=== PATIENT | female | born 1950 | race Caucasian/White ===

== ENCOUNTER 2017-01-06 10:18 | Observation (INO) | payer MEDICARE, MEDICAID ==
[2017-01-06 11:17] LABS: #Basophils 0.1 thou/uL (0.0-0.2); #Eosinphils 0.1 thou/uL (0.0-0.7); #Lymphocytes 1.3 thou/uL (1.20-3.40); #Monocytes 0.5 thou/uL (0.11-0.59); #Neutrophils 6.9 thou/uL (1.40-6.50); %Basophils 0.6 % (0.0-1.0); %Eosinophils 1.3 % (0.0-10.0); %Lymphocytes 14.6 % (21.0-51.0); %Monocytes 5.5 % (0.0-10.0); Hematocrit 36.5 % (36.0-47.0); Mean Platelet Volume 7.7 fL (7.4-10.4); Red Blood Cell (RBC) Count 3.81 mill/uL (4.20-5.40); White Blood Cell (WBC) Count 8.8 thou/uL (4.8-10.8)
[2017-01-06 11:24] LABS: PTT 28.6 SEC (22.9-36.1); Prothrombin Time 13.4 SEC (12.0-14.7)
[2017-01-06] MEDS ORDERED: Metoclopramide HCl 10 MG/2 ML VIAL ONE (11:44)
[2017-01-06] MEDS ORDERED: Acetaminophen 500 MG TAB ONE (11:44)
[2017-01-06 11:55] LABS: ALT (SGPT) 22 U/L (8-55); AST (SGOT) 19 U/L (5-34); Alkaline Phosphatase 100 U/L (40-150); Anion Gap 16 mmol/L (10-20); BUN (Urea Nitrogen) 21 mg/dL (9.8-20.1); Bilirubin, Total 0.3 mg/dL (0.2-1.2); CK (CPK) 112 U/L (29-168); Calc. Creatinine Clearance 0 mL/min (70-130); Calcium 9.8 mg/dL (7.8-10.44); Carbon Dioxide 28 mmol/L (23-31); Chloride 102 mmol/L (98-107); Estimated GFR-MDRD 43; Lipase 34 U/L (8-78); Protein, Total 7.3 g/dL (6.0-8.3)
[2017-01-06 12:00] LABS: Troponin I Less than 0.010 ng/mL (< 0.028)
[2017-01-06] MEDS ORDERED: diphenhydrAMINE HCl 50 MG/ML 1 ML VIAL ONE (13:21)
--- NOTE | 2017-01-06 13:43 | CT ---
CT BRAIN: HISTORY: Headache. Left arm and lip numbness. FINDINGS: Noncontrast enhanced CT images of the brain are obtained. Motion artifact degrade some of the images. No evidence of acute intracranial masses, hemorrhages, strokes, or contusions seen. IMPRESSION: Normal CT brain. POS: [facility]
[2017-01-06] MEDS ORDERED: methylPREDNISolone Sod Succ/PF 125 MG/2 ML VIAL ONE (15:12)
[2017-01-06] MEDS ORDERED: Water For Inject, Bacteriostat 30 ML ONE (15:25)
--- NOTE | 2017-01-06 16:36 | RAD ---
AP VIEW CHEST: 01/06/17 HISTORY: Shortness of breath. AP view chest obtained on 01/06/17. Comparison made to previous exam from 02/20/16. AP view chest demonstrates the lungs to be well aerated. No evidence of active intrathoracic disease seen. No evidence of effusions, pneumonia, or pneumothorax seen. IMPRESSION: Unremarkable AP view chest. No significant interval changes noted since the previous comparison ches t radiographs. POS: [facility]
[2017-01-06] MEDS ORDERED: Dextrose 50% Abboject 50 ML SYRINGE SLOW IVP PRN (20:20)
[2017-01-06] MEDS ORDERED: cloNIDine HCl 0.1 MG TAB PO PRN (20:20)
[2017-01-06] MEDS ORDERED: Dextrose 5% in Water 1,000 ML IV PRN (20:20)
[2017-01-06] MEDS ORDERED: Ondansetron ODT 4 MG TAB PO PRN (20:20)
[2017-01-06] MEDS ORDERED: Ondansetron HCl/PF 4 MG/2 ML Vial IVP PRN (20:20)
[2017-01-06] MEDS ORDERED: Acetaminophen 500 MG TAB PO PRN (20:20)
[2017-01-06] MEDS ORDERED: HumaLOG 300 UNITS/3 ML VIAL SC PRN ×2 (20:20)
[2017-01-06] MEDS: Atorvastatin Calcium 40 MG TAB PO SCH (20:44)
[2017-01-06] MEDS ORDERED: Famotidine 20 MG TAB PO SCH (21:00)
[2017-01-06 21:07] VITALS: BMI 27.2
--- NOTE | 2017-01-06 22:51 | HP ---
DATE OF ADMISSION: 01/06/2017 PRIMARY CARE PROVIDER: Dr. Urena. CHIEF COMPLAINT: Facial paraesthesia and left arm tingling. HISTORY OF PRESENT ILLNESS: This is a 66-year-old female, who resides at a [facility] in [place], [place], who complained of right-sided headache with associated parest hesias of the cheek and neck region with some tingling of the left hand. The patient states the sym ptoms began approximately 4:00 a.m., awaking her from sleep, at which point the patient received Tyl enol for relief. The patient fell back to sleep and awoke approximately 7:45 a.m. on the date of ad mission and complaining of similar and recurrent symptoms. The patient denies any visual disturbanc e, unilateral weakness, difficulty with speech, recent head trauma, fever, chills or exposure histor y. Patient initially stated that right-sided headache was dull and sharp and rated the pain as 8/10 . The patient denies any recent trauma, injury, recent surgical interventions or dental procedures. The patient did report mild nausea with the symptoms without emesis and denied dizziness, vertigo or fall. The patient states she takes daily aspirin, but was taken off chronic Plavix by her cardio logist. In the emergency room, the patient underwent general evaluation including CT of the brain s howing no acute intracranial process. Patient did receive multiple medications including DuoNebs, S christiano-Medrol, diphenhydramine, metoclopramide, intravenous normal saline and Tylenol. The patient was referred to the Hospitalist Service for TIA workup. PAST MEDICAL HISTORY: 1. Diabetes mellitus type 2. 2. Coronary artery disease, medically managed. 3. Chronic obstructive pulmonary disease. 4. Chronic hypoxic respiratory failure on chronic oxygen supplementation at 3 liters per minute by nasal cannula. 5. Dyslipidemia. 6. Hypertension. 7. Physical deconditioning. 8. Anxiety and depression. 9. Obesity. 10. Peripheral vascular disease. 11. Gastroesophageal reflux disease. 12. Diabetic neuropathy. 13. Ischemic cardiomyopathy with ejection fraction of 25-30%. PAST SURGICAL HISTORY: 1. Status post cardiac stent placement. 2. Status post angioplasty of the lower extremity. 3. Status post colon resection. 4. Status post surgery for ectopic x2. CURRENT MEDICATIONS: Based on prior admission 02/2016: 1. Tudorza Pressair 400 mcg 1 puff inhaled b.i.d. 2. Albuterol sulfate 2.5 mg inhaled q.2 hours p.r.n. 3. Aspirin 325 mg p.o. daily. 4. Lipitor 20 mg p.o. daily. 5. Calcium carbonate 1000 mg p.o. daily. 6. Vitamin D3 2000 units p.o. daily. 7. Ferrous sulfate 325 mg 1 tab p.o. b.i.d. 8. Breo Ellipta 100/25 mcg 1 inhalation daily. 9. Gabapentin 100 mg p.o. at bedtime. 10. Lopid 600 mg p.o. b.i.d. 11. Lisinopril 10 mg 1 tab p.o. daily. 12. Ativan 0.5 mg p.o. daily p.r.n. 13. Nitrostat 0.4 mg sublingually every 5 minutes p.r.n. chest pain. 14. Zantac 150 mg p.o. b.i.d. 15. Metformin 500 mg p.o. b.i.d. 16. Trazodone 75 mg p.o. at bedtime. ALLERGIES: CIPROFLOXACIN and NAPROXEN. FAMILY HISTORY: No inheritable diseases per patient report. SOCIAL HISTORY: Patient resides at a [facility], previously at [facility] for 6-7 years. Ambulates with the use of a rolling walker. Chronic oxygen u se at 3 liters per minute by nasal cannula. No current alcohol, tobacco or illicit drug use. REVIEW OF SYSTEMS: The following complete review of systems was negative, unless otherwise mentione d in the HPI or below: CONSTITUTIONAL: Weight loss or gain, ability to conduct usual activities. SKIN: Rash, itching. EYES: Double vision, pain. ENT/MOUTH: Nose bleeding, neck stiffness, pain, tenderness. CARDIOVASCULAR: Palpitations, dyspnea on exertion, orthopnea. RESPIRATORY: Shortness of breath, wheezing, cough, hemoptysis, fever or night sweats. GASTROINTESTINAL: Poor appetite, abdominal pain, heartburn, nausea, vomiting, constipation, or diar jd. GENITOURINARY: Urgency, frequency, dysuria, nocturia. MUSCULOSKELETAL: Pain, swelling. NEUROLOGIC/PSYCHIATRIC: Anxiety, depression. ALLERGY/IMMUNOLOGIC: Skin rash, bleeding tendency. Otherwise negative except as stated per HPI. PHYSICAL EXAMINATION: VITAL SIGNS: Currently, blood pressure 178/84, pulse 90, respiratory rate 17, temperature 97.7 degr ees Fahrenheit, O2 saturation 100% on 3 liters per minute by nasal cannula. GENERAL APPEARANCE: This is a 66-year-old female, alert and oriented x3, pleasant, conver simona, in no acute distress. HEENT: Pupils are equal, round, and reactive to light and accommodation. Extraocular muscles are i ntact. No scleral icterus, no conjunctival injection. Nares patent. OP is edentulous. No oral le sions noted. NECK: Supple, no cervical adenopathy, no thyromegaly, no carotid bruits, no JVD appreciated. Cervi nancy spine with full active and passive range of motion. No meningeal signs appreciated. LUNGS: Diminished breath sounds bilaterally. No expiratory wheeze noted. CARDIOVASCULAR: S1, S2 with distant heart sounds. ABDOMEN: Obese, soft, nontender, nondistended. Bowel sounds are positive in all 4 quadrants. Ther e is no hepatosplenomegaly, no abdominal bruits, no rebound or guarding appreciated. EXTREMITIES: Warm and dry with fair turgor. No clubbing, cyanosis or asymmetric edema appreciated. Pulses palpable distally at the dorsalis pedis, posterior tibial, and popliteal arteries bilateral ly. Capillary refill less than 2 seconds. NEUROLOGIC: Cranial nerves II-XII are grossly intact. No focal or lateralizing signs appreciated. PERTINENT LABORATORY AND X-RAY FINDINGS: Sodium 141, potassium 4.7, chloride 102, CO2 of 28, BUN 21 , creatinine 1.25 with estimated GFR 43, glucose 124, calcium 9.8. LFTs within normal limits. Trop onin negative x1. Lipase 34. CBC showed a white blood cell count 8.8, hemoglobin 11.4, hematocrit 37, platelet count 259 with 78% neutrophils. PT 13.4, INR 1.0, PTT 28.6. CT of the brain without c ontrast dated 01/06/2017, showed no acute intracranial process. Portable chest x-ray dated 01/07/20 17, showed no acute cardiopulmonary process. EKG dated 01/06/2017, by my interpretation shows sinus mechanism with a first degree AV block. Heart rates in the 80s-90s. Normal R-wave progression not ed in the precordial leads. Normal axis. No acute ST-T wave changes appreciated. ASSESSMENT AND PLAN: 1. Facial paresthesias with headache/questionable transient ischemic attack. The patient will be p laced in observation status and stroke unit. Continue aspirin 325 mg p.o. daily. Check 2D transtho racic echocardiogram and carotid Doppler study. No current evidence to suggest acute intracranial p rocess or neurologic event. Check fasting lipid profile in the a.m. Questionable tension headache versus complex migraine with paresthesias. 2. Hypertension. We will resume patient's home antihypertensive regimen and monitor clinically. 3. Hyperlipidemia. Continue Lipitor 40 mg p.o. at bedtime. Check fasting lipid profile in the a.m . 4. Chronic hypoxemic respiratory failure and chronic oxygen supplementation at 3 liters per minute. Continue general supportive measures. Continue oxygen to maintain O2 saturation greater than or e qual to 90%. No evidence to suggest acute chronic obstructive pulmonary disease exacerbation. 5. Coronary artery disease, chronic and stable. Resume home medications and monitor clinically. 6. Diabetes mellitus type 2. Stable currently. Resume metformin 500 mg p.o. b.i.d. Accu-Cheks a. c. and at bedtime. Insulin sliding scale for reflexive coverage. 7. Prophylaxis. Sequential compression devices while in bed. Pepcid 20 mg p.o. b.i.d. 8. Code status is FULL. Surrogate medical decision maker is patient's son.
[2017-01-07 06:05] LABS: Anion Gap 14 mmol/L (10-20); BUN (Urea Nitrogen) 23 mg/dL (9.8-20.1); Calc. Creatinine Clearance 53 mL/min (70-130); Calcium 9.6 mg/dL (7.8-10.44); Carbon Dioxide 29 mmol/L (23-31); Chloride 104 mmol/L (98-107); Cholesterol 160 mg/dl (< 200 Desired); Estimated GFR-MDRD 43; LDL Cholesterol, Calculated 97 mg/dL
[2017-01-07 06:48] LABS: Hematocrit 33.2 % (36.0-47.0); Mean Platelet Volume 7.9 fL (7.4-10.4); Neutrophil 66 % (42-75); Red Blood Cell (RBC) Count 3.49 mill/uL (4.20-5.40); White Blood Cell (WBC) Count 7.3 thou/uL (4.8-10.8)
[2017-01-07] MEDS: Aspirin 325 mg Enteric Coated Tablet PO SCH (08:44)
[2017-01-07] MEDS ORDERED: traMADol HCl 50 MG TAB PO PRN (10:43)
--- NOTE | 2017-01-07 10:48 | ULT ---
CAROTID DOPPLER ULTRASOUND EVALUATION: DATE: 01/07/17. HISTORY: TIAs, headaches. FINDINGS: Multiple longitudinal and transverse images of the carotid arteries obtained using a Multihertz line ar ray transducer. Real-time, color flow, and spectral waveform Doppler analysis demonstrates exten sive calcified and noncalcified ulcerated plaques in the right and left common carotid arteries exte nding into the right and left internal carotid arteries. Flow velocities are slightly increased in the left ICA measuring 133/27 cm/s. Findings suggest approximately 50% bilateral CCA as well as 30- 40% right ICA and 50-60% left ICA stenosis. Right and left vertebral arteries were not able to be visualized. The patient asked that the exam b e stopped. IMPRESSION: Bilateral common carotid artery and internal carotid artery carotid arterial disease and stenosis wi th calcified and noncalcified plaques. POS: [facility]
[2017-01-07] MEDS ORDERED: ALPRAZolam 0.25 MG TAB PO SCH (13:30)
[2017-01-07] MEDS ORDERED: cloNIDine HCl 0.1 MG TAB PO PRN (15:16)
--- NOTE | 2017-01-07 15:29 | PDOC.PN ---
- Subjective Encounter Start Date: 01/07/17 Encounter Start Time: 15:25 Subjective: f/u for ?TIA. Work up unrevealing but BP remains labile. c/o prominent -: PENNY. No fever or chills. - Objective Resuscitation Status: Resuscitation Status FULL:Full Resuscitation MAR Reviewed: Yes Vital Signs & Weight: Vital Signs (12 hours) Temp Pulse Resp BP Pulse Ox 01/07/17 14:27 80 16 100 01/07/17 12:00 98.3 F 95 22 H 216/84 H 97 01/07/17 10:44 81 16 100 01/07/17 08:45 98 F 83 18 187/77 H 97 01/07/17 08:00 98 F 83 18 01/07/17 07:23 98 01/07/17 07:22 81 20 98 01/07/17 04:13 97.8 F 72 16 128/59 L 97 Weight Weight 168 lb 9.6 oz I&O: 01/06/17 01/07/17 01/08/17 06:59 06:59 06:59 Intake Total 300 Balance 300 Result Diagrams: 01/07/17 05:19 01/07/17 05:19 Additional Labs: Accuchecks 01/07/17 01/07/17 01/06/17 11:05 05:54 20:44 POC Glucose 135 H 127 H 189 H Laboratory Tests 01/06/17 01/06/17 01/07/17 10:53 10:53 05:19 Hgb 11.4 L BUN 21 H Creatinine 1.25 H Triglycerides 111 Cholesterol 160 LDL Cholesterol, Calc 97 HDL Cholesterol 41 Radiology Reviewed by me: Yes (Carotid sono - bilat dz without focal stenosis) EKG Reviewed by me: Yes (Tele - SR in 80's) Phys Exam - Physical Examination Constitutional: NAD HEENT: PERRLA, oral pharynx no lesions Neck: no JVD, supple Respiratory: no wheezing, clear to auscultation bilateral Cardiovascular: RRR Gastrointestinal: soft, non-tender, no distention, positive bowel sounds Musculoskeletal: no edema, pulses present Neurological: normal sensation, moves all 4 limbs Psychiatric: A&O x 3 Skin: normal turgor, cap refill <2 seconds Dx/Plan (1) TIA (transient ischemic attack) Status: Acute Comment: ? TIA vs uncontrolled HTN and paresthesias, continue BP control measures, ASA and monitor clinically. No acute evidence of CVA, Lipitor 40mg HS (2) CAD (coronary artery disease) Code(s): I25.10 - ATHSCL HEART DISEASE OF [place] CORONARY ARTERY W/O ANG PCTRS Status: Chronic (3) Chronic respiratory failure with hypoxia Code(s): J96.11 - CHRONIC RESPIRATORY FAILURE WITH HYPOXIA Status: Chronic Comment: Continue O2 supplementation, baseline respiratory status (4) Hypertension Code(s): I10 - ESSENTIAL (PRIMARY) HYPERTENSION Status: Chronic Comment: Uncontrolled after apparent d/c of all prior antihypertensives, start Lisinopril 10mg daily and Metoprolol 12.5mg BID, titrate BP regimen to clinical response (5) Type 2 diabetes mellitus Status: Chronic Comment: ISS, Metformin - Plan PT/OT, social services director, out of bed/ambulate, DVT proph w/SCDs Start Lisinopril 10mg daily -: Start Metoprolol 12.5mg BID -: Continue ASA and Lipitor -: Pain control for PENNY -: Xanax 0.25mg TID prn * 2D Echo pending
[2017-01-07] MEDS ORDERED: Lisinopril 10 MG TAB PO SCH (15:45)
[2017-01-07] MEDS ORDERED: Lisinopril 20 MG TAB PO SCH (16:00)
[2017-01-07] MEDS ORDERED: Metoprolol Tartrate 25 MG TAB PO SCH (18:00)
[2017-01-07] MEDS: ALPRAZolam 0.25 MG TAB PO SCH (20:35)
[2017-01-07] MEDS: Atorvastatin Calcium 40 MG TAB PO SCH (20:36)
[2017-01-07] MEDS ORDERED: Famotidine 20 MG TAB PO SCH (21:00)
[2017-01-08] MEDS ORDERED: Metoprolol Tartrate 25 MG TAB PO SCH (09:00)
[2017-01-08] MEDS ORDERED: Lisinopril 10 MG TAB PO SCH (09:00)
[2017-01-08] MEDS: Aspirin 325 mg Enteric Coated Tablet PO SCH (10:04)
[2017-01-08] MEDS: ALPRAZolam 0.25 MG TAB PO SCH (10:06)
--- NOTE | 2017-01-08 10:32 | DIS ---
DATE OF ADMISSION: 01/06/2017 DATE OF DISCHARGE: 01/08/2017 DISCHARGE DIAGNOSES: 1. Transient ischemic attack secondarily to #1, resolved. 2. Hypertension, improved. 3. Coronary artery disease, chronic and stable. 4. Chronic hypoxic respiratory failure with oxygen supplementation at 2-3 liters per minute by nasa l cannula. 5. Diabetes mellitus type 2, stable. 6. Chronic kidney disease stage 3. 7. Dyslipidemia. 8. Chronic normocytic anemia, stable. 9. Anxiety disorder. CONSULTATIONS: None. PERTINENT LABORATORY DATA AND X-RAY FINDINGS: Creatinine ranged between 1.23-1.25 with estimated GF R of 43. Total cholesterol 160, triglycerides 111, HDL 41, LDL 97. CBC showed hemoglobin ranged be tween 10.6-11.4. CT of the brain without contrast dated 01/06/2017 showed no acute intracranial pro cess. Portable chest x-ray dated 01/06/2017 showed no acute cardiopulmonary process. Carotid Doppl er study dated 01/07/2017 showed bilateral carotid artery disease without focal stenosis. A 2D anne sthoracic echocardiogram dated 01/07/2017 showed ejection fraction of 55%-60%. Technically limited exam. Grade I/III diastolic dysfunction. Moderate left atrial enlargement. HOSPITAL COURSE: Patient was observed on the stroke unit after initially presenting with facial and left arm paresthesias. Patient underwent general stroke protocol after concern for TIA versus CVA including CT imaging of the brain showing no acute intracranial process. The patient's symptoms res olved rapidly and patient was treated with aspirin 325 mg. The patient continued under general stro ke protocol including 2D transthoracic echocardiogram and carotid Doppler study with carotid ultraso und showing carotid artery disease without focal stenosis or need for surgical intervention. The pa tient was continued on aspirin therapy and in addition Lipitor 40 mg at bedtime. The patient was al so noted with labile hypertension and essentially untreated initiated on metoprolol 12.5 mg b.i.d. a nd lisinopril 10 mg daily. The patient may need additional titration of her antihypertensive regime n on an ongoing basis after discharge. Overall, the patient remained clinically stable throughout t he remainder of the hospital course, tolerating regular oral intake, ambulating with the use of a ro lling walker with telemetry monitoring showing sinus mechanism without acute arrhythmia or dysrhythm ia. The patient is clinically stable and ready for discharge 01/08/2017. DISCHARGE MEDICATIONS: 1. Enteric coated aspirin 81 mg 1 tablet p.o. daily. 2. Xanax 0.125 mg p.o. b.i.d. 3. Tudorza Pressair 1 puff inhaled b.i.d. 4. Albuterol sulfate 2.5 mg inhaled every 2 hours p.r.n. 5. Maalox p.r.n. 6. Lipitor 40 mg p.o. at bedtime. 7. Calcium carbonate 500 mg p.o. q.6 hours p.r.n. 8. Vitamin D3 1000 units p.o. daily. 9. Ferrous sulfate 325 mg p.o. b.i.d. 10. Breo Ellipta one inhalation daily. 11. Lopid 600 mg p.o. b.i.d. 12. DuoNeb 3 mL nebulized q.i.d. p.r.n. 13. Magnesium 250 mg p.o. daily. 14. Metoprolol 12.5 mg p.o. b.i.d. 15. Nitrostat 0.4 mg sublingually every 5 minutes p.r.n. chest pain. 16. Senna Plus 1 tablet p.o. daily. 17. Zantac 150 mg 1 tablet p.o. b.i.d. 18. Clonidine 0.1 mg p.o. q.i.d. p.r.n. systolic greater than 150 or diastolic greater than 100. 19. Metformin 500 mg 1 tablet p.o. b.i.d. 20. Tramadol 50 mg 1 tablet p.o. daily p.r.n. 21. Trazodone 75 mg p.o. at bedtime. FOLLOWUP: The patient will follow up with Dr. Amaral at [facility]. CONDITION ON DISCHARGE: Fair. ACTIVITY: Ad daniel. DIET: Heart healthy and ADA. CODE STATUS: FULL. DISPOSITION: Discharged to [facility] on 01/08/2017.
[2017-01-08 12:39] VITALS: TEMP 98.2
[2017-01-08 12:55] VITALS: BP 101/54
== END 2017-01-08 13:11 ==
LOC: ERS 10:18 → 2SE 17:58 → INTOOBSV 17:58
PROVIDERS: ADMIT Family Medicine; ATTEND Family Medicine
DX: G45.9 Transient cerebral ischemic attack, unspecified (principal); E11.51 Type 2 diabetes mellitus with diabetic peripheral angiopathy without gangrene; K21.9 Gastro-esophageal reflux disease without esophagitis; E11.40 Type 2 diabetes mellitus with diabetic neuropathy, unspecified; I13.10 Hypertensive heart and chronic kidney disease without heart failure, with stage 1 through stage 4 chronic kidney disease, or unspecified chronic kidney disease; E11.22 Type 2 diabetes mellitus with diabetic chronic kidney disease; N18.3 Chronic kidney disease, stage 3 (moderate); J96.11 Chronic respiratory failure with hypoxia; E78.5 Hyperlipidemia, unspecified; D64.9 Anemia, unspecified; F41.8 Other specified anxiety disorders; E66.9 Obesity, unspecified; R53.81 Other malaise; Z99.81 Dependence on supplemental oxygen; Z79.84 Long term (current) use of oral hypoglycemic drugs; Z79.82 Long term (current) use of aspirin; Z79.51 Long term (current) use of inhaled steroids; Z79.899 Other long term (current) drug therapy; Z88.6 Allergy status to analgesic agent; Z88.1 Allergy status to other antibiotic agents; Z87.891 Personal history of nicotine dependence; Z68.28 Body mass index [BMI] 28.0-28.9, adult
CPT/HCPCS: 70450; 71010; 80048; 80053; 80061; 82550; 82553; 82962 ×3; 83690; 84484; 85007; 85025; 85027; 85610; 85652; 85730; 90732 ×2; 93005; 93306; 93880; 94640 ×4; 96361; 96374; 96375; 97139 ×2; 97535; 99285; G0009 ×2; G0378; G8978; G8979; G8987; G8988; 36415; 36416; 90471; A4216; G8996-GN-CH; G8997-GN-CH; J1200; J2765; J2930; J7620

== ENCOUNTER 2017-01-14 18:55 | Emergency (ER) | payer MEDICARE, MEDICAID ==
[2017-01-14] MEDS ORDERED: Dexamethasone 4 mg/ml Vial ONE (19:23)
[2017-01-14] MEDS ORDERED: Fentanyl 100 MCG/2 ML VIAL ONE (19:23)
[2017-01-14] MEDS ORDERED: Metoclopramide HCl 10 MG/2 ML VIAL ONE (19:23)
== END 2017-01-14 21:15 | disposition home or self-care (01) ==
LOC: ERS 18:55
DX: R51 Headache (principal); J44.9 Chronic obstructive pulmonary disease, unspecified; I25.10 Atherosclerotic heart disease of native coronary artery without angina pectoris; D50.0 Iron deficiency anemia secondary to blood loss (chronic); E11.42 Type 2 diabetes mellitus with diabetic polyneuropathy; K21.9 Gastro-esophageal reflux disease without esophagitis; E78.5 Hyperlipidemia, unspecified; F41.9 Anxiety disorder, unspecified; F32.9 Major depressive disorder, single episode, unspecified; Z86.73 Personal history of transient ischemic attack (TIA), and cerebral infarction without residual deficits; Z79.899 Other long term (current) drug therapy; Z79.84 Long term (current) use of oral hypoglycemic drugs; Z79.82 Long term (current) use of aspirin
CPT/HCPCS: 96374; 96375; J1100; J2765; J3010

== ENCOUNTER 2017-05-05 11:10 | Emergency (ER) | payer MEDICARE, MEDICAID ==
[2017-05-05 11:42] LABS: #Eosinphils 0.2 thou/uL (0.0-0.7); #Lymphocytes 1.6 thou/uL (1.20-3.40); #Monocytes 0.6 thou/uL (0.11-0.59); #Neutrophils 5.8 thou/uL (1.40-6.50); %Basophils 0.5 % (0.0-1.0); %Eosinophils 2.4 % (0.0-10.0); %Lymphocytes 19.3 % (21.0-51.0); %Monocytes 6.9 % (0.0-10.0); Hemoglobin 10.5 g/dL (12.0-16.0); Mean Corpuscular HGB CONC 31.9 g/dL (32.0-36.0); Mean Corpuscular Hemoglobin 30.1 pg (27.0-31.0); Mean Corpuscular Volume 94.6 fl (81.0-99.0); Mean Platelet Volume 7.8 fL (7.4-10.4); Platelet Count 213 thou/uL (130-400); RBC Distribution Width 12.8 % (11.5-14.5); Red Blood Cell (RBC) Count 3.49 mill/uL (4.20-5.40); White Blood Cell (WBC) Count 8.1 thou/uL (4.8-10.8)
[2017-05-05 12:01] LABS: ALT (SGPT) 16 U/L (8-55); AST (SGOT) 12 U/L (5-34); Albumin 4.1 g/dL (3.4-4.8); Alkaline Phosphatase 95 U/L (40-150); Anion Gap 12 mmol/L (10-20); BUN (Urea Nitrogen) 21 mg/dL (9.8-20.1); Bilirubin, Total 0.4 mg/dL (0.2-1.2); Calc. Creatinine Clearance 0 mL/min (70-130); Calcium 9.6 mg/dL (7.8-10.44); Carbon Dioxide 27 mmol/L (23-31); Chloride 105 mmol/L (98-107); Estimated GFR-MDRD 41; Globulin 2.6 g/dL (2.4-3.5); Glucose 110 mg/dL (80-115); Potassium 4.4 mmol/L (3.5-5.1); Protein, Total 6.7 g/dL (6.0-8.3); Sodium 140 mmol/L (136-145)
[2017-05-05 12:04] LABS: Bilirubin Negative (Negative); Blood, Urine Trace (Negative); Clarity CLEAR (Clear); Glucose, Urine (Dipstick) Negative (Negative); Leukocyte Negative (Negative); Nitrite Negative (Negative); Protein, Urine (Dipstick) Negative (Neg-Trace); Specific Gravity, Urine 1.008 (1.002-1.036); Urobilinogen 0.2 mg/dL (0.2-1.0)
[2017-05-05 12:07] LABS: Bacteria/HPF None Seen HPF (None Seen); Hyaline Casts/LPF 0-3 HYALINE CAST LPF (0-3 Hyaline); RBC/HPF 0-3 HPF (0-3); Squamous Epithelial None Seen HPF (0-3); WBC/HPF None Seen HPF (0-3)
--- NOTE | 2017-05-05 15:37 | CT ---
CT OF THE ABDOMEN AND PELVIS WITH CONTRAST 05/05/17 COMPARISON: CT abdomen/pelvis 02/18/16. HISTORY: Bleeding/hematuria when wiping this morning. Patient has history of pneumonia and colon cancer. TECHNIQUE: Multiple contiguous axial images were obtained in a CT of the abdomen and pelvis with contrast. Coron al reformats were performed. FINDINGS: The right kidney is absent. The liver, gallbladder, left kidney, adrenal glands, spleen and pancreas are unremarkable. No free air, free fluid, or stranding changes are seen in the abdomen or pelvis. Th e reproductive organs are unremarkable. The large and small bowel are unremarkable. The appendix is n ormal. No abdominal or pelvic lymphadenopathy are seen. There is an anastomotic staple line within th e colon from prior colon surgery. No abdominal or pelvic lymphadenopathy are seen. Degenerative changes are seen in the spine. The visualized inferior thorax and abdominal wall soft ti ssues are unremarkable. IMPRESSION: 1. No evidence of acute intra-abdominal/pelvic abnormality. 2. Absence of the right kidney. POS: [facility]
[2017-05-05] MEDS ORDERED: ISOVUE-370 76%-LOCM 1 ML ONE (16:55)
== END 2017-05-05 16:00 | disposition home or self-care (01) ==
LOC: ERS 11:10
DX: R31.9 Hematuria, unspecified (principal); J44.9 Chronic obstructive pulmonary disease, unspecified; I25.2 Old myocardial infarction; K21.9 Gastro-esophageal reflux disease without esophagitis; E11.9 Type 2 diabetes mellitus without complications; E78.5 Hyperlipidemia, unspecified; I10 Essential (primary) hypertension; F41.9 Anxiety disorder, unspecified; F32.9 Major depressive disorder, single episode, unspecified; D50.0 Iron deficiency anemia secondary to blood loss (chronic); I25.10 Atherosclerotic heart disease of native coronary artery without angina pectoris; Z79.82 Long term (current) use of aspirin; Z79.899 Other long term (current) drug therapy; Z79.84 Long term (current) use of oral hypoglycemic drugs
CPT/HCPCS: 36415; 74177; 80053; 81003; 81015; 85025; 93005

== ENCOUNTER 2017-06-21 09:42 | Outpatient (CLI) | payer MEDICARE, MEDICAID ==
[2017-06-21] MEDS ORDERED: Iopamidol 370 76% 100 ML VIAL ONE (10:43)
== END 2017-06-21 09:43 | disposition home or self-care (01) ==
LOC: BICCT 09:42
PROVIDERS: ATTEND Family Medicine
DX: R91.8 Other nonspecific abnormal finding of lung field (principal); J43.9 Emphysema, unspecified; M85.88 Other specified disorders of bone density and structure, other site
CPT/HCPCS: 71260

== ENCOUNTER 2017-07-03 11:00 | Outpatient (CLI) | payer MEDICARE, MEDICAID ==
--- NOTE | 2017-07-04 14:31 | PET ---
WHOLE BODY PET CT: CLINICAL HISTORY: Pulmonary nodule. Reference made to CT chest dated 06/21/17. FINDINGS: The spiculated pulmonary nodule of the perihilar aspect of the right lung within the right middle lob e is hypermetabolic, with SUV measuring up to 4.3. This nodule does account for the previous two emma cent nodules described on prior CT, having the appearance of one lobular/spiculated nodule rather madyson n two adjacent nodules. There is a mild degree of satellite nodularity about its periphery. The addit ional small, subpleural ground-glass nodular density of the right lower lobe is too small to further characterize. No hypermetabolic adenopathy is seen. Incidental note of prominent distention of the gallbladder with peripheral calcification. There is a rounded isodense focus at the gallbladder neck suggestive of noncalcified gallstone. There is diffuse vascular disease. There is a fat-containing posterior left diaphragmatic hernia. IMPRESSION: 1. Hypermetabolic spiculated right middle lobe pulmonary nodule is indicative of malignancy. The add itional subcentimeter ground-glass nodule of the right lower lobe is too small to definitively charac terize. Recommend pulmonary medicine consultation. 2. Incidental note of a distended, peripherally calcified gallbladder. There is a radiolucent rounde d density at the gallbladder neck which could relate to noncalcified gallstone. Recommend follow-up w ith gallbladder ultrasound to further evaluation. POS: [facility]
== END 2017-07-03 11:01 | disposition home or self-care (01) ==
LOC: PET 11:00
PROVIDERS: ATTEND Family Medicine
DX: R91.8 Other nonspecific abnormal finding of lung field (principal); K82.8 Other specified diseases of gallbladder
CPT/HCPCS: 78815; A9552

== ENCOUNTER 2017-10-31 16:32 | Emergency (ER) | payer MEDICARE, MEDICAID ==
--- NOTE | 2017-10-31 19:04 | RAD ---
TWO VIEWS OF THE CHEST: 10/31/17 COMPARISON: 12/26/14 HISTORY: Cough with possible TB. FINDINGS: Two views of the chest show normal sized cardiomediastinal silhouette. There is no evidence of consol idation, mass, or pleural effusion. The bones are unremarkable. IMPRESSION: No evidence of acute cardiopulmonary disease. POS: [facility]
== END 2017-10-31 19:27 | disposition home or self-care (01) ==
LOC: ERS 16:32
DX: R05 Cough (principal); I25.10 Atherosclerotic heart disease of native coronary artery without angina pectoris; D50.0 Iron deficiency anemia secondary to blood loss (chronic); K21.9 Gastro-esophageal reflux disease without esophagitis; E11.9 Type 2 diabetes mellitus without complications; E78.5 Hyperlipidemia, unspecified; I10 Essential (primary) hypertension; F41.9 Anxiety disorder, unspecified; F32.9 Major depressive disorder, single episode, unspecified; J44.9 Chronic obstructive pulmonary disease, unspecified; Z79.82 Long term (current) use of aspirin; Z79.84 Long term (current) use of oral hypoglycemic drugs; Z79.899 Other long term (current) drug therapy
CPT/HCPCS: 71046; 99284

== ENCOUNTER 2018-01-28 09:57 | Outpatient (CLI) | payer MEDICARE, MEDICAID ==
[2018-01-28] MEDS ORDERED: ISOVUE-370 76%-LOCM 1 ML ONE (10:11)
--- NOTE | 2018-01-28 12:38 | CT ---
CONTRAST ENHANCED CT CHEST DATED 01/28/2018. COMPARISON: Comparison is made to previous exam from 06/21/2017. FINDINGS: Contrast-enhanced CT of the chest demonstrates extensive pulmonary emphysematous changes seen in the upper lobes. The small right lower lobe nodule seen on image #64 is slightly smaller than on the pre vious comparison exam. Right middle lobe opacities also appear to be present, not significantly changed since the previous e xam. There is a newly developed spiculated density measuring approximately 9.2 mm in the left lower lobe. This is in the superior segment and has developed in the interim. Newly developed left lower lobe m alignancy cannot be excluded. Extensive coronary artery calcification seen. No evidence of mediastinal, axillary, or hilar lymphadenopathy is seen. No definite evidence of osseous lesions seen. IMPRESSION: Newly developed superior segment left lower lobe spiculated lung parenchymal mass. POS: [facility]
== END 2018-01-28 09:58 | disposition home or self-care (01) ==
LOC: BICCT 09:57
PROVIDERS: ATTEND Radiology Radiation Oncology
DX: C34.2 Malignant neoplasm of middle lobe, bronchus or lung (principal); R91.8 Other nonspecific abnormal finding of lung field
CPT/HCPCS: 71260; 82565

== ENCOUNTER 2018-02-24 15:32 | Observation (INO) | payer MEDICARE, MEDICAID ==
[2018-02-24 15:58] LABS: #Eosinphils 0.2 thou/uL (0.0-0.7); #Lymphocytes 1.4 thou/uL (1.20-3.40); #Monocytes 0.4 thou/uL (0.11-0.59); #Neutrophils 5.1 thou/uL (1.40-6.50); %Basophils 0.7 % (0.0-1.0); %Eosinophils 3.3 % (0.0-10.0); %Lymphocytes 18.8 % (21.0-51.0); %Monocytes 5.5 % (0.0-10.0); %Neutrophils 71.6 % (42.0-75.0); Mean Corpuscular HGB CONC 30.5 g/dL (32.0-36.0); Mean Corpuscular Hemoglobin 29.5 pg (27.0-31.0); Mean Corpuscular Volume 96.7 fL (78.0-98.0); Mean Platelet Volume 7.9 fL (7.4-10.4); Platelet Count 239 thou/uL (130-400); RBC Distribution Width 12.6 % (11.5-14.5); Red Blood Cell (RBC) Count 3.72 mill/uL (4.20-5.40); White Blood Cell (WBC) Count 7.1 thou/uL (4.8-10.8)
--- NOTE | 2018-02-24 15:58 | RAD ---
CHEST 1 VIEW: Date: 02/24/18 HISTORY: Chest pain. COMPARISON: Radiograph dated 01/06/17. FINDINGS: There are interstitial opacities throughout both lungs and hilum bilaterally. No pneumothorax. No eff usion. Heart size is similar. IMPRESSION: Mild pulmonary edema. POS: [facility]
[2018-02-24 16:21] LABS: ALT (SGPT) 23 U/L (8-55); AST (SGOT) 16 U/L (5-34); Albumin 4.2 g/dL (3.4-4.8); Alkaline Phosphatase 101 U/L (40-150); Anion Gap 12 mmol/L (10-20); BUN (Urea Nitrogen) 19 mg/dL (9.8-20.1); Bilirubin, Total 0.4 mg/dL (0.2-1.2); CK (CPK) 126 U/L (29-168); Calc. Creatinine Clearance 0 mL/min (70-130); Calcium 9.5 mg/dL (7.8-10.44); Carbon Dioxide 30 mmol/L (23-31); Chloride 103 mmol/L (98-107); Estimated GFR-MDRD 34; Globulin 2.9 g/dL (2.4-3.5); Glucose 101 mg/dL (80-115); Potassium 4.4 mmol/L (3.5-5.1); Protein, Total 7.1 g/dL (6.0-8.3); Sodium 141 mmol/L (136-145)
[2018-02-24 16:27] LABS: CKMB 2.2 ng/mL (0-6.6); Troponin I Less than 0.010 ng/mL (< 0.028)
[2018-02-24] MEDS ORDERED: Dextrose 5% in Water 1,000 ML IV PRN (19:50)
[2018-02-24] MEDS ORDERED: Dextrose 50% Abboject 50 ML SYRINGE IVP PRN (19:50)
[2018-02-24] MEDS ORDERED: Insulin Regular 300 UNITS/3 ML VIAL SC PRN (19:50)
[2018-02-24] MEDS ORDERED: Topiramate 25 MG TAB PO PRN (20:11)
[2018-02-24] MEDS ORDERED: Acetaminophen 325 MG TAB PO PRN (20:20)
[2018-02-24] MEDS ORDERED: Diabetic Tussin 200 MG/10 ML UDCUP PO PRN (20:23)
[2018-02-24] MEDS ORDERED: Milk Of Magnesia 30 ML UDCUP PO PRN (20:26)
[2018-02-24] MEDS ORDERED: MENTHOL (BIOFREEZE 4% GEL) TOP PRN (20:29)
[2018-02-24] MEDS ORDERED: Metoclopramide HCl 10 MG TAB PO PRN (20:31)
[2018-02-24] MEDS ORDERED: Nitroglycerin 0.4 MG TAB (25 Tab Bottle) SL PRN (20:32)
[2018-02-24] MEDS ORDERED: Promethazine 25 MG TAB PO PRN (20:33)
[2018-02-24] MEDS ORDERED: Calcium Carbonate 500 MG ChewTAB PO PRN (20:37)
[2018-02-24] MEDS: Magnesium Oxide 250 MG TAB PO SCH (20:59)
[2018-02-24] MEDS: traZODone HCl 50 MG TAB PO SCH (21:00)
[2018-02-24] MEDS: Atorvastatin Calcium 40 MG TAB PO SCH (21:00)
[2018-02-24] MEDS: ALPRAZolam 0.25 MG TAB PO SCH (21:00)
[2018-02-24] MEDS ORDERED: Aspirin 325 MG TAB PO SCH (21:00)
[2018-02-24] MEDS: Famotidine 20 MG TAB PO SCH (21:00)
[2018-02-24] MEDS: Metoprolol Tartrate 25 MG TAB PO SCH (21:05)
[2018-02-24 21:11] LABS: Troponin I Less than 0.010 ng/mL (< 0.028)
[2018-02-24] MEDS: Senokot S 8.6-50 MG TAB PO SCH (21:16)
[2018-02-25 00:04] LABS: Troponin I Less than 0.010 ng/mL (< 0.028)
[2018-02-25] MEDS ORDERED: Ipratropium Bromide 2.5 ml Neb NEB SCH (01:00)
[2018-02-25] MEDS: Mometasone/Formoterol 120 PUFF INHALER INH SCH ×2 (07:15→18:31)
--- NOTE | 2018-02-25 07:22 | HP ---
DATE OF ADMISSION: 02/24/2018 REASON FOR ADMISSION AND CHIEF COMPLAINT: Chest pain. HISTORY OF PRESENT ILLNESS: Ms. Mahoney is a 67-year-old female with past medical history o f COPD, hypertension, diabetes mellitus, hyperlipidemia, who came with sudden onset of chest pain in the mid chest area that started this afternoon, it is dull ache in nature, not associated with any sh ortness of breath or diaphoresis, but she was feeling dizzy also. It is somewhere in the substernal area, not radiating. The patient states she has never felt that before this kind of pain, so EMS was called in, patient received aspirin and put on oxygen, brought to the hospital. In the ER, the teresa ent was evaluated. The patient was chest pain free. Patient was given DuoNebs and admitted to rule o ut myocardial infarction. PAST MEDICAL HISTORY: 1. Hypertension. 2. Diabetes mellitus. 3. Coronary artery disease. 4. Chronic obstructive pulmonary disease, end-stage. 5. Chronic respiratory failure, oxygen dependent. 6. Dyslipidemia. 7. Anxiety and depression. 8. Gastroesophageal reflux disease. 9. Ischemic cardiomyopathy with ejection fraction of 25%, also lung nodule, possible malignancy. PAST SURGICAL HISTORY: Status post cardiac stent placement, status post angioplasty of lower extremi ties, status post colon resection, status post surgery for ectopic x2. CURRENT MEDICATIONS: The patient is on aspirin 81 mg daily, Lipitor 40 mg daily, lisinopril 10 mg da leonel, Topamax 50 mg daily, trazodone 50 mg daily, ferrous sulfate daily, magnesium 250 b.i.d., metform in 500 b.i.d., metoprolol 12.5 b.i.d., Xanax 0.25 b.i.d., Claritin daily, milk of magnesia p.r.n., an d DuoNebs q.i.d. ALLERGIES: CIPRO, NAPROXEN. FAMILY HISTORY: Nothing of interest. SOCIAL HISTORY: The patient is a resident of [facility]. No history of alcohol intake. No history of smoking. REVIEW OF SYSTEMS: Cardiovascular: Has chest pain. No shortness of breath. Respiratory: No fever or cough. Gastrointestinal: No nausea or vomiting. Central nervous system: No headache or dizzin ess. PHYSICAL EXAMINATION: GENERAL: The patient is alert, awake, oriented x3. VITAL SIGNS: Temperature 98, pulse 89, respirations 20, blood pressure 130/60. HEENT: Head is normocephalic, atraumatic. Pupils are equal and reactive to light. Nasopharynx is p topher and dry. Hard and soft palate, no lesions seen. SKIN: Turgor is decreased. NECK: Supple. No JVD. LUNGS: Breath sounds diminished bilaterally. Percussion not dull bilaterally. No wheezing. HEART: S1, S2 regular. ABDOMEN: Soft, no distention, no tenderness. No organomegaly. Bowel sounds present. RECTAL: Deferred. CENTRAL NERVOUS SYSTEM: No focal deficit. LABORATORY AND X-RAY FINDINGS: CBC shows WBC 7, hemoglobin 11, hematocrit 36, platelets 59. Metabol ic panel: Sodium 140, potassium 4.4, chloride 102, CO2 of 30, BUN 12, creatinine 1.5, glucose 101. Chest x-ray mild pulmonary vascular congestion. EKG showed normal sinus rhythm, no acute ST-T wave c hanges seen. ASSESSMENT: 1. Chest pain, rule out myocardial infarction. 2. Diabetes mellitus. 3. Hypertension. 4. Coronary artery disease, status post stent. 5. Hyperlipidemia. 6. End-stage chronic obstructive pulmonary disease. PLAN: 1. Vital signs q.4 hours. 2. Activity: As tolerated. 3. Allergies: CIPRO and NAPROXEN. 4. Hep-Lock. 5. Diet: Cardiac. 6. Continue senior care medication. 7. Accu-Chek a.c. and at bedtime. 8. Sliding scale mild with regular insulin. 9. Troponin I q.6 hours x2. 10. We will obtain Cardiolite stress test tomorrow.
[2018-02-25] MEDS: Metoprolol Tartrate 25 MG TAB PO SCH ×2 (07:36→20:24)
[2018-02-25] MEDS ORDERED: Regadenoson 0.4 MG/5 ML SYRINGE ONE (10:32)
[2018-02-25] MEDS: Magnesium Oxide 250 MG TAB PO SCH ×2 (10:54→20:26)
[2018-02-25] MEDS: Ferrous Sulfate 325 MG TAB PO SCH ×2 (10:55→18:04)
[2018-02-25] MEDS: ALPRAZolam 0.25 MG TAB PO SCH ×2 (10:56→20:34)
[2018-02-25] MEDS: Senokot S 8.6-50 MG TAB PO SCH ×2 (10:56→20:34)
[2018-02-25] MEDS: Aspirin 81 mg Enteric Coated Tablet PO SCH (10:56)
[2018-02-25] MEDS: Lisinopril 10 MG TAB PO SCH (10:57)
[2018-02-25] MEDS: Multivit, Therapeutic 1 TAB PO SCH (10:57)
[2018-02-25] MEDS: Famotidine 20 MG TAB PO SCH ×2 (10:58→20:35)
[2018-02-25] MEDS: Loratadine 10 MG TAB PO SCH (10:58)
[2018-02-25] MEDS: Polyethylene Glycol 3350 17 GM Packet PO SCH (11:28)
[2018-02-25] MEDS: Fluticasone Propionate Nasal Spray 16 gm Bottle NASAL SCH (11:28)
--- NOTE | 2018-02-25 12:09 | NM ---
NUCLEAR MEDICINE CARDIAC STRESS ONLY CARDIAC SPECT WITH EJECTION FRACTION AND WALL MOTION: Date: 02/25/18 HISTORY: 37-year-old female with history of chest pain, coronary artery disease, PTCA status post stent, and c ardiac catheterization. FINDINGS: Patient was injected with 32.0 mCi technetium-99m sestamibi intravenously. Stress only examination de monstrates no evidence for abnormal decreased activity in the short axis, vertical long axis, or hori zontal long axis to suggest infarct or ischemia. LHR: 0.33 EDV: 80 mL EF: 70% MYOCARDIAL PERFUSION WALL MOTION: Wall motion is normal. IMPRESSION: Normal stress only cardiac SPECT with ejection fraction and wall motion. POS: [facility]
[2018-02-25] MEDS: traZODone HCl 50 MG TAB PO SCH (20:26)
[2018-02-25] MEDS: Atorvastatin Calcium 40 MG TAB PO SCH (20:33)
[2018-02-26 04:02] VITALS: BMI 30.9
[2018-02-26] MEDS: Mometasone/Formoterol 120 PUFF INHALER INH SCH (07:51)
[2018-02-26 08:00] VITALS: BP 133/63; TEMP 98.4
[2018-02-26] MEDS: Aspirin 81 mg Enteric Coated Tablet PO SCH (08:54)
[2018-02-26] MEDS: Multivit, Therapeutic 1 TAB PO SCH (08:54)
[2018-02-26] MEDS: Loratadine 10 MG TAB PO SCH (08:54)
[2018-02-26] MEDS: Ferrous Sulfate 325 MG TAB PO SCH (08:54)
[2018-02-26] MEDS: ALPRAZolam 0.25 MG TAB PO SCH (08:54)
[2018-02-26] MEDS: Lisinopril 10 MG TAB PO SCH (08:55)
[2018-02-26] MEDS: Famotidine 20 MG TAB PO SCH (08:55)
[2018-02-26] MEDS: Metoprolol Tartrate 25 MG TAB PO SCH (08:55)
[2018-02-26] MEDS: Senokot S 8.6-50 MG TAB PO SCH (08:56)
[2018-02-26] MEDS: Fluticasone Propionate Nasal Spray 16 gm Bottle NASAL SCH (08:56)
[2018-02-26] MEDS: Polyethylene Glycol 3350 17 GM Packet PO SCH (08:56)
[2018-02-26] MEDS: Magnesium Oxide 250 MG TAB PO SCH (09:02)
--- NOTE | 2018-02-27 04:59 | DIS ---
DATE OF ADMISSION: 02/24/2018 DATE OF DISCHARGE: 02/26/2018 ADMITTING DIAGNOSES: 1. Chest pain, rule out myocardial infarction. 2. Diabetes mellitus. 3. Hypertension. 4. Coronary artery disease 5. Hyperlipidemia. 6. End-stage chronic obstructive pulmonary disease. FINAL DIAGNOSES: 1. Chest pain. No evidence of acute myocardial infarction, negative Cardiolite stress test. 2. Diabetes mellitus. 3. Hypertension. 4. Coronary artery disease. 5. Chronic obstructive pulmonary disease. BRIEF SUMMARY OF HOSPITAL COURSE: Ms. Mahoney is a 67-year-old, female with past medical hi story of hypertension, diabetes, COPD, lung cancer, who came because of chest pain. The patient did not have any diaphoresis or nausea. She had some shortness of breath. She was admitted to rule out myocardial infarction in view of risk factors. Serial cardiac enzymes were done, they were within no rmal limits. A Cardiolite stress test was done, and it was reported as negative for ischemia. The p atient did not have anymore chest pain while in the hospital. Her vital signs remained stable. Her blood pressure was controlled. In view of that, the patient was discharged back to shelter. At the time of discharge, she was stable. Her vital signs stable. Lungs clear. Heart sounds regular. Abdomen was soft, nontender. Bowel sounds present. DISCHARGE MEDICATIONS: Include aspirin 81 mg daily, Tylenol p.r.n., ferrous sulfate b.i.d., Zantac 1 50 b.i.d., nitroglycerin p.r.n., Phenergan p.r.n., trazodone 50 mg at bedtime, magnesium 200 mg b.i.d ., lisinopril 10 mg daily, metoprolol 12.5 b.i.d., Lipitor 40 mg daily, DuoNebs q.i.d., metformin 500 mg b.i.d., metoclopramide 10 mg q.6 hours p.r.n., Topamax was discontinued, MiraLax 17 grams daily, multivitamin daily, Flonase nasal spray daily, Xanax 0.25 b.i.d. FOLLOWUP: The patient will be followed up at shelter.
== END 2018-02-26 10:48 ==
LOC: ERS 15:32 → 2SW 16:47 → ERS 18:10
PROVIDERS: ADMIT Internal Medicine; ATTEND Internal Medicine
DX: R07.9 Chest pain, unspecified (principal); I10 Essential (primary) hypertension; E11.9 Type 2 diabetes mellitus without complications; I25.10 Atherosclerotic heart disease of native coronary artery without angina pectoris; J44.9 Chronic obstructive pulmonary disease, unspecified; E78.5 Hyperlipidemia, unspecified; J96.10 Chronic respiratory failure, unspecified whether with hypoxia or hypercapnia; K21.9 Gastro-esophageal reflux disease without esophagitis; I25.5 Ischemic cardiomyopathy; Z79.82 Long term (current) use of aspirin; Z79.899 Other long term (current) drug therapy; Z95.5 Presence of coronary angioplasty implant and graft; Z88.8 Allergy status to other drugs, medicaments and biological substances; Z88.1 Allergy status to other antibiotic agents
CPT/HCPCS: 71045; 78452; 80053; 82550; 82553; 82962 ×3; 83880; 84484 ×2; 85025; 93005; 93017; 94640 ×5; 99285; A9500; G0378 ×2; 36415; 36416; J1815; J2785; J7620

== ENCOUNTER 2018-04-30 09:35 | Outpatient (CLI) | payer MEDICARE, MEDICAID ==
[2018-04-30] MEDS ORDERED: ISOVUE-370 76%-LOCM 1 ML ONE (10:35)
--- NOTE | 2018-04-30 12:17 | CT ---
CHEST CT WITH CONTRAST: HISTORY: Middle lobe cancer. Status post radiation. Restaging. COMPARISON: 01/28/2018 TECHNIQUE: Post contrast chest CT is performed in the axial plane. Coronal reformatted images are submitted. FINDINGS: The visualized thyroid gland and axilla are unremarkable. Calcified left axillary lymph nodes are no greta. No evidence of lymphadenopathy in either axilla. No mediastinal mass, lymphadenopathy, or hematoma. Nonspecific, nonenlarged paratracheal lymph nodes . Heart size is within normal limits. No significant pericardial fluid. There are coronary artery calcifications. The thoracic aorta and upper abdominal aorta have a normal caliber. No periaortic f at stranding. The portal vein is patent. The visualized solid organs, including the gallbladder, are unremarkable. No lytic or blastic lesions in the off structures. Stable emphysematous changes involving the lung parenchyma, greatest in both upper lobes. There are areas of scarring in the right upper lobe. No suspicious masses in either upper lobe. No suspicious masses in either lower lobe. There is scarring in the middle lobe. There is no abnormal attenuatio n to suggest a spiculated mass or consolidation in the middle lobe. There is scarring in the lingula , unchanged. The 9 mm nodule noted in the left lower lobe is currently absent. IMPRESSION: 1. Resolution of a nodule in the left lower lobe. 2. Stable emphysematous changes. 3. No new masses in the lung parenchyma. POS: [facility]
== END 2018-04-30 09:36 | disposition home or self-care (01) ==
LOC: BICCT 09:35
PROVIDERS: ATTEND Radiology Radiation Oncology
DX: C34.2 Malignant neoplasm of middle lobe, bronchus or lung (principal); Z92.3 Personal history of irradiation
CPT/HCPCS: 71260; 82565

== ENCOUNTER 2018-07-08 05:37 | Emergency (ER) | payer MEDICARE, MEDICAID ==
[2018-07-08] MEDS ORDERED: Azithromycin 250 MG TAB ONE (06:07)
[2018-07-08 06:20] LABS: #Basophils 0.1 thou/uL (0.0-0.2); #Eosinphils 0.1 thou/uL (0.0-0.7); #Monocytes 0.3 thou/uL (0.11-0.59); #Neutrophils 5.5 thou/uL (1.40-6.50); %Eosinophils 1.7 % (0.0-10.0); %Lymphocytes 14.5 % (21.0-51.0); %Monocytes 3.9 % (0.0-10.0); Hemoglobin 10.7 g/dL (12.0-16.0); Mean Corpuscular HGB CONC 31.2 g/dL (32.0-36.0); Mean Corpuscular Hemoglobin 29.7 pg (27.0-31.0); Mean Corpuscular Volume 95.3 fL (78.0-98.0); Mean Platelet Volume 7.8 fL (7.4-10.4); Platelet Count 210 thou/uL (130-400); RBC Distribution Width 12.8 % (11.5-14.5); Red Blood Cell (RBC) Count 3.59 mill/uL (4.20-5.40)
[2018-07-08 06:40] LABS: ALT (SGPT) 25 U/L (8-55); AST (SGOT) 17 U/L (5-34); Albumin 3.8 g/dL (3.4-4.8); Alkaline Phosphatase 96 U/L (40-150); Anion Gap 12 mmol/L (10-20); BUN (Urea Nitrogen) 18 mg/dL (9.8-20.1); Bilirubin, Total 0.4 mg/dL (0.2-1.2); Calc. Creatinine Clearance 0 mL/min (70-130); Calcium 9.5 mg/dL (7.8-10.44); Carbon Dioxide 31 mmol/L (23-31); Chloride 99 mmol/L (98-107); Estimated GFR-MDRD 35; Globulin 2.5 g/dL (2.4-3.5); Glucose 179 mg/dL (80-115); Potassium 4.7 mmol/L (3.5-5.1); Protein, Total 6.3 g/dL (6.0-8.3); Sodium 137 mmol/L (136-145)
--- NOTE | 2018-07-08 08:15 | RAD ---
SINGLE VIEW OF THE CHEST: COMPARISON: 02/24/2018. HISTORY: COPD and shortness of breath. FINDINGS: Single view of the chest shows a normal sized cardiomediastinal silhouette. There is no evidence of c onsolidation, mass, or pleural effusion. Degenerative changes are seen in the spine. IMPRESSION: No evidence of acute cardiopulmonary disease. POS: [facility]
--- NOTE | 2018-07-13 22:05 | EKG ---
Test Reason : Blood Pressure : / mmHG Vent. Rate : 107 BPM Atrial Rate : 107 BPM P-R Int : 206 ms QRS Dur : 088 ms QT Int : 320 ms P-R-T Axes : 059 023 058 degrees QTc Int : 427 ms Sinus tachycardia Otherwise normal ECG Confirmed by FERNANDA MILLIGAN ([id number]), film or videotape editor CORTNEY ROSALES ([id number]) on 07/13/2018 10:04:36 PM Referred By: Confirmed By:FERNANDA MILLIGAN
== END 2018-07-08 07:11 | disposition home or self-care (01) ==
LOC: ERS 05:37
DX: J44.1 Chronic obstructive pulmonary disease with (acute) exacerbation (principal); I25.10 Atherosclerotic heart disease of native coronary artery without angina pectoris; I25.2 Old myocardial infarction; G62.9 Polyneuropathy, unspecified; D50.0 Iron deficiency anemia secondary to blood loss (chronic); E78.5 Hyperlipidemia, unspecified; I10 Essential (primary) hypertension; E11.9 Type 2 diabetes mellitus without complications; F41.9 Anxiety disorder, unspecified; F32.9 Major depressive disorder, single episode, unspecified; Z87.891 Personal history of nicotine dependence; Z79.82 Long term (current) use of aspirin; Z79.84 Long term (current) use of oral hypoglycemic drugs; Z79.899 Other long term (current) drug therapy
CPT/HCPCS: 36415; 71045; 80053; 83880; 84484; 85025; 93005; 94640; 94760; 96360; J7620

== ENCOUNTER 2018-07-12 12:50 | Observation (INO) | payer MEDICARE, MEDICAID ==
[2018-07-12] MEDS ORDERED: Magnesium 2 GM/50 ML BAG (IN WATER) ONE (13:06)
--- NOTE | 2018-07-12 13:14 | RAD ---
FFrontal radiograph chest: 07/12/2018 COMPARISON: 07/08/2018 HISTORY: Dyspnea FINDINGS: Coarse increased linear interstitial density noted in the perihilar regions and both lung b ases, stable. There are bullous changes in bilateral upper lobes, stable as well. Heart and mediastin al contours are unchanged. The osseous structures are stable. IMPRESSION: Stable appearance of the chest as detailed above. Findings most consistent with COPD.
[2018-07-12 13:33] LABS: #Basophils 0.1 thou/uL (0.0-0.2); #Eosinphils 0.1 thou/uL (0.0-0.7); #Lymphocytes 2.1 thou/uL (1.20-3.40); #Monocytes 0.4 thou/uL (0.11-0.59); #Neutrophils 5.2 thou/uL (1.40-6.50); %Basophils 0.9 % (0.0-1.0); %Eosinophils 1.6 % (0.0-10.0); %Lymphocytes 26.2 % (21.0-51.0); %Monocytes 5.6 % (0.0-10.0); %Neutrophils 65.8 % (42.0-75.0); Hemoglobin 10.8 g/dL (12.0-16.0); Mean Corpuscular HGB CONC 31.7 g/dL (32.0-36.0); Mean Corpuscular Hemoglobin 29.9 pg (27.0-31.0); Mean Corpuscular Volume 94.1 fL (78.0-98.0); Mean Platelet Volume 7.7 fL (7.4-10.4); Platelet Count 258 thou/uL (130-400); RBC Distribution Width 13.1 % (11.5-14.5); Red Blood Cell (RBC) Count 3.62 mill/uL (4.20-5.40); White Blood Cell (WBC) Count 7.9 thou/uL (4.8-10.8)
[2018-07-12 13:56] LABS: ALT (SGPT) 24 U/L (8-55); AST (SGOT) 12 U/L (5-34); Alkaline Phosphatase 92 U/L (40-150); BUN (Urea Nitrogen) 20 mg/dL (9.8-20.1); Bilirubin, Total 0.4 mg/dL (0.2-1.2); Calc. Creatinine Clearance 0 mL/min (70-130); Calcium 9.6 mg/dL (7.8-10.44); Estimated GFR-MDRD 43; Glucose 102 mg/dL (80-115)
[2018-07-12 14:05] LABS: Anion Gap 13 mmol/L (10-20); Carbon Dioxide 35 mmol/L (23-31); Chloride 100 mmol/L (98-107); Potassium 4.4 mmol/L (3.5-5.1); Sodium 144 mmol/L (136-145)
[2018-07-12] MEDS ORDERED: Ondansetron ODT 4 MG TAB SL PRN (15:53)
[2018-07-12] MEDS ORDERED: Ondansetron PF 4 MG/2 ML Vial IVP PRN (15:53)
[2018-07-12] MEDS ORDERED: Acetaminophen 325 MG TAB PO PRN ×2 (15:53→16:57)
[2018-07-12 15:58] VITALS: BMI 31.7
[2018-07-12] MEDS ORDERED: Senokot S 8.6-50 MG TAB PO PRN (16:57)
[2018-07-12] MEDS ORDERED: Bacteriostatic Water 30 ML VIAL FS PRN (17:10)
[2018-07-12] MEDS: methylPREDNISolone Sod Succ/PF 125 MG/2 ML VIAL IVP SCH (17:32)
[2018-07-12] MEDS: Famotidine 20 MG TAB PO SCH (20:19)
[2018-07-12] MEDS ORDERED: Diabetic Tussin 200 MG/10 ML UDCUP PO PRN (23:53)
[2018-07-12] MEDS ORDERED: Metoclopramide HCl 10 MG TAB PO PRN (23:53)
[2018-07-12] MEDS ORDERED: Dextrose 5% in Water 1,000 ML IV PRN (23:57)
[2018-07-12] MEDS ORDERED: Dextrose 50% Abboject 50 ML SYRINGE SLOW IVP PRN (23:57)
[2018-07-13] MEDS ORDERED: ALPRAZolam 0.25 MG TAB PO SCH (00:15)
[2018-07-13] MEDS ORDERED: traZODone HCl 50 MG TAB PO SCH ×2 (00:30→21:00)
--- NOTE | 2018-07-13 04:53 | HP ---
PRIMARY CARE PHYSICIAN: Dr. Sommers. Note Sound team is covering for him. CHIEF COMPLAINT: Shortness of breath. HISTORY OF PRESENT ILLNESS: Ms. Mahoney is a 68-year-old female who reported to the emergency room via EMS for shortness of breath, COPD exacerbation. She was recently seen in this ER, was diagnosed with same, put on some prednisone short course and a Z-Fredo. The patient reports that she finished all her medication yesterday, but does not feel like she is improving. Reports her shortness of breath is mostly with ambulation. Reports some cough, but denies any foreign exchange student coordinator time with her cough. She denies any fever, chest pain, nausea, vomiting, diarrhea, or a rash. She reports that her green chain offbearer is Dr. Bowman, but reports that Dr. Moncada told her to come to the emergency room for evaluation. PAST MEDICAL HISTORY: Includes: 1. COPD. 2. She had an LA in 2012. 3. History of colon cancer. 4. Lung cancer, last radiation treatment was in June of 2017. 5. Iron deficiency anemia. 6. Polyneuropathy. GERD. 1. Diabetes type 2. 2. Hyperlipidemia. 3. Hypertension. The patient was given a DuoNeb and a magnesium treatment while in the emergency room. She reports that she does feel better, although when she is resting, she says that she generally feels better. It is when she gets up and walks any distance that she gets short of breath and has to sit down. She did have a stress test in February of 2018, which showed a normal stress with ejection fraction of 70%. She does endorse several admissions for COPD exacerbation. She was admitted to the observation unit for continued management. PAST MEDICAL HISTORY: Pertinent for hypertension, diabetes type 2. coronary artery disease, COPD, chronic respiratory failure with oxygen dependence, dyslipidemia, anxiety and depression, GERD. She has had a history of ischemic cardiomyopathy with an ejection of 25%, but on her last stress test in February 2018 showed an EF of 70%. PAST SURGICAL HISTORY: Status post cardiac stent placement post angioplasty of lower extremities, status post colon resection, status post surgery for ectopic x2. FAMILY HISTORY: None pertinent. SOCIAL HISTORY: The patient is a resident of the [facility]. No history of alcohol intake. She did report a smoking history, but stopped some 10 years ago. ALLERGIES: INCLUDE CIPROFLOXACIN AND NAPROXEN. HOME MEDICATIONS: Include: 1. Tylenol 1 tablet 650 mg p.o. q.4 hours as needed. 2. Xanax 0.25 mg p.o. b.i.d. 3. Aspirin 81 mg p.o. daily. 4. Ferrous sulfate 325 mg p.o. b.i.d. 5. Flonase 1 spray each nares daily. 6. Breo Ellipta 100 mcg/25 mcg 1 inhalation daily. 7. Guaifenesin 200 mg p.o. q.4 hours as needed. 8. DuoNeb q.2 hour p.r.n. 9. Claritin 10 mg p.o. daily. 10. Magnesium 200 mg p.o. b.i.d. 11. Milk of magnesia 30 mL p.o. daily. 12. Metformin 500 mg p.o. b.i.d. 13. Reglan 10 mg p.o. q.6 hours as needed. 14. Multivitamin 1 tablet p.o. daily. 15. Nitrostat 0.4 sublingual q.5 minutes as needed for chest pain. 16. MiraLAX 17 g p.o. daily. 17. Promethazine 25 mg p.o. q.6 hours as needed. 18. Senokot S 1 tab p.o. q.12 hours. 19. Trazodone 50 mg p.o. at bedtime. 20. Incruse 1 inhalation daily. 21. Zantac 150 mg p.o. b.i.d. 22. Lipitor 40 mg p.o. at bedtime. 23. Lisinopril 10 mg p.o. daily. 24. Lopressor 12.5 mg p.o. b.i.d. REVIEW OF SYSTEMS: CONSTITUTIONAL: The patient denies chills or fever. EYES: Denies any eye pain or any vision changes. ENT: Denies sore throat or rhinorrhea. CARDIOVASCULAR: Denies chest pain or palpitations. RESPIRATORY: Does report cough. Does report shortness of breath. Does report dyspnea on exertion. GI: Denies abdominal pain. Denies nausea, vomiting, diarrhea. MUSCULOSKELETAL: Denies any falls, injury. SKIN: Denies any rash or skin changes. NEUROLOGIC: Denies a headache. Denies any focal weakness, numbness, tingling. ENDOCRINE: Denies any changes. Notes all other systems are negative and reviewed unless mentioned in the HPI. PHYSICAL EXAMINATION: VITAL SIGNS: Temperature is 97.8, pulse is 84, respirations are 20, pO2 is 97% on 2.5 L nasal cannula, blood pressure is 145/65. CONSTITUTIONAL: The patient appears nontoxic, is alert and oriented to person, place, and time. She is in no apparent distress. Sitting up, eating her dinner. HEENT: Head is atraumatic and normocephalic. Eyes, pupils are equally round and reactive to light. Extraocular muscles are intact. ENT, mouth exam is normal. Mucous membranes are moist. NECK: Normal range of motion. Trachea is midline. RESPIRATORY: Breath sounds are diminished in the bases. Chest movement is symmetrical. CARDIOVASCULAR: Heart sounds are normal. Heart rate regular rate and rhythm. ABDOMEN: Nontender. Bowel sounds are heard. BACK: Normal range of motion. No CVA tenderness. Upper extremity normal inspection, normal range of motion. Lower extremity, normal inspection, normal range of motion. NEUROLOGIC: The patient is oriented to person, place, and time. Speech is normal. There is no focal motor or sensory deficits. SKIN: Warm, dry, normal in color. PSYCHIATRIC: The patient has a normal affect. IMAGING: EKG interpretation in the ER shows beats per minute 72 with a normal sinus rhythm, conduction, first-degree AV block, ST segments normal, T-waves normal, axis is normal. PERTINENT LABORATORY DATA: White blood cell count is 7.9, hemoglobin is 10.8, hematocrit is 34. D-dimer is 0.32. Chemistry: Sodium is 144, potassium is 4.4, chloride is 100, carbon dioxide is 35, gap is 13, BUN is 20, creatinine is 1.23, estimated GFR is 43, glucose is 102, calcium is 9.6, bilirubin is 0.4. Liver enzymes are unremarkable. Troponin x1 is undetectable. IMAGING: Chest x-ray shows a stable appearance of the chest, findings most consistent with COPD. ASSESSMENT AND PLAN: 1. Chronic obstructive pulmonary disease exacerbation. We are going to do DuoNebs q.4 hours while awake. Solu-Medrol 40 mg IV q.12 and recheck her magnesium level in the morning. May consider repeat magnesium IV piggyback. If the patient does not feel less short of breath tomorrow after continued nebs and steroid treatments, we will consider pulmonary consult. 2. Diabetes type 2. We will restart home medications. We will start a sliding scale. For any needs here, we will check blood sugar before meals and at bedtime. 3. Hypertension. We will continue home medications. We will trend. 4. Hyperlipidemia. We will restart home medications. 5. Gastrointestinal and deep venous thrombosis prophylaxis will be initiated. 6. The patient plan discussed with Dr. Hernández, who agrees. 7. Hospital course will be dependent on clinical findings. Job ID: [id number]
[2018-07-13 05:07] LABS: #Eosinphils 0.1 thou/uL (0.0-0.7); #Lymphocytes 0.8 thou/uL (1.20-3.40); #Monocytes 0.2 thou/uL (0.11-0.59); #Neutrophils 6.3 thou/uL (1.40-6.50); %Eosinophils 0.7 % (0.0-10.0); %Lymphocytes 10.9 % (21.0-51.0); %Monocytes 2.9 % (0.0-10.0); %Neutrophils 85.5 % (42.0-75.0); Hemoglobin 10.2 g/dL (12.0-16.0); Mean Corpuscular HGB CONC 31.7 g/dL (32.0-36.0); Mean Corpuscular Hemoglobin 30.2 pg (27.0-31.0); Mean Corpuscular Volume 95.4 fL (78.0-98.0); Mean Platelet Volume 7.8 fL (7.4-10.4); Platelet Count 243 thou/uL (130-400); Red Blood Cell (RBC) Count 3.39 mill/uL (4.20-5.40); White Blood Cell (WBC) Count 7.4 thou/uL (4.8-10.8)
[2018-07-13] MEDS: methylPREDNISolone Sod Succ/PF 125 MG/2 ML VIAL IVP SCH (05:11)
[2018-07-13 05:23] LABS: ALT (SGPT) 26 U/L (8-55); AST (SGOT) 13 U/L (5-34); Albumin 3.6 g/dL (3.4-4.8); Alkaline Phosphatase 81 U/L (40-150); Anion Gap 14 mmol/L (10-20); BUN (Urea Nitrogen) 23 mg/dL (9.8-20.1); Bilirubin, Total 0.3 mg/dL (0.2-1.2); Calc. Creatinine Clearance 66 mL/min (70-130); Carbon Dioxide 33 mmol/L (23-31); Chloride 100 mmol/L (98-107); Estimated GFR-MDRD 48; Globulin 2.2 g/dL (2.4-3.5); Glucose 183 mg/dL (80-115); Magnesium 2.4 mg/dL (1.6-2.6); Potassium 4.6 mmol/L (3.5-5.1); Protein, Total 5.8 g/dL (6.0-8.3); Sodium 142 mmol/L (136-145)
[2018-07-13] MEDS: HumaLOG 300 UNITS/3 ML VIAL SC PRN ×3 (05:57→17:13)
[2018-07-13] MEDS: Famotidine 20 MG TAB PO SCH ×2 (08:09→20:43)
[2018-07-13] MEDS: Ferrous Sulfate 325 MG TAB PO SCH ×2 (08:09→17:56)
[2018-07-13] MEDS: Metoprolol Tartrate 25 MG TAB PO SCH ×2 (08:12→20:44)
[2018-07-13] MEDS: Loratadine 10 MG TAB PO SCH (08:12)
[2018-07-13] MEDS: Lisinopril 10 MG TAB PO SCH (08:12)
[2018-07-13] MEDS: metFORMIN 500 MG TAB PO SCH ×2 (08:13→17:56)
[2018-07-13] MEDS ORDERED: Aspirin 325 mg Enteric Coated Tablet ONE (08:16)
[2018-07-13] MEDS: Aspirin 81 mg Enteric Coated Tablet PO SCH (08:26)
[2018-07-13] MEDS: ALPRAZolam 0.25 MG TAB PO SCH ×2 (08:52→21:13)
[2018-07-13] MEDS ORDERED: Prevnar 13-Val Conj/PF 0.5 ML SYRINGE IM ONE (09:00)
[2018-07-13] MEDS ORDERED: Furosemide 40 MG TAB PO SCH (10:45)
[2018-07-13 10:54] LABS: Troponin I 0.015 ng/mL (< 0.028)
--- NOTE | 2018-07-13 14:53 | PDOC.PN ---
- Subjective Encounter Start Date: 07/13/18 Encounter Start Time: 14:51 Subjective: admitted with worsening SOB. -: reported some improvement. No fever, Chest pain, or palpitation. - Objective Resuscitation Status - Order Detail: 07/12/18 16:57 Resuscitation Status Routine Co-Sign Provider: Resuscitation Status: FULL: Full Resuscitation Discussed with: patient Additional comments: Patient's son or sister will be surrogate decision maker Vital Signs & Weight: Vital Signs (12 hours) Temp Pulse Resp BP BP BP BP 07/13/18 13:45 07/13/18 12:53 169/81 H 07/13/18 12:00 98.2 F 87 20 173/77 H 07/13/18 10:48 77 16 07/13/18 08:12 135/63 07/13/18 08:00 97.8 F 81 20 135/63 07/13/18 06:53 80 16 07/13/18 04:00 97.6 F 76 20 126/60 BP Pulse Ox 07/13/18 13:45 134/62 07/13/18 12:53 07/13/18 12:00 94 L 07/13/18 10:48 07/13/18 08:12 07/13/18 08:00 97 07/13/18 06:53 97 07/13/18 04:00 95 Weight Weight 196 lb 8 oz I&O: 07/12/18 07/13/18 07/14/18 06:59 06:59 06:59 Intake Total 750 240 Balance 750 240 Result Diagrams: 07/13/18 04:22 07/13/18 04:22 Additional Labs: Accuchecks 07/13/18 07/13/18 10:29 00:12 POC Glucose 187 H 263 H Phys Exam - Physical Examination Constitutional: NAD obese HEENT: PERRLA, moist MMs Neck: supple fair air movement. No obvious rhonchi or crackles Cardiovascular: RRR Gastrointestinal: no distention, positive bowel sounds mild bilateral leg edema Neurological: non-focal, moves all 4 limbs Psychiatric: A&O x 3 Dx/Plan (1) COPD exacerbation Code(s): J44.1 - CHRONIC OBSTRUCTIVE PULMONARY DISEASE W (ACUTE) EXACERBATION Status: Acute (2) CAD (coronary artery disease) Code(s): I25.10 - ATHSCL HEART DISEASE OF [place] CORONARY ARTERY W/O ANG PCTRS Status: Chronic (3) Chronic respiratory failure with hypoxia Code(s): J96.11 - CHRONIC RESPIRATORY FAILURE WITH HYPOXIA Status: Chronic Comment: Continue O2 supplementation, baseline respiratory status (4) Dyslipidemia Code(s): E78.5 - HYPERLIPIDEMIA, UNSPECIFIED Status: Chronic (5) Hypertension Code(s): I10 - ESSENTIAL (PRIMARY) HYPERTENSION Status: Chronic Comment: Uncontrolled after apparent d/c of all prior antihypertensives, start Lisinopril 10mg daily and Metoprolol 12.5mg BID, titrate BP regimen to clinical response (6) Type 2 diabetes mellitus Status: Chronic Comment: ISS, Metformin (7) Acute on chronic diastolic (congestive) heart failure Code(s): I50.33 - ACUTE ON CHRONIC DIASTOLIC (CONGESTIVE) HEART FAILURE Status : Acute - Plan Start low dose lasix. -: Continue bronchodilators, steroid and oxygen supplementation. -: Change steroid to oral. Monitor renal function. -: Possible discharge tomorrow -: Continue glycemic management. * .
[2018-07-13] MEDS: predniSONE 20 MG TAB PO SCH (20:42)
[2018-07-13] MEDS ORDERED: Atorvastatin Calcium 40 MG TAB PO SCH (21:00)
[2018-07-13] MEDS ORDERED: TRAZODONE 50 MG PO SCH (21:00)
[2018-07-14 05:35] LABS: #Monocytes 0.3 thou/uL (0.11-0.59); #Neutrophils 7.9 thou/uL (1.40-6.50); %Basophils 0.3 % (0.0-1.0); %Eosinophils 0.4 % (0.0-10.0); %Lymphocytes 11.1 % (21.0-51.0); %Monocytes 3.2 % (0.0-10.0); %Neutrophils 85.1 % (42.0-75.0); Hemoglobin 10.8 g/dL (12.0-16.0); Mean Corpuscular Hemoglobin 30.2 pg (27.0-31.0); Mean Corpuscular Volume 94.5 fL (78.0-98.0); Mean Platelet Volume 7.7 fL (7.4-10.4); Platelet Count 245 thou/uL (130-400); RBC Distribution Width 13.2 % (11.5-14.5); Red Blood Cell (RBC) Count 3.58 mill/uL (4.20-5.40); White Blood Cell (WBC) Count 9.3 thou/uL (4.8-10.8)
[2018-07-14 05:58] LABS: ALT (SGPT) 27 U/L (8-55); AST (SGOT) 11 U/L (5-34); Albumin 3.9 g/dL (3.4-4.8); Alkaline Phosphatase 80 U/L (40-150); BUN (Urea Nitrogen) 31 mg/dL (9.8-20.1); Bilirubin, Total 0.4 mg/dL (0.2-1.2); Calc. Creatinine Clearance 51 mL/min (70-130); Calcium 9.6 mg/dL (7.8-10.44); Estimated GFR-MDRD 36; Globulin 2.3 g/dL (2.4-3.5); Glucose 179 mg/dL (80-115); Protein, Total 6.2 g/dL (6.0-8.3)
[2018-07-14 06:06] LABS: Anion Gap 16 mmol/L (10-20); Carbon Dioxide 34 mmol/L (23-31); Chloride 97 mmol/L (98-107); Potassium 4.7 mmol/L (3.5-5.1); Sodium 142 mmol/L (136-145)
[2018-07-14 08:20] VITALS: BP 168/74
[2018-07-14] MEDS: Famotidine 20 MG TAB PO SCH (09:07)
[2018-07-14] MEDS: predniSONE 20 MG TAB PO SCH (09:07)
[2018-07-14] MEDS: Ferrous Sulfate 325 MG TAB PO SCH (09:07)
[2018-07-14] MEDS: ALPRAZolam 0.25 MG TAB PO SCH (09:07)
[2018-07-14] MEDS: Metoprolol Tartrate 25 MG TAB PO SCH (09:07)
[2018-07-14] MEDS: Lisinopril 10 MG TAB PO SCH (09:08)
[2018-07-14] MEDS: Loratadine 10 MG TAB PO SCH (09:08)
[2018-07-14] MEDS: metFORMIN 500 MG TAB PO SCH (09:08)
[2018-07-14] MEDS: Aspirin 81 mg Enteric Coated Tablet PO SCH (09:08)
[2018-07-14] MEDS ORDERED: Lisinopril 10 MG TAB PO SCH (09:15)
--- NOTE | 2018-07-14 10:06 | DIS ---
DATE OF ADMISSION: 07/12/2018 DATE OF DISCHARGE: 07/14/2018 DISCHARGE DIAGNOSES: 1. Acute respiratory insufficiency. 2. Chronic obstructive pulmonary disease exacerbation. 3. Acute on chronic diastolic heart failure. 4. Chronic respiratory failure with hypoxia. 5. Hypertension. 6. Type 2 diabetes mellitus. 7. History of coronary artery disease. 8. Chronic kidney disease stage 3. CONSULTS: None. HOSPITAL COURSE: The patient is a 68-year-old female, retirement resident with known history of chronic respiratory failure on home oxygen due to COPD, who was admitted due to acute onset of respiratory insufficiency. The patient was noted to have some crackles and rhonchi, but however, oxygen saturation was normal. Impression of COPD was made with acute exacerbation, hence the patient was treated with bronchodilators, steroid with some improvement. Oxygen requirement remained stable. Of note, the patient was recently seen in the ED and was treated with Z-Fredo and Medrol Dosepak. The patient also was found to have mild bilateral leg edema suggestive of fluid overload, hence was treated with a dose of diuretics with improvement. She also was noted to have uncontrolled high blood pressure, hence lisinopril was increased from 10 mg daily to 20 mg daily. The patient's weight decreased from 196 to 192. She remained stable and was subsequently discharged back to the retirement. The patient remained afebrile and denied chest pain during this hospitalization. PHYSICAL EXAMINATION: VITAL SIGNS: Temperature 98.1, pulse 84, respiratory rate 20, SpO2 of 96% on 2 L nasal cannula, blood pressure 141/64. GENERAL: Elderly female, in no obvious distress. Afebrile, anicteric, acyanotic. HEENT: Normocephalic, atraumatic. Pupils are equal and reacting to light. Oral mucosa is moist. CARDIOVASCULAR: Regular rhythm and rate with normal heart sounds 1 and 2. RESPIRATORY: Fair air entry with no obvious crackle or rhonchi or use of accessory muscles. GI: Abdomen is full, soft, nontender, nondistended with normal bowel sounds. EXTREMITIES: Grossly normal looking, atraumatic with no edema, erythema, or cyanosis. NEUROLOGIC: Conscious, alert, and oriented x3 with appropriate mental status. The patient is ambulant. DISCHARGE CONDITION: Improved. DISCHARGE MEDICATIONS: 1. Nitroglycerin 0.4 mg q.5 p.r.n. for chest pain. 2. Sennoside-docusate one tablet b.i.d. 3. Xanax 0.25 mg p.o. b.i.d. 4. Aspirin 81 mg p.o. daily. 5. Ferrous sulfate 325 mg p.o. b.i.d. 6. Fluticasone propionate/Flonase 1 spray to each nostrils. 7. Fluticasone-vilanterol (Breo) one inhalation daily. 8. Ipratropium-albuterol sulfate nebulization q.i.d. 9. Loratadine 10 mg daily. 10. Magnesium 250 mg p.o. b.i.d. 11. Metformin 500 mg p.o. b.i.d. 12. Multivitamin one tablet daily. 13. MiraLAX 17 g daily. 14. Trazodone 50 mg p.o. at bedtime. 15. Umeclidinium bromide one inhalation daily. 16. Zantac 150 mg p.o. b.i.d. 17. Furosemide 20 mg every other day. 18. Lipitor 40 mg daily at bedtime. 19. Lisinopril 20 mg daily. 20. Metoprolol 12.5 mg b.i.d. 21. Prednisone tapering course. 22. Albuterol-ipratropium nebulization every 2 hours p.r.n. for shortness of breath. 23. Acetaminophen 650 mg every 4 hours p.r.n. for pain. 24. Guaifenesin 200 mg p.o. every 4 hours p.r.n. 25. Reglan 10 mg q.6 hours. 26. Promethazine 25 mg q.6 p.r.n. 27. Milk of magnesia 30 mL p.o. daily as needed. 28. Menthol Biofreeze gel one application topical as needed. FOLLOWUP: The patient is to have a BMP on July 17 to check renal function given increase in lisinopril and commencement of diuretics. Result is to be called to the primary care physician or the facility physician. This discharge took about 33 minutes. Job ID: [id number]
[2018-07-14 12:23] VITALS: TEMP 97.4
== END 2018-07-14 12:48 ==
LOC: ERS 12:50 → 2SW 14:21
PROVIDERS: ADMIT Internal Medicine; ATTEND Internal Medicine
DX: J44.1 Chronic obstructive pulmonary disease with (acute) exacerbation (principal); I25.2 Old myocardial infarction; D50.9 Iron deficiency anemia, unspecified; E11.42 Type 2 diabetes mellitus with diabetic polyneuropathy; K21.9 Gastro-esophageal reflux disease without esophagitis; E78.5 Hyperlipidemia, unspecified; F41.9 Anxiety disorder, unspecified; F32.9 Major depressive disorder, single episode, unspecified; I25.5 Ischemic cardiomyopathy; I25.10 Atherosclerotic heart disease of native coronary artery without angina pectoris; J96.11 Chronic respiratory failure with hypoxia; I13.0 Hypertensive heart and chronic kidney disease with heart failure and stage 1 through stage 4 chronic kidney disease, or unspecified chronic kidney disease; E11.22 Type 2 diabetes mellitus with diabetic chronic kidney disease; N18.3 Chronic kidney disease, stage 3 (moderate); I50.33 Acute on chronic diastolic (congestive) heart failure; E66.9 Obesity, unspecified; Z68.31 Body mass index [BMI] 31.0-31.9, adult; Z99.81 Dependence on supplemental oxygen; Z85.038 Personal history of other malignant neoplasm of large intestine; Z85.118 Personal history of other malignant neoplasm of bronchus and lung; Z87.891 Personal history of nicotine dependence; Z79.82 Long term (current) use of aspirin; Z79.84 Long term (current) use of oral hypoglycemic drugs; Z79.899 Other long term (current) drug therapy; Z88.1 Allergy status to other antibiotic agents; Z88.6 Allergy status to analgesic agent; Z95.5 Presence of coronary angioplasty implant and graft; Z90.49 Acquired absence of other specified parts of digestive tract
CPT/HCPCS: 71045; 80053 ×3; 82962 ×2; 83735; 83880; 84484 ×2; 85025 ×3; 85379; 93005; 94640 ×4; 94760; 96374; 96375; 96376; 97139 ×2; 99285; G0378; 36415; 36416; J2930; J3475; J7620

== ENCOUNTER 2018-08-10 21:26 | Emergency (ER) | payer MEDICARE, MEDICAID ==
--- NOTE | 2018-08-10 21:58 | RAD ---
PORTABLE CHEST: 08/10/18 INDICATIONS: Shortness of breath, chest pain. Lung black are clear of infiltrate. Heart size is within normal range. Vasculature normal. Interstit ial prominence in the basis is stable. IMPRESSION: No acute finding. No change from prior exam of 07/08/18. POS: [facility]
[2018-08-10 22:12] LABS: #Eosinphils 0.1 thou/uL (0.0-0.7); #Lymphocytes 1.1 thou/uL (1.20-3.40); #Monocytes 0.7 thou/uL (0.11-0.59); #Neutrophils 6.8 thou/uL (1.40-6.50); %Basophils 0.5 % (0.0-1.0); %Eosinophils 1.2 % (0.0-10.0); %Lymphocytes 12.4 % (21.0-51.0); %Monocytes 7.6 % (0.0-10.0); %Neutrophils 78.3 % (42.0-75.0); Hemoglobin 10.3 g/dL (12.0-16.0); Mean Corpuscular Hemoglobin 30.4 pg (27.0-31.0); Mean Corpuscular Volume 95.1 fL (78.0-98.0); Mean Platelet Volume 7.8 fL (7.4-10.4); Platelet Count 200 thou/uL (130-400); RBC Distribution Width 13.3 % (11.5-14.5); White Blood Cell (WBC) Count 8.7 thou/uL (4.8-10.8)
[2018-08-10 22:35] LABS: Albumin 3.9 g/dL (3.4-4.8)
[2018-08-10 22:36] LABS: Calcium 9.3 mg/dL (7.8-10.44); Chloride 97 mmol/L (98-107); Potassium 4.4 mmol/L (3.5-5.1); Sodium 139 mmol/L (136-145)
[2018-08-10 22:37] LABS: Globulin 2.1 g/dL (2.4-3.5); Glucose 144 mg/dL (80-115)
[2018-08-10 22:38] LABS: Carbon Dioxide 34 mmol/L (23-31)
[2018-08-10 22:39] LABS: Bilirubin, Total 0.7 mg/dL (0.2-1.2)
[2018-08-10 22:40] LABS: Alkaline Phosphatase 95 U/L (40-150); Calc. Creatinine Clearance 0 mL/min (70-130); Estimated GFR-MDRD 36
[2018-08-10 22:41] LABS: BUN (Urea Nitrogen) 17 mg/dL (9.8-20.1)
[2018-08-10 22:42] LABS: AST (SGOT) 17 U/L (5-34)
[2018-08-10 22:43] LABS: ALT (SGPT) 33 U/L (8-55)
[2018-08-10] MEDS ORDERED: Albuterol Sulfate 2.5 mg/0.5 ml Neb ONE (22:54)
[2018-08-10] MEDS ORDERED: Albuterol Sulfate 2.5 mg/3 ml Neb ONE (22:54)
[2018-08-10 23:08] LABS: Anion Gap 12 mmol/L (10-20)
== END 2018-08-10 23:58 | disposition home or self-care (01) ==
LOC: ERS 21:26
DX: J44.1 Chronic obstructive pulmonary disease with (acute) exacerbation (principal); I25.2 Old myocardial infarction; I25.10 Atherosclerotic heart disease of native coronary artery without angina pectoris; D50.9 Iron deficiency anemia, unspecified; K21.9 Gastro-esophageal reflux disease without esophagitis; E11.9 Type 2 diabetes mellitus without complications; E78.5 Hyperlipidemia, unspecified; E11.42 Type 2 diabetes mellitus with diabetic polyneuropathy; I10 Essential (primary) hypertension; F41.9 Anxiety disorder, unspecified; F32.9 Major depressive disorder, single episode, unspecified; Z87.891 Personal history of nicotine dependence; Z79.82 Long term (current) use of aspirin; Z79.84 Long term (current) use of oral hypoglycemic drugs; Z79.899 Other long term (current) drug therapy
CPT/HCPCS: 36415; 71045; 80053; 83880; 84484; 85025; 93005; 94640; 94760; J7611

== ENCOUNTER 2018-08-16 22:28 | Inpatient (IN) | payer MEDICARE, MEDICAID ==
--- NOTE | 2018-08-16 23:06 | RAD ---
Portable frontal chest radiograph: 08/16/2018 COMPARISON: 08/10/2018 HISTORY: COPD, emphysema FINDINGS: Bullous changes are noted in bilateral lung apices, consistent with the provided history of COPD. There is increased density in both lung bases, right greater than left, worsened since the prior exam. Findings may be related to edema, infectious pneumonitis, and/or aspiration. Recommend fo llow-up imaging of the chest following treatment to document resolution. IMPRESSION: Worsening aeration in both lung bases as detailed above.
[2018-08-16 23:10] LABS: Hemoglobin 10.5 g/dL (12.0-16.0); Mean Corpuscular Hemoglobin 28.1 pg (27.0-31.0); Mean Corpuscular Volume 95.6 fL (78.0-98.0); Mean Platelet Volume 7.2 fL (7.4-10.4); Platelet Count 351 thou/uL (130-400); RBC Distribution Width 13.3 % (11.5-14.5); Red Blood Cell (RBC) Count 3.75 mill/uL (4.20-5.40)
[2018-08-16 23:11] LABS: #Eosinphils 0.2 thou/uL (0.0-0.7); #Lymphocytes 1.6 thou/uL (1.20-3.40); #Monocytes 1.4 thou/uL (0.11-0.59); #Neutrophils 9.8 thou/uL (1.40-6.50); %Basophils 0.4 % (0.0-1.0); %Eosinophils 1.3 % (0.0-10.0); %Lymphocytes 12.1 % (21.0-51.0); %Monocytes 10.8 % (0.0-10.0); %Neutrophils 75.4 % (42.0-75.0)
[2018-08-16 23:24] LABS: ALT (SGPT) 109 U/L (8-55); AST (SGOT) 42 U/L (5-34); Albumin 3.9 g/dL (3.4-4.8); Alkaline Phosphatase 159 U/L (40-150); Anion Gap 12 mmol/L (10-20); BUN (Urea Nitrogen) 21 mg/dL (9.8-20.1); Bilirubin, Total 0.9 mg/dL (0.2-1.2); Calc. Creatinine Clearance 0 mL/min (70-130); Calcium 10.1 mg/dL (7.8-10.44); Carbon Dioxide 36 mmol/L (23-31); Chloride 92 mmol/L (98-107); Estimated GFR-MDRD 31; Globulin 3.4 g/dL (2.4-3.5); Glucose 116 mg/dL (80-115); Potassium 4.1 mmol/L (3.5-5.1); Protein, Total 7.3 g/dL (6.0-8.3); Sodium 136 mmol/L (136-145)
[2018-08-16] MEDS ORDERED: Acetaminophen 500 MG TAB ONE (23:35)
[2018-08-16] MEDS ORDERED: methylPREDNISolone Sod Succ/PF 125 MG/2 ML VIAL ONE (23:35)
[2018-08-16] MEDS ORDERED: Cefepime 2 GM VIAL ONE (23:35)
[2018-08-16] MEDS ORDERED: Azithromycin 500 MG VIAL ONE (23:35)
[2018-08-16 23:36] LABS: Mean Corpuscular HGB CONC 29.4 g/dL (32.0-36.0)
[2018-08-17] MEDS ORDERED: Albuterol Sulfate 2.5 mg/3 ml Neb ONE ×3 (00:03→01:29)
[2018-08-17 00:34] LABS: Actual Bicarbonate (HCO3a) 29.4 mEq/L (22-28); Analyzer IN Cardio ER; Base Excess (BEa) 3.8 mEq/L (-2.0 to +3.0); CO2 Tension 49.2 mmHg (35.0-45.0); Calcium, Ionized 1.12 mmol/L (1.12-1.30); Carboxyhemoglobin (COHb) 0.2 gm% (0.0-3.0); O2 Tension (PaO2) 75.2 mmHg (> 70.0); Potassium - ABG Lab 3.94 mmol/L (3.70-5.30); pH, Arterial 7.39 (7.35-7.45)
[2018-08-17 00:36] LABS: Puncture Site LRA
[2018-08-17 02:28] LABS: Troponin I 0.013 ng/mL (< 0.028)
[2018-08-17 03:43] LABS: Bilirubin Negative (Negative); Blood, Urine Negative (Negative); Clarity CLEAR (Clear); Glucose, Urine (Dipstick) Negative (Negative); Leukocyte Trace (Negative); Nitrite Negative (Negative); Protein, Urine (Dipstick) Trace mg/dL (Neg-Trace); Specific Gravity, Urine 1.017 (1.002-1.036); Urobilinogen 0.2 mg/dL (0.2-1.0)
[2018-08-17 03:45] LABS: Bacteria/HPF None Seen HPF (None Seen); Hyaline Casts/LPF 4-6 HYALINE CAST LPF (0-3 Hyaline); Pathc Cast-AUWi Flag 0.95 (0-2.49); RBC/HPF 0-3 HPF (0-3); WBC/HPF 0-3 HPF (0-3)
[2018-08-17] MEDS ORDERED: Ondansetron PF 4 MG/2 ML Vial IVP PRN ×2 (03:53→04:55)
[2018-08-17] MEDS ORDERED: Ondansetron ODT 4 MG TAB SL PRN (03:53)
[2018-08-17] MEDS ORDERED: Sodium Chloride 0.9% 1,000 ML IV SCH (03:53)
[2018-08-17] MEDS ORDERED: Albuterol Sulfate 2.5 mg/3 ml Neb NEB PRN (03:54)
--- NOTE | 2018-08-17 04:29 | HP ---
PRIMARY CARE PHYSICIAN: Dr. Sommers. CHIEF COMPLAINT: "I have been short of breath for 2 days." HISTORY OF PRESENT ILLNESS: Ms. Mahoney is a pleasant 68-year-old female who has a history of chronic respiratory failure due to COPD with hypoxemia. She is on home oxygen. She was recently discharged from the hospital back in June for an acute exacerbation of her COPD. She says that she is always pretty much short of breath, but in the last couple of days she has gotten progressively more short of breath. She says she has been coughing. It has been primarily dry, but occasionally she has coughed up some "red stuff." She has a hurting or pain in the right side of her back, primarily when she is breathing or coughing as well as the mid chest. She had a high fever up to 102 earlier today as well as wheezing. She denies having any nausea, vomiting; however no abdominal pain. No increased leg swelling. No PND. No orthopnea. Due to her symptoms as well as a high fever, she came to the ER for evaluation and she is being admitted for an [id number] respiratory failure and possible pneumonia. REVIEW OF SYSTEMS: All systems were reviewed and are negative except for that mentioned in the history of present illness. PAST MEDICAL HISTORY: Significant for chronic respiratory failure due to COPD on home oxygen. She is on 3 L. She has diabetes mellitus, chronic diastolic heart failure, coronary artery disease with an HI in 2012, has a history of colon cancer as well as lung cancer, iron deficiency, gastroesophageal reflux disease, polyneuropathy, hypertension, and hyperlipidemia. PAST SURGICAL HISTORY: She has had a heart stent placed, colon resection, as well as an ectopic . ALLERGIES: ALEVE AND CIPRO. SOCIAL HISTORY: She resides at the [facility] in [place]. She is , has 2 children. Her son, Artemio Vail is her surrogate decision maker. She would like to be a full code. She is a former smoker. She quit 10 years ago and she smoked about a pack a day for 40 years. Denies any alcohol use. FAMILY HISTORY: Significant for cancer. CURRENT MEDICATIONS: She says they are the same as when she was discharged a month ago and these include: 1. Nitroglycerin sublingual. 2. Xanax 0.25 mg twice daily. 3. Iron 325 mg twice daily. 4. Aspirin 81 mg daily. 5. Fluticasone nasal spray. 6. DuoNebs q.i.d. 7. Loratadine 10 mg daily. 8. Magnesium sulfate 250 mg twice daily. 9. Metformin 500 mg twice daily. 10. Multivitamin once daily. 11. MiraLAX 17 g daily. 12. Trazodone 50 mg at bedtime. 13. Zantac 150 mg twice daily. 14. Furosemide 20 mg every other day. 15. Lipitor 40 mg at bedtime. 16. Lisinopril 20 mg daily. 17. Metoprolol 12.5 mg twice daily. 18. Prednisone taper. 19. Acetaminophen 650 mg q.4 hours as needed. 20. Guaifenesin 200 mg q.4. 21. Reglan 10 mg q.6. 22. Promethazine 25 mg q.6. 23. Milk of magnesia as needed. PHYSICAL EXAMINATION: GENERAL: She is alert and oriented. She appears to be in some mild distress due to dyspnea. She is well developed and well nourished. VITAL SIGNS: Blood pressure was 161/59, heart rate 93, respiratory rate of 22, temperature was 102.1. HEENT: Her pupils are equal, round, and reactive. Extraocular muscles are intact. Her sclerae anicteric. Throat, there is no erythema, no exudates. NECK: No adenopathy, no bruits. LUNGS: She has decreased air movement. There is wheezing bilaterally and some rales at both bases. CARDIOVASCULAR: She had a normal S1, S2. No S3 or S4. Her heart rate is tachycardic. No murmurs, no rubs. ABDOMEN: Obese. It is soft, it is nontender, nondistended. Positive for bowel sounds. No rebound or guarding. EXTREMITIES: She has 1+ edema. There is no calf tenderness. There are no joint effusions. NEUROLOGIC: Cranial nerves are intact. Muscle strength is intact. SKIN AND INTEGUMENT: She had some mild erythema of both lower extremities. LABORATORY RESULTS AND X-RAY: Her white blood cell count is 13, hemoglobin 10.5, hematocrit 35.8, and platelet count is 351. Sodium is 136, potassium 4.1, chloride is 92, CO2 is 36, BUN is 21, creatinine is 1.6, glucose is 116. ABG: pH is 7.39, pCO2 is 49.2, and pO2 is 75.2. ASSESSMENT: This is a pleasant 68-year-old female, who is being admitted for an evopi-dq-xycxhny respiratory failure likely due to bilateral pneumonia. On her chest x-ray, she has bilateral interstitial infiltrates in the bases and this is by my reading as well as the elevated white blood cell count and fever. 1. Healthcare-associated pneumonia. She will be placed in the IMCU given her respiratory failure, started on antibiotics to cover for healthcare-associated pneumonia. We will start and continue her on vancomycin and cefepime, supplemental oxygen as well as DuoNebs. 2. Xvdzl-[id number]-[id number] respiratory failure with hypoxemia due to chronic obstructive pulmonary disease exacerbation and pneumonia. It is as per #1. We will also consult her branch lending manager, Dr. Bowman, to aid in her management. Again, she will be placed in the IMCU due to concern that she may require bilevel respiration support as she continues to wheeze after having several rounds of DuoNebs. 3. Diabetes mellitus. We will need to reconcile and restart her home medications as well as a sliding scale. 4. Hypertension. Currently her blood pressure is actually on the lower side and she is requiring some fluid resuscitation, this is likely due to sepsis. 5. The patient will be placed on deep venous thrombosis as well as gastroenterology prophylaxis. Job ID: [id number]
[2018-08-17] MEDS ORDERED: HumaLOG 300 UNITS/3 ML VIAL SC PRN (04:55)
[2018-08-17] MEDS ORDERED: Dextrose 50% Abboject 50 ML SYRINGE SLOW IVP PRN (04:55)
[2018-08-17] MEDS ORDERED: Ondansetron ODT 4 MG TAB PO PRN (04:55)
[2018-08-17] MEDS ORDERED: Dextrose 5% in Water 1,000 ML IV PRN (04:55)
[2018-08-17] MEDS: HumaLOG 300 UNITS/3 ML VIAL SC PRN ×2 (06:18→11:11)
[2018-08-17] MEDS: Cefepime 1 GM in Sodium Chloride 0.9% 100 ML IVPB SCH ×2 (08:49→20:29)
[2018-08-17] MEDS: Vancomycin HCl 1 GM in Premix Bag 1 BAG IVPB SCH (08:49)
[2018-08-17] MEDS: Enoxaparin Sodium 40 MG/0.4 ML SYRINGE SC SCH (08:50)
[2018-08-17] MEDS: Famotidine 20 MG TAB PO SCH (08:50)
[2018-08-17] MEDS ORDERED: Vancomycin HCl 1 GM in Premix Bag 1 BAG IVPB SCH (09:00)
[2018-08-17] MEDS ORDERED: Aspirin 325 mg Enteric Coated Tablet PO SCH (09:00)
[2018-08-17] MEDS ORDERED: Non-Formulary Item 1 EACH (Zantac 150 MG) PO SCH (09:00)
[2018-08-17] MEDS ORDERED: Famotidine 20 MG TAB PO SCH (09:00)
[2018-08-17] MEDS: Lisinopril 10 MG TAB PO SCH (09:32)
[2018-08-17] MEDS: Metoprolol Tartrate 25 MG TAB PO SCH ×2 (09:32→20:29)
[2018-08-17] MEDS: Aspirin 81 mg Enteric Coated Tablet PO SCH (09:35)
--- NOTE | 2018-08-17 11:13 | PDOC.PN ---
- Subjective Encounter Start Date: 08/17/18 Encounter Start Time: 11:12 Patient seen and examined, states she feels a bit better, no family at bedside, all questions answered. - Objective Resuscitation Status - Order Detail: 08/17/18 01:38 Resuscitation Status Routine Resuscitation Status: FULL: Full Resuscitation Vital Signs & Weight: Vital Signs (12 hours) Temp Pulse Resp BP Pulse Ox 08/17/18 08:00 98 08/17/18 07:41 88 24 H 95 08/17/18 07:33 96.6 F L 08/17/18 04:55 98 08/17/18 04:03 98 08/17/18 03:47 98.1 F 99 19 92/44 L 98 Weight Weight 198 lb 12.8 oz Most Recent Monitor Data Heart Rate from ECG 82 NIBP 122/47 NIBP BP-Mean 72 Respiration from ECG 17 SpO2 100 I&O: 08/16/18 08/17/18 08/18/18 06:59 06:59 06:59 Intake Total 212 Output Total 1000 Balance 212 -1000 Result Diagrams: 08/16/18 22:54 08/16/18 22:54 Additional Labs: Accuchecks 08/17/18 08/17/18 10:40 06:00 POC Glucose 327 H 275 H Phys Exam - Physical Examination Constitutional: NAD HEENT: PERRLA, moist MMs, sclera anicteric Neck: no nodes, no JVD, supple, full ROM Respiratory: wheezing present no respiratory distress Cardiovascular: RRR, no significant murmur, no rub Gastrointestinal: soft, non-tender, no distention, positive bowel sounds Musculoskeletal: pulses present, edema present (trace) Dx/Plan (1) COPD exacerbation Code(s): J44.1 - CHRONIC OBSTRUCTIVE PULMONARY DISEASE W (ACUTE) EXACERBATION Status: Acute (2) CAD (coronary artery disease) Code(s): I25.10 - ATHSCL HEART DISEASE OF [place] CORONARY ARTERY W/O ANG PCTRS Status: Chronic (3) Dyslipidemia Code(s): E78.5 - HYPERLIPIDEMIA, UNSPECIFIED Status: Chronic (4) Hypertension Code(s): I10 - ESSENTIAL (PRIMARY) HYPERTENSION Status: Chronic Comment: Uncontrolled after apparent d/c of all prior antihypertensives, start Lisinopril 10mg daily and Metoprolol 12.5mg BID, titrate BP regimen to clinical response (5) Type 2 diabetes mellitus Status: Chronic Comment: ISS, Metformin - Plan * cont with steroids * cont abx * breathing better * transfer to med/sx in AM if patient remains stable for 24 hours * DC plans in 48hrs depending on clinical course * case and plan d/w patient at length, she understood and agreed with this plan.
--- NOTE | 2018-08-17 12:26 | CON ---
DATE OF CONSULTATION: HISTORY OF PRESENT ILLNESS: Mirella Mahoney is a 68-year-old, morbidly obese female, who comes to the hospital, 198 pounds, 5 feet 6 inches, with symptoms of shortness of breath, weakness, unresponsive to her usual medication. In fact, she was just in the ER several days ago, [facility] the [facility] in [place]. She took some steroids for several days and says had to go to the bathroom multiple times. Barely walk 50 feet without getting markedly short of breath or chest pain. Sputum is relatively clear. She has severe limitation to activity. In fact, mostly, she can barely walk 100 feet without getting markedly short of breath. PAST MEDICAL HISTORY: Positive for COPD, morbid obesity, severe deconditioning, penitentiary placement. Multiple admissions in the hospital, last one was about a month ago with diagnoses of respiratory failure, diabetes, coronary artery disease, renal failure, to which we were not consulted. Additionally, she has neuropathy and hypertension. History of lung cancer, status post radiation. PAST SURGICAL HISTORY: Cardiac stent, angioplasty, colon resection, previous ectopic . MEDICATIONS: Home medicines include: 1. Trazodone 50. 2. Metformin 500 twice a day. 3. Catapres 0.1. 4. Zantac 150. 5. Toprol-XL 12.5. 6. Reglan p.r.n. 7. Zestril 10. 8. Lasix 20. 9. Iron tablets. 10. Aspirin. 11. Xanax p.r.n. She is now started on neb treatments, Maxipime, vancomycin. SOCIAL HISTORY: Tobacco, none recently. Alcohol, none. She has penitentiary placement. Quit smoking 10 years ago. ALLERGIES: NAPROSYN, CIPRO. PHYSICAL EXAMINATION: GENERAL/VITAL SIGNS: Morbidly obese, in no acute distress, whose sats are 98% to 100% on 2 L, blood pressure 120/47, respiratory rate 18. CHEST: Reveal decreased breath sounds. No wheezing. CARDIAC: Normal S1 and S2. No gallops. ABDOMEN: No masses. LABORATORY DATA: Glucose of 327, elevated. Otherwise, white count 13,000, H and H of 10 and 35, platelet count is normal. Creatinine is 1.6. ALT is elevated at 109. DIAGNOSTIC DATA: X-ray shows bibasilar infiltrates. IMPRESSION: Respiratory failure, morbid obesity, superimposed pneumonia versus chronic scarring with severe deconditioning, coronary artery disease, probably sleep apnea, renal failure, abnormal liver function profile. I would deescalate antibiotics in the next 24 to 48 hours if cultures are negative. Continue aggressive PT. I have added Dulera to her present treatment. Avoid steroids for the time being since she is diabetic. Obviously, if her condition gets worse, we may institute low-dose prednisone. Consultation note; 70 minutes, 50% direct patient care. Job ID: [id number]
[2018-08-17] MEDS: Mometasone/Formoterol 120 PUFF INHALER INH SCH (18:30)
[2018-08-17] MEDS: Acetaminophen 325 MG TAB PO PRN (18:32)
[2018-08-17] MEDS: Insulin Glargine 5 UNITS in Pre-Filled Syringe 1 EACH SC SCH (20:29)
[2018-08-17] MEDS: Atorvastatin Calcium 40 MG TAB PO SCH (20:30)
[2018-08-18 06:15] LABS: #Eosinphils 0.2 thou/uL (0.0-0.7); #Lymphocytes 1.6 thou/uL (1.20-3.40); #Neutrophils 11.2 thou/uL (1.40-6.50); %Basophils 0.1 % (0.0-1.0); %Eosinophils 1.2 % (0.0-10.0); %Lymphocytes 11.2 % (21.0-51.0); %Monocytes 7.1 % (0.0-10.0); %Neutrophils 80.4 % (42.0-75.0); Hemoglobin 10.1 g/dL (12.0-16.0); Mean Corpuscular HGB CONC 31.7 g/dL (32.0-36.0); Mean Corpuscular Hemoglobin 30.3 pg (27.0-31.0); Mean Corpuscular Volume 95.6 fL (78.0-98.0); Mean Platelet Volume 7.1 fL (7.4-10.4); Platelet Count 346 thou/uL (130-400); RBC Distribution Width 13.2 % (11.5-14.5); Red Blood Cell (RBC) Count 3.33 mill/uL (4.20-5.40); White Blood Cell (WBC) Count 13.9 thou/uL (4.8-10.8)
[2018-08-18 06:18] LABS: Hemoglobin A1c 6.9 % (4.0-6.0)
[2018-08-18 06:36] LABS: Anion Gap 12 mmol/L (10-20); BUN (Urea Nitrogen) 21 mg/dL (9.8-20.1); Calc. Creatinine Clearance 63 mL/min (70-130); Calcium 9.6 mg/dL (7.8-10.44); Carbon Dioxide 34 mmol/L (23-31); Chloride 103 mmol/L (98-107); Estimated GFR-MDRD 45; Glucose 105 mg/dL (80-115); Potassium 4.3 mmol/L (3.5-5.1); Sodium 145 mmol/L (136-145)
[2018-08-18] MEDS: Mometasone/Formoterol 120 PUFF INHALER INH SCH ×2 (07:43→19:25)
[2018-08-18] MEDS: Vancomycin HCl 1 GM in Premix Bag 1 BAG IVPB SCH (08:22)
[2018-08-18] MEDS: Aspirin 81 mg Enteric Coated Tablet PO SCH (08:23)
[2018-08-18] MEDS: Famotidine 20 MG TAB PO SCH (08:24)
[2018-08-18] MEDS: Metoprolol Tartrate 25 MG TAB PO SCH ×2 (08:24→21:03)
[2018-08-18] MEDS: Lisinopril 10 MG TAB PO SCH (08:24)
[2018-08-18] MEDS: Enoxaparin Sodium 40 MG/0.4 ML SYRINGE SC SCH (08:24)
[2018-08-18] MEDS: Cefepime 1 GM in Sodium Chloride 0.9% 100 ML IVPB SCH ×2 (09:33→21:05)
[2018-08-18] MEDS: HumaLOG 300 UNITS/3 ML VIAL SC PRN ×2 (11:14→16:16)
[2018-08-18] MEDS: cloNIDine 0.1 MG TAB PO PRN ×2 (11:15→17:13)
[2018-08-18] MEDS ORDERED: Amlodipine 5 MG TAB PO SCH (11:30)
--- NOTE | 2018-08-18 11:32 | RAD ---
EXAM: XR Chest 1 View Portable PROVIDED CLINICAL HISTORY: Pneumonia COMPARISON: 08/16/2018 FINDINGS: Cardiac and mediastinal silhouette is unchanged in appearance. Bibasilar airspace disease, right grea ter than left is redemonstrated. Right pleural fluid cannot be excluded. There is no evidence for pneumothorax. IMPRESSION: Stable radiographic appearance of the chest.
--- NOTE | 2018-08-18 11:37 | PDOC.PN ---
- Subjective Encounter Start Date: 08/18/18 Encounter Start Time: 11:35 Patient seen and examined, states she feels better, still coughing but feels better, sister at bedside, all questions answered. - Objective Resuscitation Status - Order Detail: 08/17/18 01:38 Resuscitation Status Routine Resuscitation Status: FULL: Full Resuscitation Vital Signs & Weight: Vital Signs (12 hours) Temp Pulse Resp BP Pulse Ox 08/18/18 11:15 189/83 H 08/18/18 10:48 99.2 F 08/18/18 08:24 172/78 H 08/18/18 07:55 98 08/18/18 07:43 73 18 96 08/18/18 07:05 98 08/18/18 07:04 77 20 98 08/18/18 07:00 98.4 F 08/18/18 03:00 98.5 F 08/18/18 00:10 79 22 H 100 Weight Weight 198 lb 12.8 oz Most Recent Monitor Data Heart Rate from ECG 82 NIBP 197/95 NIBP BP-Mean 129 Respiration from ECG 27 SpO2 100 I&O: 08/17/18 08/18/18 08/19/18 06:59 06:59 06:59 Intake Total 212 2435 Output Total 3175 Balance 212 -740 Result Diagrams: 08/18/18 06:01 08/18/18 06:01 Additional Labs: Accuchecks 08/18/18 08/18/18 08/17/18 10:11 06:08 19:59 POC Glucose 160 H 105 252 H 08/17/18 16:38 POC Glucose 129 H Phys Exam - Physical Examination Constitutional: NAD HEENT: PERRLA, moist MMs, sclera anicteric Neck: no nodes, no JVD, supple Respiratory: no rales, no rhonchi, wheezing present Cardiovascular: RRR, no significant murmur, no rub Gastrointestinal: soft, non-tender, no distention Musculoskeletal: pulses present, edema present (trace) Dx/Plan (1) COPD exacerbation Code(s): J44.1 - CHRONIC OBSTRUCTIVE PULMONARY DISEASE W (ACUTE) EXACERBATION Status: Acute (2) CAD (coronary artery disease) Code(s): I25.10 - ATHSCL HEART DISEASE OF [place] CORONARY ARTERY W/O ANG PCTRS Status: Chronic (3) Dyslipidemia Code(s): E78.5 - HYPERLIPIDEMIA, UNSPECIFIED Status: Chronic (4) Hypertension Code(s): I10 - ESSENTIAL (PRIMARY) HYPERTENSION Status: Chronic Comment: Uncontrolled after apparent d/c of all prior antihypertensives, start Lisinopril 10mg daily and Metoprolol 12.5mg BID, titrate BP regimen to clinical response (5) Type 2 diabetes mellitus Status: Chronic Comment: ISS, Metformin - Plan * cont current plan of care for now * adjust steroids * can go to telemetry, pending bed availability * DC plans in 24-48hrs depending on patient's clinical course * case and plan d/w patient and sister at length, they understood and agreed with this plan.
--- NOTE | 2018-08-18 12:03 | PRG ---
DATE OF SERVICE: 08/18/2018 SUBJECTIVE: Mirella Mahoney is a 68-year-old female, who this morning, feels better. OBJECTIVE: VITAL SIGNS: Temperature 99, blood pressure 199/70, pulse 120, respiratory rate 18, and sats 100%. CHEST: Decreased breath sounds. No wheezing. CARDIAC: Normal S1 and S2. No gallops. ABDOMEN: No masses. LABORATORY DATA: Creatinine 1.8, glucose 160. White count 13,000. ASSESSMENT: 1. Respiratory failure. 2. End-stage chronic obstructive pulmonary disease. 3. Hypertension. Cultures so far negative. We will probably try and deescalate the antibiotics. Control blood pressure. PT will follow. Job ID: [id number]
[2018-08-18] MEDS ORDERED: cloNIDine 0.1 MG TAB PO PRN (17:16)
[2018-08-18] MEDS: Atorvastatin Calcium 40 MG TAB PO SCH (21:03)
[2018-08-18] MEDS: Insulin Glargine 5 UNITS in Pre-Filled Syringe 1 EACH SC SCH (21:04)
[2018-08-18] MEDS: Acetaminophen 325 MG TAB PO PRN (22:50)
[2018-08-19] MEDS: Acetaminophen 325 MG TAB PO PRN (05:41)
[2018-08-19 07:28] VITALS: BMI 31.5
[2018-08-19] MEDS: Mometasone/Formoterol 120 PUFF INHALER INH SCH ×2 (07:40→19:12)
[2018-08-19 08:22] LABS: Vancomycin, Trough 11.4 ug/mL
[2018-08-19] MEDS: predniSONE 20 MG TAB PO SCH (08:45)
[2018-08-19] MEDS ORDERED: Amlodipine 5 MG TAB PO SCH (09:00)
[2018-08-19] MEDS: Aspirin 81 mg Enteric Coated Tablet PO SCH (09:02)
[2018-08-19] MEDS: Amlodipine 10 MG TAB PO SCH (09:03)
[2018-08-19] MEDS: Lisinopril 10 MG TAB PO SCH (09:03)
[2018-08-19] MEDS: Metoprolol Tartrate 25 MG TAB PO SCH ×2 (09:03→20:06)
[2018-08-19] MEDS: Famotidine 20 MG TAB PO SCH (09:03)
[2018-08-19] MEDS: Enoxaparin Sodium 40 MG/0.4 ML SYRINGE SC SCH (09:04)
[2018-08-19] MEDS: Cefepime 1 GM in Sodium Chloride 0.9% 100 ML IVPB SCH ×2 (09:19→20:07)
[2018-08-19] MEDS: Vancomycin HCl 1 GM in Premix Bag 1 BAG IVPB SCH (09:23)
--- NOTE | 2018-08-19 09:47 | PRG ---
DATE OF SERVICE: 08/19/2018 SUBJECTIVE: This morning, awake, alert, and responsive. She is feeling better. She is afebrile. She is not coughing any sputum. Appears to be bibasilar infiltrates though. OBJECTIVE: VITAL SIGNS: Her temperature 98, pulse 92, sats 100% on 4L, blood pressure 140/77. CHEST: Decreased breath sounds. No wheezing. CARDIAC: Normal S1 and S2. No gallops. ABDOMEN: No masses. IMPRESSION: Severe chronic obstructive pulmonary disease, bilateral bronchopneumonia, culture negative. PLAN: I probably would discontinue vancomycin. Switch over to oral antibiotics. Continue PT and supportive care. We will follow. Job ID: [id number]
[2018-08-19] MEDS: Doxycycline 100 MG CAP PO SCH ×2 (09:50→20:06)
--- NOTE | 2018-08-19 11:14 | PDOC.EVN ---
Event Note - Event Note Event Note: Dr. Sommers will take over care of patient from today onwards, will change attendings.
[2018-08-19] MEDS: Mag-Al 1200 mg/1200 mg/30 ML UDCUP PO SCH ×2 (17:16→23:47)
[2018-08-19] MEDS: Atorvastatin Calcium 40 MG TAB PO SCH (20:06)
[2018-08-19] MEDS: Insulin Glargine 5 UNITS in Pre-Filled Syringe 1 EACH SC SCH (20:27)
[2018-08-19] MEDS ORDERED: ALPRAZolam 0.25 MG TAB PO SCH (22:45)
[2018-08-20] MEDS: Acetaminophen 325 MG TAB PO PRN (01:00)
[2018-08-20] MEDS: Mag-Al 1200 mg/1200 mg/30 ML UDCUP PO SCH ×3 (06:39→20:27)
[2018-08-20] MEDS: Mometasone/Formoterol 120 PUFF INHALER INH SCH ×2 (07:14→19:08)
[2018-08-20] MEDS: predniSONE 20 MG TAB PO SCH (08:28)
[2018-08-20] MEDS: Lisinopril 10 MG TAB PO SCH (08:28)
[2018-08-20] MEDS: Amlodipine 10 MG TAB PO SCH (08:28)
[2018-08-20] MEDS: Enoxaparin Sodium 40 MG/0.4 ML SYRINGE SC SCH (08:28)
[2018-08-20] MEDS: Metoprolol Tartrate 25 MG TAB PO SCH ×2 (08:28→20:13)
[2018-08-20] MEDS: Doxycycline 100 MG CAP PO SCH ×2 (08:28→20:13)
[2018-08-20] MEDS: Famotidine 20 MG TAB PO SCH (08:29)
[2018-08-20] MEDS: Aspirin 81 mg Enteric Coated Tablet PO SCH (08:29)
--- NOTE | 2018-08-20 09:54 | PRG ---
DATE OF SERVICE: 08/20/2018 SUBJECTIVE: This morning, she is better. Less short of breath. She is anxious. OBJECTIVE: VITAL SIGNS: Blood pressure is elevated at 180/70, pulse 103, saturations 96% on 3L, and respiratory rate 18. CHEST: Decreased breath sounds. No wheezing. CARDIAC: Normal S1 and S2. No gallops. ABDOMEN: No masses. IMPRESSION: 1. Chronic obstructive pulmonary disease. 2. Respiratory failure. 3. Pneumonia. PLAN: All cultures are negative. She can probably be transferred out of the MICU to medical bed. Continue PT supportive care. Vish for anxiety. Job ID: [id number]
[2018-08-20] MEDS: ALPRAZolam 0.25 MG TAB PO PRN ×2 (11:33→22:30)
[2018-08-20] MEDS: Atorvastatin Calcium 40 MG TAB PO SCH (20:13)
[2018-08-20] MEDS: Insulin Glargine 5 UNITS in Pre-Filled Syringe 1 EACH SC SCH (20:13)
[2018-08-21] MEDS: Mag-Al 1200 mg/1200 mg/30 ML UDCUP PO SCH ×5 (01:04→20:13)
[2018-08-21] MEDS: Acetaminophen 325 MG TAB PO PRN (06:07)
[2018-08-21] MEDS: ALPRAZolam 0.25 MG TAB PO PRN ×3 (06:07→22:15)
[2018-08-21] MEDS: Mometasone/Formoterol 120 PUFF INHALER INH SCH ×2 (07:06→18:21)
[2018-08-21] MEDS: Doxycycline 100 MG CAP PO SCH ×2 (08:55→20:12)
[2018-08-21] MEDS: Famotidine 20 MG TAB PO SCH (08:55)
[2018-08-21] MEDS: Amlodipine 10 MG TAB PO SCH (08:55)
[2018-08-21] MEDS: Aspirin 81 mg Enteric Coated Tablet PO SCH (08:55)
[2018-08-21] MEDS: predniSONE 20 MG TAB PO SCH (08:55)
[2018-08-21] MEDS: Metoprolol Tartrate 25 MG TAB PO SCH ×2 (08:56→20:12)
[2018-08-21] MEDS: Lisinopril 10 MG TAB PO SCH (08:56)
[2018-08-21] MEDS: Enoxaparin Sodium 40 MG/0.4 ML SYRINGE SC SCH (08:57)
--- NOTE | 2018-08-21 08:58 | PRG ---
DATE OF SERVICE: 08/21/2018 SUBJECTIVE: This morning, she is better, less short of breath, less cough. OBJECTIVE: VITAL SIGNS: Saturations are 97% on 2 L, pulse 100, temperature 98, respiratory rate 9. CHEST: No wheezing or crackles. CARDIAC: Normal S1 and S2. No gallops. ABDOMEN: No masses. IMPRESSION: Chronic obstructive pulmonary disease; respiratory failure; severe deconditioning; superimposed bibasilar pneumonia, right greater than left. PLAN: The patient appears to be much improved. Continue PT. She needs to be transferred out of the MICU. She is on antibiotics, neb treatments, steroids. Hopefully, she will be discharged home in the next several days. Job ID: [id number]
--- NOTE | 2018-08-21 09:39 | RAD ---
XR Chest Pa Lat STANDARD HISTORY: Dyspnea COMPARISON: Chest x-ray examinations of 08/18/2018 and 07/08/2018. FINDINGS: Heart size is within normal limits. There are atherosclerotic changes of the aorta. There a re severe emphysematous lung changes. Interstitial changes in the bases are felt to be fairly similar to the June study, they appear slightly less prominent than on the August examination. These re sidual changes may be entirely chronic in nature related to the severe COPD changes. IMPRESSION: Chronic appearing lung change. Bibasilar interstitial lung changes are felt to be back to a more baseline appearance.
[2018-08-21] MEDS: HumaLOG 300 UNITS/3 ML VIAL SC PRN (16:54)
[2018-08-21] MEDS: Atorvastatin Calcium 40 MG TAB PO SCH (20:12)
[2018-08-21] MEDS: Insulin Glargine 5 UNITS in Pre-Filled Syringe 1 EACH SC SCH (20:15)
[2018-08-22] MEDS: Mag-Al 1200 mg/1200 mg/30 ML UDCUP PO SCH ×4 (00:05→17:40)
[2018-08-22] MEDS: Acetaminophen 325 MG TAB PO PRN (01:19)
[2018-08-22] MEDS: Mometasone/Formoterol 120 PUFF INHALER INH SCH ×2 (07:11→19:27)
[2018-08-22] MEDS: Lisinopril 10 MG TAB PO SCH (09:13)
[2018-08-22] MEDS: predniSONE 20 MG TAB PO SCH (09:13)
[2018-08-22] MEDS: Doxycycline 100 MG CAP PO SCH ×2 (09:13→20:10)
[2018-08-22] MEDS: Enoxaparin Sodium 40 MG/0.4 ML SYRINGE SC SCH (09:13)
[2018-08-22] MEDS: Metoprolol Tartrate 25 MG TAB PO SCH ×2 (09:13→20:09)
[2018-08-22] MEDS: Amlodipine 10 MG TAB PO SCH (09:15)
[2018-08-22] MEDS: Famotidine 20 MG TAB PO SCH (09:15)
[2018-08-22] MEDS: Aspirin 81 mg Enteric Coated Tablet PO SCH (09:15)
--- NOTE | 2018-08-22 09:25 | PRG ---
DATE OF SERVICE: 08/22/2018 SUBJECTIVE: This morning, awake, alert, and responsive. OBJECTIVE: VITAL SIGNS: Temperature 97, saturations are on 3 L, pulse 78, respiratory rate 20, blood pressure 120/80. GENERAL: No complaints. CHEST: Decreased breath sounds. No wheezing. CARDIAC: Normal S1, S2. No gallops. ASSESSMENT AND PLAN: Right-sided infiltrate, probably chronic, much improved. chronic obstructive pulmonary disease, respiratory failure, pneumonia, severe deconditioning. Disposition, home. Follow up with the primary care physician. Job ID: [id number]
[2018-08-22] MEDS: ALPRAZolam 0.25 MG TAB PO PRN ×2 (12:12→20:09)
[2018-08-22] MEDS: Benzonatate 100 MG CAP PO PRN (15:52)
[2018-08-22] MEDS: HumaLOG 300 UNITS/3 ML VIAL SC PRN (17:42)
[2018-08-22] MEDS: Atorvastatin Calcium 40 MG TAB PO SCH (20:09)
[2018-08-22] MEDS: Insulin Glargine 5 UNITS in Pre-Filled Syringe 1 EACH SC SCH (20:30)
[2018-08-23] MEDS: Mag-Al 1200 mg/1200 mg/30 ML UDCUP PO SCH ×3 (00:21→12:06)
[2018-08-23] MEDS: Acetaminophen 325 MG TAB PO PRN (04:16)
[2018-08-23] MEDS: Mometasone/Formoterol 120 PUFF INHALER INH SCH (06:53)
[2018-08-23] MEDS: Lisinopril 10 MG TAB PO SCH (09:03)
[2018-08-23] MEDS: ALPRAZolam 0.25 MG TAB PO PRN ×2 (09:03→14:38)
[2018-08-23] MEDS: Doxycycline 100 MG CAP PO SCH (09:03)
[2018-08-23] MEDS: predniSONE 20 MG TAB PO SCH (09:04)
[2018-08-23] MEDS: Amlodipine 10 MG TAB PO SCH (09:04)
[2018-08-23] MEDS: Famotidine 20 MG TAB PO SCH (09:04)
[2018-08-23] MEDS: Aspirin 81 mg Enteric Coated Tablet PO SCH (09:04)
[2018-08-23] MEDS: Metoprolol Tartrate 25 MG TAB PO SCH (09:04)
[2018-08-23] MEDS: Enoxaparin Sodium 40 MG/0.4 ML SYRINGE SC SCH (09:05)
--- NOTE | 2018-08-23 09:22 | PRG ---
DATE OF SERVICE: 08/23/2018 SUBJECTIVE: This morning, she is better. She is short of breath with exertion. OBJECTIVE: VITAL SIGNS: Saturations are 96% on 3 L, respirations 16, temperature 97, blood pressure 133/78. CHEST: Decreased breath sounds. No wheezing. CARDIAC: Normal S1, S2. No gallops. ABDOMEN: No masses. IMPRESSION: End-stage chronic obstructive pulmonary disease exacerbation and bronchitis. PLAN: The patient is stable enough to be discharged back to the group home. She can see us in the office at a later time. Job ID: [id number]
[2018-08-23 13:11] VITALS: BP 122/60; TEMP 98.2
[2018-08-23] MEDS: Benzonatate 100 MG CAP PO PRN (14:39)
--- NOTE | 2018-08-26 04:38 | PQF ---
[employer] Integrated Crystal Reports Winform Viewer OUSMANE PRASAD ANUP G MD [id number] [facility] B03 [id number] CLINICAL DOCUMENTATION CLARIFICATION FORM: POST DISCHARGE Addendum to original discharge summary date: ____ Late entry note date: __ DATE: 08-26-2018 ATTN:Tod Ryan Please exercise your independent, professional judgment in responding to the clarification form. Clinical indicators are provided on the bottom of this form for your review Can you please specify whether Sepsis is ruled in or ruled out during this encounter? Please check appropriate box(s) to clarify if the following diagnosis has been ruled in or ruled out: Sepsis [ ] Ruled in diagnosis [ ] Continue to treat [ ] Resolved [ ] Ruled out diagnosis [ ] Cannot rule out diagnosis [ ] Other diagnosis please specify: [ ] Unable to determine For continuity of documentation, please document condition throughout progress notes and discharge summary. Thank You. CLINICAL INDICATORS: H&P 08/[address] Watt admitted for an acute on chronic respiratory failure likely due to bilateral pneumonia H&P 08/[address] Watt Currently her blood pressure is actually on the lower side and she is requiring some fluid resuscitation, this is likely due to sepsis PN 08/[address] Bland COPD exacerbation PN 08/[address] Bowman Chronic obstructive pulmonary disease, respiratory failure; severe deconditioning, superimposed bibasilar pneumonia, right greater than left Laboratory: WBC= 13.0 (08/16), 13.9 (08/18) Vital signs: pulse qxgl=514 bpm (08/19), Respiratory rate= 27 Bpm (08/20) ED 08/17 Dr. Ray Perez pg 08/18 : Final: Primary: hypoxia, additional : hospital acquired pneumonia, Sepsis PN 08/18 Dr. Bowman : Cultures so far negative. We will probably try and deescalate the antibiotics PN 08/19 Dr. Bowman : IMPRESSION: Severe chronic obstructWe pulmonary disease , bilateral bronchopneumonia, culture negative.PLAN: I probably would discontinue v ancomycin. DMtch over to oral antibiotics Continue PT and supportive care. We will follow. RISK FACTOR: Consult by Dr. Bowman- Diabetes Consult by Dr. Bowman-Bibasilar Pneumonia H&P Dr. Watt Personal History of Lung and Colon CA TREATMENTS: Imaging by Dr. Neff- Chest Xray Microbiology- blood culture 08/16 Zithromaz 500 mg JUN 18 Cefipime 2gm-JUN 18 (This form is maintained as a part of the permanent medical record) 2015 [employer]. All Rights Reserved [email or web address] [not provided] MTDD
--- NOTE | 2018-08-26 09:20 | DIS ---
DATE OF ADMISSION: 08/17/2018 DATE OF DISCHARGE: 08/23/2018 ADMITTING DIAGNOSES: 1. Pneumonia, healthcare associated. 2. Acute on chronic respiratory failure due to chronic obstructive pulmonary disease exacerbation and pneumonia. 3. Diabetes mellitus. 4. Hypertension. 5. Anxiety disorder. FINAL DIAGNOSES: 1. Acute on chronic respiratory failure, improved. 2. Pneumonia. 3. Chronic obstructive pulmonary disease exacerbation, improved. 4. Anxiety disorder. 5. Diabetes mellitus, uncontrolled, improved. 6. Hypertension, uncontrolled, improved. BRIEF SUMMARY OF HOSPITAL COURSE: Ms. Mahoney is a 68-year-old female, admitted because of respiratory failure due to pneumonia and COPD exacerbation. The patient initially admitted to [facility]. Pulmonary consulted. The patient was seen by Dr. Bowman. Continue with neb treatments, oxygen, and Dulera. In the next few days, the patient has slowly improved. The patient became very anxious. She was started on Xanax after which the patient became relaxed. Her chest wheezing gradually improved. Her prednisone dose was decreased. Her blood pressure remained high, so her medications were adjusted. The patient was transferred out from [facility] to the medical floor where she was closely monitored for another 2 days, then discharged back to detention. At the time of discharge, she was stable. Lungs are clear. Abdomen is soft, nontender. Bowel sounds present. DISCHARGE MEDICATIONS: Include; 1. Tylenol p.r.n. 2. Ferrous sulfate b.i.d. 3. Zantac 150 b.i.d. 4. Guaifenesin 200 q.6 p.r.n. 5. Trazodone 50 mg at bedtime. 6. Magnesium tablet 200 mg b.i.d. 7. Metoprolol 12.5 b.i.d. 8. Lipitor 40 mg at bedtime. 9. Metformin 500 b.i.d. 10. Milk of magnesium p.r.n. 11. Reglan 10 mg q.i.d. 12. Senokot p.r.n. 13. MiraLAX 17 g daily. 14. Multivitamin daily. 15. Claritin 10 mg daily. 16. Xanax 0.25 b.i.d. 17. Lasix 20 mg every 2 days. 18. Clonidine p.r.n. 19. Lisinopril 10 mg daily. 20. Prednisone tapering doses. 21. Amlodipine 10 mg daily. 22. Doxycycline 100 mg b.i.d. for 10 days. 23. DuoNebs q.i.d. 24. Dulera 2 puffs b.i.d. The patient will be followed up in detention. Job ID: [id number]
== END 2018-08-23 15:55 | DRG 193 ==
LOC: ERS 22:28 → IMCU/EMU 08-17 03:46 → T4-A 08-22 15:05
PROVIDERS: ADMIT Internal Medicine; ATTEND Internal Medicine
DX: J18.9 Pneumonia, unspecified organism (principal); J96.21 Acute and chronic respiratory failure with hypoxia; I50.32 Chronic diastolic (congestive) heart failure; J44.0 Chronic obstructive pulmonary disease with (acute) lower respiratory infection; J44.1 Chronic obstructive pulmonary disease with (acute) exacerbation; I25.10 Atherosclerotic heart disease of native coronary artery without angina pectoris; E61.1 Iron deficiency; K21.9 Gastro-esophageal reflux disease without esophagitis; E11.42 Type 2 diabetes mellitus with diabetic polyneuropathy; E78.5 Hyperlipidemia, unspecified; I11.0 Hypertensive heart disease with heart failure; E66.01 Morbid (severe) obesity due to excess calories; I25.2 Old myocardial infarction; Z99.81 Dependence on supplemental oxygen; Z88.8 Allergy status to other drugs, medicaments and biological substances; Z85.118 Personal history of other malignant neoplasm of bronchus and lung; Z85.038 Personal history of other malignant neoplasm of large intestine; Z79.82 Long term (current) use of aspirin; Z88.1 Allergy status to other antibiotic agents; Z87.891 Personal history of nicotine dependence; Z79.899 Other long term (current) drug therapy; Z92.3 Personal history of irradiation; Z68.30 Body mass index [BMI] 30.0-30.9, adult; Z79.52 Long term (current) use of systemic steroids; Z79.84 Long term (current) use of oral hypoglycemic drugs; E11.40 Type 2 diabetes mellitus with diabetic neuropathy, unspecified; F41.9 Anxiety disorder, unspecified
CPT/HCPCS: 36415; 36416; 71045; 71046; 80048; 80053; 80202; 81003; 81015; 82805; 83036; 83605; 83880; 84484; 85025; 87040; 87804; 93005; 94640; 94644; 96361; 96365; 96366; 96367; 96374; J0456; J0692; J1650; J1825; J2930; J3370; J3490; J7512; J7611; J7620

== ENCOUNTER 2018-10-25 12:44 | Outpatient (CLI) | payer MEDICARE, MEDICAID ==
--- NOTE | 2018-10-25 13:35 | CT ---
CT Chest WO Con HISTORY: History of lung cancer and radiation. Restaging. COMPARISON: 04/30/2018 and 01/28/2018 study also the examination of 06/21/2017. FINDINGS: There are moderate coronary artery calcifications present. No significant mediastinal or hi lar adenopathy is appreciated on this noncontrast exam. Severe emphysematous lung changes are seen within the upper lobes. The parenchymal changes within the right middle lobe are felt to be stable. There is increased parenchymal changes in the right lower lobe directly abutting the major fissure, this is associated with some bronchial narrowing, the soft tissue changes are in a peribronchovascular distribution. There are directly posterior to the location of the spiculated lung mass on the 06/21/2017 study and these changes may be the sequelae of r adiation. The visualized liver parenchyma shows no focal findings. Right and left adrenal glands are normal. Co rtical scarring is seen involving the visualized portion of the left kidney. IMPRESSION: 1. The nodular parenchymal changes in the right middle lobe is stable. 2. Increased parenchymal changes within the right lower lobe this is directly posterior to the locati on of the spiculated nodule seen on the 06/21/2017 CT study. These changes could be the sequelae of radiation but do represent an interval change since prior studies. 3. Coronary artery calcifications. 4. Severe emphysematous lung change.
== END 2018-10-25 12:45 | disposition home or self-care (01) ==
LOC: CT 12:44
PROVIDERS: ATTEND Radiology Radiation Oncology
DX: C34.2 Malignant neoplasm of middle lobe, bronchus or lung (principal); I25.10 Atherosclerotic heart disease of native coronary artery without angina pectoris
CPT/HCPCS: 71250

== ENCOUNTER 2019-01-05 03:40 | Inpatient (IN) | payer MEDICARE, MEDICAID ==
[2019-01-05] MEDS ORDERED: methylPREDNISolone Sod Succ/PF 125 MG/2 ML VIAL ONE (03:57)
[2019-01-05] MEDS ORDERED: Cefepime 2 GM VIAL ONE (04:52)
[2019-01-05 05:16] LABS: #Eosinphils 0.1 thou/uL (0.0-0.7); #Lymphocytes 1.4 thou/uL (1.20-3.40); #Monocytes 0.4 thou/uL (0.11-0.59); #Neutrophils 3.6 thou/uL (1.40-6.50); %Basophils 0.5 % (0.0-1.0); %Eosinophils 2.5 % (0.0-10.0); %Lymphocytes 25.1 % (21.0-51.0); %Monocytes 7.7 % (0.0-10.0); %Neutrophils 64.2 % (42.0-75.0); Hemoglobin 10.2 g/dL (12.0-16.0); Mean Corpuscular HGB CONC 31.9 g/dL (32.0-36.0); Mean Corpuscular Hemoglobin 30.3 pg (27.0-31.0); Mean Corpuscular Volume 94.7 fL (78.0-98.0); Mean Platelet Volume 7.9 fL (7.4-10.4); Platelet Count 203 thou/uL (130-400); RBC Distribution Width 13.1 % (11.5-14.5); Red Blood Cell (RBC) Count 3.37 mill/uL (4.20-5.40); White Blood Cell (WBC) Count 5.6 thou/uL (4.8-10.8)
[2019-01-05 05:55] LABS: ALT (SGPT) 18 U/L (8-55); AST (SGOT) 13 U/L (5-34); Albumin 3.9 g/dL (3.4-4.8); Alkaline Phosphatase 91 U/L (40-150); Anion Gap 8 mmol/L (10-20); BUN (Urea Nitrogen) 16 mg/dL (9.8-20.1); Bilirubin, Total 0.3 mg/dL (0.2-1.2); Calc. Creatinine Clearance 0 mL/min (70-130); Calcium 9.4 mg/dL (7.8-10.44); Carbon Dioxide 36 mmol/L (23-31); Chloride 101 mmol/L (98-107); Estimated GFR-MDRD 44; Globulin 2.4 g/dL (2.4-3.5); Glucose 125 mg/dL (80-115); Potassium 4.2 mmol/L (3.5-5.1); Protein, Total 6.3 g/dL (6.0-8.3); Sodium 141 mmol/L (136-145)
--- NOTE | 2019-01-05 07:54 | RAD ---
EXAM: XR Chest 1 View Portable PROVIDED CLINICAL HISTORY: Dyspnea COMPARISON: 08/18/2018 FINDINGS: Cardiac and mediastinal silhouette is unchanged in appearance. Vascular calcification involves the ao rtic arch. Severe emphysematous changes are redemonstrated. Bilateral lower lung zone parenchymal prominence appears similar to the prior study. There is no evidence for pleural fluid or pneumothorax . IMPRESSION: Stable radiographic appearance of the chest.
[2019-01-05 08:16] VITALS: BMI 31.4
[2019-01-05] MEDS ORDERED: Acetaminophen 500 MG TAB PO PRN (08:23)
[2019-01-05] MEDS ORDERED: PROVENTIL INHALER 6.7 G (200 INHALATIONS) INH PRN (08:24)
[2019-01-05] MEDS ORDERED: Ipratropium Bromide 2.5 ml Neb NEB PRN (08:25)
[2019-01-05] MEDS ORDERED: Polyethylene Glycol 3350 17 GM Packet PO PRN (08:26)
[2019-01-05] MEDS ORDERED: traMADol HCl 50 MG TAB PO PRN (08:26)
[2019-01-05] MEDS ORDERED: Milk Of Magnesia 30 ML UDCUP PO PRN (08:28)
[2019-01-05] MEDS ORDERED: ALPRAZolam 0.25 MG TAB PO PRN (08:30)
[2019-01-05] MEDS ORDERED: Nitroglycerin 0.4 MG TAB 1 EACH SL PRN (08:30)
[2019-01-05] MEDS ORDERED: cloNIDine 0.1 MG TAB PO PRN (08:31)
[2019-01-05] MEDS ORDERED: Fluticasone Propionate Nasal Spray 16 gm Bottle NASAL PRN ×2 (08:32→17:08)
[2019-01-05] MEDS ORDERED: BIOFREEZE TOP PRN (08:35)
[2019-01-05] MEDS ORDERED: Famotidine 20 MG TAB PO SCH (09:00)
[2019-01-05] MEDS: Magnesium Oxide 400 MG TAB PO SCH ×2 (09:14→20:51)
[2019-01-05] MEDS: Aspirin 81 mg Enteric Coated Tablet PO SCH (09:15)
[2019-01-05] MEDS: Furosemide 20 MG TAB PO SCH (09:15)
[2019-01-05] MEDS: Amlodipine 10 MG TAB PO SCH (09:16)
[2019-01-05] MEDS: Ferrous Sulfate 325 MG TAB PO SCH ×2 (09:17→20:51)
[2019-01-05] MEDS: Lisinopril 10 MG TAB PO SCH (09:17)
[2019-01-05] MEDS: Multivit, Therapeutic 1 TAB PO SCH (09:17)
[2019-01-05] MEDS: Loratadine 10 MG TAB PO SCH (09:23)
[2019-01-05] MEDS: Piperacillin/Tazobactam 3.375 GM in Sodium Chloride 0.9% 100 ML IVPB SCH ×3 (11:19→23:13)
[2019-01-05] MEDS: methylPREDNISolone Sod Succ 40 MG VIAL IVP SCH ×3 (11:23→23:12)
[2019-01-05] MEDS ORDERED: Dextrose 50% Abboject 50 ML SYRINGE IVP PRN (16:19)
[2019-01-05] MEDS ORDERED: Dextrose 5% in Water 1,000 ML IV PRN (16:19)
[2019-01-05] MEDS ORDERED: Metoprolol Tartrate 25 MG TAB PO SCH (17:00)
[2019-01-05] MEDS: Insulin Regular 300 UNITS/3 ML VIAL SC PRN ×2 (17:08→20:56)
[2019-01-05] MEDS: metFORMIN 500 MG TAB PO SCH (17:08)
--- NOTE | 2019-01-05 17:14 | HP ---
CHIEF COMPLAINT: Hypoxia and shortness of breath. HISTORY OF PRESENT ILLNESS: Ms. Mahoney is a 68-year-old female with past medical history of COPD, was found to be hypoxic according to the care home staff, she is 78% on 3 L nasal cannula. She was complaining of some shortness of breath and wheezing, but no fever. She did not have any chest pain. No headache. No dizziness and called the EMS, who found the patient with chest wheezing and rhonchi with hypoxia. The patient received DuoNeb treatments x2 and by the time she came to the emergency room, her saturation improved to 90%. In the ER, the patient was evaluated and the ER physician felt she may have right lower lobe infiltrate suggestive of pneumonia. She received a dose of cefepime and vancomycin, also received a dose of Solu-Medrol and DNS, and admitted for further management. PAST MEDICAL HISTORY: 1. COPD. 2. Diabetes mellitus. 3. History of chronic diastolic heart failure. 4. Coronary artery disease with history of [place] in 2012. 5. Iron-deficiency anemia. 6. Gastroesophageal reflux disease. 7. Polyneuropathy. 8. History of colon cancer. 9. Hypertension. 10. Hyperlipidemia. PAST SURGICAL HISTORY: Status post stent placement, status post colon resection. ALLERGIES: ALEVE AND CIPRO. CURRENT MEDICATIONS: The patient is on; 1. Xanax 0.25 b.i.d. 2. Amlodipine 10 mg daily. 3. Aspirin 81 mg daily. 4. Atorvastatin 40 mg at bedtime. 5. Clonidine p.r.n. 6. Ferrous sulfate 325 b.i.d. 7. Flonase nasal spray daily. 8. Breo Ellipta one inhaler daily. 9. Lasix 20 mg one every 2 days. 10. DuoNebs q.i.d. 11. Lisinopril 10 mg daily. 12. Claritin 10 mg daily. 13. Magnesium 200 mg b.i.d. 14. Milk of magnesia p.r.n. 15. Biofreeze p.r.n. 16. Metformin 500 b.i.d. 17. Metoprolol 12.5 b.i.d. 18. Multivitamin daily. 19. MiraLAX 17 g daily. 20. Tramadol 50 q.i.d. p.r.n. 21. Trazodone 50 mg at bedtime. 22. Incruse Ellipta one inhaler daily. 23. Ventolin inhaler p.r.n. 24. Zantac 150 b.i.d. FAMILY HISTORY: Nothing contributory. SOCIAL HISTORY: The patient is a resident of care home. No history of smoking. REVIEW OF SYSTEMS: CARDIOVASCULAR: Has shortness of breath. No chest pain. RESPIRATORY: Has cough, nonproductive. No fever. GASTROINTESTINAL: No nausea, vomiting, and abdominal symptoms. CENTRAL NERVOUS SYSTEM: No headache. No dizziness. PHYSICAL EXAMINATION: GENERAL: The patient is alert, awake, oriented x3. VITAL SIGNS: Temperature 98, pulse 96, respiratory rate 20, blood pressure 140/70. HEENT: Head is normocephalic, atraumatic. Pupils are equal and reactive. Nasopharynx is pale and dry. Hard and soft palate, no lesions. SKIN: Turgor decreased. NECK: Supple. No JVD. LUNGS: Breath sounds diminished bilaterally. Percussion dull bilaterally. Expiratory wheeze present. HEART: S1 and S2, regular. ABDOMEN: Soft. No distention. No tenderness. Normal bowel sounds. RECTAL: Deferred. CENTRAL NERVOUS SYSTEM: No focal deficit. LABORATORY DATA: CBC shows WBC 4.6, hemoglobin 10, hematocrit 31, platelets 203. Metabolic panel; sodium 140, potassium 4.2, chloride 101, CO2 of 26, BUN 16, creatinine 1.2, glucose 125. Troponin less than 0.010. Chest x-ray just showed questionable infiltrate in the left lower lobe. EKG shows normal sinus rhythm, no acute ST-T changes seen. ASSESSMENT: 1. Chronic obstructive pulmonary disease with acute exacerbation. 2. Acute on chronic respiratory failure. 3. Questionable pneumonia, right lower lobe. 4. Hyperlipidemia. 5. Anxiety disorder. 6. Diabetes mellitus. 7. Hypertension. PLAN: 1. Vital signs q.4 hours. 2. Activity as tolerated. 3. Allergies are Aleve, Cipro, naproxen. 4. Hep-Lock. 5. Solu-Medrol 20 IVP q.6h. 6. DuoNeb 1 unit q.4 hours. 7. Oxygen via nasal cannula at 3 L. 8. Continue care home medications. 9. Cefepime 1 g IV piggyback q.6 hours. 10. Diet: ADA and cardiac. Job ID: [id number]
[2019-01-05] MEDS ORDERED: Mometasone/Formoterol 120 PUFF INHALER INH SCH (18:30)
[2019-01-05] MEDS: Ipratropium Bromide 2.5 ml Neb NEB SCH ×2 (18:50→22:45)
[2019-01-05] MEDS: Mometasone/Formoterol 120 PUFF INHALER INH SCH (19:06)
[2019-01-05] MEDS: Atorvastatin Calcium 40 MG TAB PO SCH (20:50)
[2019-01-05] MEDS: Famotidine 20 MG TAB PO SCH (20:50)
[2019-01-05] MEDS: ALPRAZolam 0.25 MG TAB PO SCH (20:51)
[2019-01-05] MEDS: traZODone HCl 50 MG TAB PO SCH (20:51)
[2019-01-06] MEDS: Piperacillin/Tazobactam 3.375 GM in Sodium Chloride 0.9% 100 ML IVPB SCH ×4 (05:38→23:21)
[2019-01-06] MEDS: methylPREDNISolone Sod Succ 40 MG VIAL IVP SCH ×4 (05:38→23:21)
[2019-01-06] MEDS: Insulin Regular 300 UNITS/3 ML VIAL SC PRN ×2 (05:45→11:45)
[2019-01-06] MEDS: Ipratropium Bromide 2.5 ml Neb NEB SCH (06:12)
[2019-01-06] MEDS: Mometasone/Formoterol 120 PUFF INHALER INH SCH ×2 (06:49→18:50)
[2019-01-06] MEDS: metFORMIN 500 MG TAB PO SCH ×2 (07:52→17:05)
[2019-01-06] MEDS: Metoprolol Tartrate 25 MG TAB PO SCH ×2 (07:52→17:05)
[2019-01-06] MEDS ORDERED: Fluticasone Propionate Nasal Spray 16 gm Bottle NASAL SCH (09:00)
[2019-01-06] MEDS: ALPRAZolam 0.25 MG TAB PO SCH ×2 (09:31→20:10)
[2019-01-06] MEDS: Amlodipine 10 MG TAB PO SCH (09:31)
[2019-01-06] MEDS: Multivit, Therapeutic 1 TAB PO SCH (09:32)
[2019-01-06] MEDS: Aspirin 81 mg Enteric Coated Tablet PO SCH (09:32)
[2019-01-06] MEDS: Ferrous Sulfate 325 MG TAB PO SCH ×2 (09:32→20:10)
[2019-01-06] MEDS: Lisinopril 10 MG TAB PO SCH (09:32)
[2019-01-06] MEDS: Magnesium Oxide 400 MG TAB PO SCH ×2 (09:32→20:10)
[2019-01-06] MEDS: Famotidine 20 MG TAB PO SCH ×2 (09:32→20:10)
[2019-01-06] MEDS: Loratadine 10 MG TAB PO SCH (09:32)
[2019-01-06] MEDS: traZODone HCl 50 MG TAB PO SCH (20:09)
[2019-01-06] MEDS: Atorvastatin Calcium 40 MG TAB PO SCH (20:09)
[2019-01-07] MEDS: methylPREDNISolone Sod Succ 40 MG VIAL IVP SCH ×4 (05:22→23:46)
[2019-01-07] MEDS: Piperacillin/Tazobactam 3.375 GM in Sodium Chloride 0.9% 100 ML IVPB SCH ×4 (05:22→23:46)
[2019-01-07] MEDS: Insulin Regular 300 UNITS/3 ML VIAL SC PRN ×2 (05:25→16:55)
[2019-01-07] MEDS: Mometasone/Formoterol 120 PUFF INHALER INH SCH ×2 (06:17→19:25)
[2019-01-07] MEDS: Metoprolol Tartrate 25 MG TAB PO SCH ×2 (07:32→16:50)
[2019-01-07] MEDS: metFORMIN 500 MG TAB PO SCH ×2 (07:32→16:58)
[2019-01-07] MEDS: Amlodipine 10 MG TAB PO SCH (09:34)
[2019-01-07] MEDS: Aspirin 81 mg Enteric Coated Tablet PO SCH (09:35)
[2019-01-07] MEDS: Lisinopril 10 MG TAB PO SCH (09:35)
[2019-01-07] MEDS: Furosemide 20 MG TAB PO SCH (09:35)
[2019-01-07] MEDS: Loratadine 10 MG TAB PO SCH (09:35)
[2019-01-07] MEDS: Multivit, Therapeutic 1 TAB PO SCH (09:35)
[2019-01-07] MEDS: Famotidine 20 MG TAB PO SCH ×2 (09:36→20:19)
[2019-01-07] MEDS: Ferrous Sulfate 325 MG TAB PO SCH ×2 (09:36→20:19)
[2019-01-07] MEDS: Magnesium Oxide 400 MG TAB PO SCH ×2 (09:36→20:19)
[2019-01-07] MEDS: ALPRAZolam 0.25 MG TAB PO SCH ×2 (09:36→20:19)
[2019-01-07] MEDS: traZODone HCl 50 MG TAB PO SCH (20:19)
[2019-01-07] MEDS: Atorvastatin Calcium 40 MG TAB PO SCH (20:19)
[2019-01-08] MEDS: Insulin Regular 300 UNITS/3 ML VIAL SC PRN ×3 (05:46→16:43)
[2019-01-08] MEDS: methylPREDNISolone Sod Succ 40 MG VIAL IVP SCH ×4 (05:46→23:58)
[2019-01-08] MEDS: Piperacillin/Tazobactam 3.375 GM in Sodium Chloride 0.9% 100 ML IVPB SCH ×4 (05:46→23:57)
[2019-01-08] MEDS: Mometasone/Formoterol 120 PUFF INHALER INH SCH ×2 (06:42→18:25)
[2019-01-08] MEDS: Magnesium Oxide 400 MG TAB PO SCH ×2 (08:08→20:37)
[2019-01-08] MEDS: metFORMIN 500 MG TAB PO SCH ×2 (08:08→16:41)
[2019-01-08] MEDS: Aspirin 81 mg Enteric Coated Tablet PO SCH (08:08)
[2019-01-08] MEDS: Ferrous Sulfate 325 MG TAB PO SCH ×2 (08:08→20:37)
[2019-01-08] MEDS: Famotidine 20 MG TAB PO SCH ×2 (08:08→20:37)
[2019-01-08] MEDS: Amlodipine 10 MG TAB PO SCH (08:08)
[2019-01-08] MEDS: Multivit, Therapeutic 1 TAB PO SCH (08:08)
[2019-01-08] MEDS: Loratadine 10 MG TAB PO SCH (08:08)
[2019-01-08] MEDS: Lisinopril 10 MG TAB PO SCH (08:08)
[2019-01-08] MEDS: Metoprolol Tartrate 25 MG TAB PO SCH ×2 (08:09→16:41)
[2019-01-08] MEDS: ALPRAZolam 0.25 MG TAB PO SCH ×2 (08:10→20:36)
[2019-01-08] MEDS: traZODone HCl 50 MG TAB PO SCH (20:37)
[2019-01-08] MEDS: Atorvastatin Calcium 40 MG TAB PO SCH (20:37)
[2019-01-09] MEDS: methylPREDNISolone Sod Succ 40 MG VIAL IVP SCH ×4 (05:28→22:47)
[2019-01-09] MEDS: Piperacillin/Tazobactam 3.375 GM in Sodium Chloride 0.9% 100 ML IVPB SCH ×3 (05:29→18:18)
[2019-01-09] MEDS: Insulin Regular 300 UNITS/3 ML VIAL SC PRN ×2 (06:25→17:14)
[2019-01-09] MEDS: Mometasone/Formoterol 120 PUFF INHALER INH SCH ×2 (06:47→18:03)
[2019-01-09] MEDS: Metoprolol Tartrate 25 MG TAB PO SCH ×2 (08:33→17:15)
[2019-01-09] MEDS: metFORMIN 500 MG TAB PO SCH ×2 (08:33→17:15)
[2019-01-09] MEDS: Magnesium Oxide 400 MG TAB PO SCH ×2 (08:34→20:21)
[2019-01-09] MEDS: ALPRAZolam 0.25 MG TAB PO SCH ×2 (08:35→20:22)
[2019-01-09] MEDS: Amlodipine 10 MG TAB PO SCH (08:35)
[2019-01-09] MEDS: Famotidine 20 MG TAB PO SCH ×2 (08:36→20:21)
[2019-01-09] MEDS: Lisinopril 10 MG TAB PO SCH (08:36)
[2019-01-09] MEDS: Aspirin 81 mg Enteric Coated Tablet PO SCH (08:36)
[2019-01-09] MEDS: Loratadine 10 MG TAB PO SCH (08:37)
[2019-01-09] MEDS: Multivit, Therapeutic 1 TAB PO SCH (08:37)
[2019-01-09] MEDS: Furosemide 20 MG TAB PO SCH (08:37)
[2019-01-09] MEDS: Ferrous Sulfate 325 MG TAB PO SCH ×2 (08:38→20:21)
[2019-01-09] MEDS ORDERED: Mag-Al 1200 mg/1200 mg/30 ML UDCUP PO PRN (10:50)
[2019-01-09] MEDS ORDERED: Loperamide HCl 2 MG CAP PO PRN (18:43)
[2019-01-09] MEDS: traZODone HCl 50 MG TAB PO SCH (20:21)
[2019-01-09] MEDS: Atorvastatin Calcium 40 MG TAB PO SCH (20:21)
[2019-01-10] MEDS: methylPREDNISolone Sod Succ 40 MG VIAL IVP SCH (05:40)
[2019-01-10] MEDS: Insulin Regular 300 UNITS/3 ML VIAL SC PRN (05:42)
[2019-01-10] MEDS: Mometasone/Formoterol 120 PUFF INHALER INH SCH (06:51)
[2019-01-10 07:40] VITALS: TEMP 97.7
[2019-01-10] MEDS: ALPRAZolam 0.25 MG TAB PO SCH (08:21)
[2019-01-10] MEDS: Magnesium Oxide 400 MG TAB PO SCH (08:21)
[2019-01-10] MEDS: Famotidine 20 MG TAB PO SCH (08:21)
[2019-01-10] MEDS: Amlodipine 10 MG TAB PO SCH (08:23)
[2019-01-10] MEDS: Ferrous Sulfate 325 MG TAB PO SCH (08:24)
[2019-01-10] MEDS: Aspirin 81 mg Enteric Coated Tablet PO SCH (08:25)
[2019-01-10] MEDS: Multivit, Therapeutic 1 TAB PO SCH (08:25)
[2019-01-10] MEDS: metFORMIN 500 MG TAB PO SCH ×2 (08:26→16:20)
[2019-01-10] MEDS: Metoprolol Tartrate 25 MG TAB PO SCH ×2 (08:26→16:20)
[2019-01-10] MEDS: Loratadine 10 MG TAB PO SCH (08:26)
[2019-01-10] MEDS: Lisinopril 10 MG TAB PO SCH (08:27)
[2019-01-10] MEDS ORDERED: predniSONE 20 MG TAB PO SCH (09:00)
--- NOTE | 2019-01-10 15:04 | PQF ---
CLINICAL DOCUMENTATION IMPROVEMENT CLARIFICATION FORM: ICD-10 Updated PLEASE DO AN ADDENDUM TO THE PROGRESS NOTE WITH ANY DOCUMENTATION UPDATES OR ADDITIONS AND CARRY THROUGH TO DC SUMMARY. THANK YOU. DATE: 01/10/2019 ATTN: Dr. Sommers Please exercise your independent, professional judgment in responding to the clarification form. Clinical indicators are provided on the bottom of this form for your review Please check appropriate box(s) to clarify if the following diagnosis has been ruled in or ruled out: PNEUMONIA [ ] Ruled in diagnosis [ ] Continue to treat [ ] Resolved [ y] Ruled out diagnosis [ ] Cannot rule out diagnosis [ ] Other diagnosis [ ] Unable to determine In addition, please specify: Present on Admission (POA): [ y ] Yes [ ] No [ ] Unable to determine For continuity of documentation, please document condition throughout progress notes and discharge summary. Thank You. CLINICAL INDICATORS - SIGNS / SYMPTOMS / LABS H&P 01/05: In the ER, the pt was evaluated and the ER physician felt she may have right lower lobe infiltrate suggestive of pneumonia. Chest x-ray just showed questionable infiltrate in the left LL RISKS: H&P 01/05: 68 yo. with past medical hx of COPD, was found to by hypoxic according to the correction staff. Assessment: COPD exacerbation. Acute on chronic respiratory failure. DM, HTN TREATMENT: Order 01/05-01/08: Zosyn 3.375 gm IV Thank you, Moraima (This form is maintained as a part of the permanent medical record) 2014 [email or web address], [employer]. All Rights Reserved Moraima Ac RN, BSN [email or web address] Office: [phone] [facility] SYSTEMSteve
[2019-01-10 16:31] VITALS: BP 147/64
--- NOTE | 2019-01-12 17:15 | EKG ---
Test Reason : C/O CHEST PAIN Blood Pressure : / mmHG Vent. Rate : 075 BPM Atrial Rate : 075 BPM P-R Int : 180 ms QRS Dur : 092 ms QT Int : 366 ms P-R-T Axes : 068 035 066 degrees QTc Int : 408 ms Normal sinus rhythm Normal ECG When compared with ECG of 05-JAN-2019 04:09, (Unconfirmed) MA interval has decreased Confirmed by OMARI GIRARD (2) on 01/12/2019 5:15:40 PM Referred By: ABA Confirmed By:OMARI GIRARD
== END 2019-01-10 16:39 | DRG 189 ==
LOC: ERS 03:40 → T4-A 05:14
PROVIDERS: ADMIT Internal Medicine; ATTEND Internal Medicine
DX: J96.21 Acute and chronic respiratory failure with hypoxia (principal); J44.1 Chronic obstructive pulmonary disease with (acute) exacerbation; C34.90 Malignant neoplasm of unspecified part of unspecified bronchus or lung; I50.32 Chronic diastolic (congestive) heart failure; I25.2 Old myocardial infarction; K21.9 Gastro-esophageal reflux disease without esophagitis; I25.10 Atherosclerotic heart disease of native coronary artery without angina pectoris; D50.9 Iron deficiency anemia, unspecified; E11.42 Type 2 diabetes mellitus with diabetic polyneuropathy; E78.5 Hyperlipidemia, unspecified; I11.0 Hypertensive heart disease with heart failure; F41.9 Anxiety disorder, unspecified; Z79.4 Long term (current) use of insulin; Z85.038 Personal history of other malignant neoplasm of large intestine; Z95.5 Presence of coronary angioplasty implant and graft
CPT/HCPCS: 36415; 36416; 71045; 80053; 83880; 84484; 85025; 87040; 87324; 87449; 93005; 93010; 96374; J0692; J1815; J2543; J2920; J2930; J3370; J3490; J7512; J7620

== ENCOUNTER 2019-03-27 11:28 | Inpatient (IN) | payer MEDICARE, MEDICAID ==
--- NOTE | 2019-03-27 12:14 | RAD ---
Chest one view HISTORY: Dyspnea. Cough. COMPARISON: 01/05/2019. FINDINGS: Cardiac silhouette is magnified by projection and upper limits of normal in size. Pulmonary vasculature are unremarkable. Reticulonodular interstitial prominence of the lower lobes is similar in appearance to the previous exam. No lobar consolidation or evidence of pneumothorax. Lungs are otherwise hyperinflated. Mediastinum is midline with aortic calcification. IMPRESSION: Chronic-type findings are stable. Atherosclerosis.
[2019-03-27 12:15] LABS: #Eosinphils 0.1 thou/uL (0.0-0.7); #Lymphocytes 1.3 thou/uL (1.20-3.40); #Monocytes 0.4 thou/uL (0.11-0.59); #Neutrophils 5.1 thou/uL (1.40-6.50); %Basophils 0.4 % (0.0-1.0); %Eosinophils 1.1 % (0.0-10.0); %Lymphocytes 18.8 % (21.0-51.0); %Monocytes 5.8 % (0.0-10.0); %Neutrophils 73.9 % (42.0-75.0); Hemoglobin 9.2 g/dL (12.0-16.0); Mean Corpuscular HGB CONC 31.2 g/dL (32.0-36.0); Mean Corpuscular Hemoglobin 29.1 pg (27.0-31.0); Mean Corpuscular Volume 93.2 fL (78.0-98.0); Mean Platelet Volume 7.6 fL (7.4-10.4); Platelet Count 225 thou/uL (130-400); RBC Distribution Width 13.2 % (11.5-14.5); Red Blood Cell (RBC) Count 3.15 mill/uL (4.20-5.40); White Blood Cell (WBC) Count 6.9 thou/uL (4.8-10.8)
[2019-03-27 12:38] LABS: ALT (SGPT) 16 U/L (8-55); AST (SGOT) 16 U/L (5-34); Albumin 3.9 g/dL (3.4-4.8); Alkaline Phosphatase 91 U/L (40-110); Anion Gap 11 mmol/L (10-20); BUN (Urea Nitrogen) 17 mg/dL (9.8-20.1); Bilirubin, Total 0.5 mg/dL (0.2-1.2); Calc. Creatinine Clearance 0 mL/min (70-130); Calcium 9.3 mg/dL (7.8-10.44); Carbon Dioxide 37 mmol/L (23-31); Chloride 97 mmol/L (98-107); Estimated GFR-MDRD 35; Globulin 2.5 g/dL (2.4-3.5); Glucose 111 mg/dL (80-115); Lipase 18 U/L (8-78); Potassium 4.5 mmol/L (3.5-5.1); Protein, Total 6.4 g/dL (6.0-8.3); Sodium 140 mmol/L (136-145)
[2019-03-27] MEDS ORDERED: Azithromycin 500 MG VIAL ONE (14:00)
[2019-03-27] MEDS ORDERED: Magnesium 2 GM/50 ML BAG (IN WATER) ONE (14:00)
[2019-03-27] MEDS ORDERED: cefTRIAXone\\ROCEPHIN 2 GM VIAL ONE (14:00)
[2019-03-27] MEDS ORDERED: Oseltamivir 75 MG CAP PO SCH ×2 (15:00→21:00)
[2019-03-27] MEDS ORDERED: Ondansetron PF 4 MG/2 ML Vial IVP PRN (18:20)
[2019-03-27] MEDS ORDERED: Ondansetron ODT 4 MG TAB SL PRN (18:20)
[2019-03-27] MEDS ORDERED: Acetaminophen 325 MG TAB PO PRN (18:20)
[2019-03-27 18:46] VITALS: BMI 31.0
[2019-03-27] MEDS ORDERED: Dextrose 5% in Water 1,000 ML IV PRN (21:36)
[2019-03-27] MEDS ORDERED: Dextrose 50% Abboject 50 ML SYRINGE IVP PRN (21:36)
[2019-03-27] MEDS ORDERED: Polyethylene Glycol 3350 17 GM Packet PO PRN (21:45)
[2019-03-27] MEDS ORDERED: guaiFENesin ER 600 MG TAB PO SCH (21:45)
[2019-03-27] MEDS ORDERED: Nitroglycerin 0.4 MG TAB (25 Tab Bottle) SL PRN (21:45)
[2019-03-27] MEDS ORDERED: traMADol HCl 50 MG TAB PO PRN (21:46)
[2019-03-27] MEDS ORDERED: Milk Of Magnesia 30 ML UDCUP PO PRN (21:49)
[2019-03-27] MEDS ORDERED: Loperamide HCl 2 MG CAP PO PRN (21:49)
[2019-03-27] MEDS ORDERED: Acetaminophen 500 MG TAB PO PRN (21:57)
[2019-03-27] MEDS ORDERED: Magnesium Oxide 400 MG TAB PO SCH (22:00)
[2019-03-27] MEDS ORDERED: traZODone HCl 50 MG TAB PO SCH (22:00)
[2019-03-27] MEDS ORDERED: PROVENTIL INHALER 6.7 G (200 INHALATIONS) INH PRN (22:00)
[2019-03-27] MEDS ORDERED: Metoprolol Tartrate 25 MG TAB PO SCH (22:00)
[2019-03-27] MEDS ORDERED: Mag-Al 1200 mg/1200 mg/30 ML UDCUP PO PRN (22:00)
[2019-03-27] MEDS ORDERED: cloNIDine 0.1 MG TAB PO PRN (22:03)
[2019-03-27] MEDS: methylPREDNISolone Sod Succ 40 MG VIAL IVP SCH (22:13)
[2019-03-27] MEDS ORDERED: Atorvastatin Calcium 40 MG TAB PO SCH (22:15)
[2019-03-27] MEDS ORDERED: ALPRAZolam 0.25 MG TAB PO SCH (22:15)
[2019-03-27] MEDS: HumaLOG 300 UNITS/3 ML VIAL SC PRN (22:23)
[2019-03-27] MEDS: Fluticasone Propionate Nasal Spray 16 gm Bottle NASAL PRN (22:30)
[2019-03-27] MEDS ORDERED: BIOFREEZE 4% TOP PRN (22:33)
[2019-03-28] MEDS: methylPREDNISolone Sod Succ 40 MG VIAL IVP SCH ×4 (06:36→23:39)
[2019-03-28] MEDS: HumaLOG 300 UNITS/3 ML VIAL SC PRN ×3 (06:37→17:07)
[2019-03-28] MEDS: Mometasone/Formoterol 120 PUFF INHALER INH SCH ×2 (06:42→19:07)
--- NOTE | 2019-03-28 08:39 | HP ---
CHIEF COMPLAINT: Shortness of breath, hypoxia, and not feeling well. HISTORY OF PRESENT ILLNESS: Ms. Mahoney is a 68-year-old female with past medical history of COPD, was found to be hypoxic according to the [facility], saturation was dropped to 86% and she was wheezing according to [facility]. The patient also states for the last 2 days she has not been feeling well. Has some body aches, but no fever. Has had headache as well. No chest pain. The patient did not have any nausea or vomiting. She was sent to the hospital because of hypoxia, chest wheezing, possible COPD exacerbation. She was evaluated in the ER, found to have COPD exacerbation as well as positive for influenza B. So, the patient received Solu-Medrol as well as Tamiflu and antibiotics, ceftriaxone with DuoNeb and magnesium sulfate as well. The patient currently feels slightly better. The patient also has cough, which is productive with whitish sputum. PAST MEDICAL HISTORY: 1. COPD. 2. Diabetes mellitus. 3. Chronic diastolic heart failure. 4. Coronary artery disease, history an [place] in 2012. 5. Iron-deficiency anemia. 6. Gastroesophageal reflux disease. 7. Polyneuropathy. 8. History of colon cancer. 9. Hypertension. 10. Hyperlipidemia. PAST SURGICAL HISTORY: 1. Status post stent placement. 2. Status post colon resection. ALLERGIES: ALEVE AND CIPRO. CURRENT MEDICATIONS: The patient is on: 1. Xanax 0.25 b.i.d. 2. Amlodipine 10 mg daily. 3. Aspirin 81 mg daily. 4. Atorvastatin 40 mg daily. 5. Clonidine p.r.n. 6. Ferrous sulfate 325 daily 7. Flonase nasal spray daily. 8. Breo Ellipta inhaler daily. 9. Lasix 20 mg every two days. 10. DuoNeb q.i.d. 11. Lisinopril 10 mg daily. 12. Claritin 10 mg daily. 13. Magnesium oxide 200 b.i.d. 14. Milk of magnesia p.r.n. 15. Metformin 500 b.i.d. 16. Metoprolol 12.5 b.i.d. 17. Multivitamin daily. 18. MiraLAX 17 g daily. 19. Tramadol 50 q.i.d. 20. Trazodone 50 mg at bedtime. 21. Incruse Ellipta one inhaler daily. 22. Zantac 150 b.i.d. FAMILY HISTORY: Nothing contributory. SOCIAL HISTORY: The patient is a resident at [facility]. No history of smoking. No history of alcohol. REVIEW OF SYSTEMS: CARDIOVASCULAR: Has shortness of breath, cough. No chest pain. RESPIRATORY: Has cough, productive of whitish sputum. No fever. GASTROINTESTINAL: No nausea or vomiting. No abdominal pain. CENTRAL NERVOUS SYSTEM: No headache. No dizziness. PHYSICAL EXAMINATION: GENERAL: The patient is alert, awake, oriented x3. VITAL SIGNS: Temperature 98, pulse 90, respiratory rate 20, blood pressure 120/ 60. O2 saturation 96% on 3 L. HEENT: Head is normocephalic, atraumatic. Pupils are equal and reactive. Nasopharynx is pale and dry. Hard and soft palate, no lesions. SKIN: Turgor decreased. NECK: Supple. No JVD. LUNGS: Breath sounds diminished bilaterally. Percussion dull bilaterally. Expiratory wheeze present. GENERAL: S1 and S2, regular. ABDOMEN: Soft. No distention. No tenderness. No organomegaly. Bowel sounds present. RECTAL: Deferred. CENTRAL NERVOUS SYSTEM: No focal deficits. LABORATORY DATA: CBC shows WBC 6.9, hemoglobin 9, hematocrit 29, and platelets 295. Metabolic panel; sodium 140, potassium 4.8, chloride 97, CO2 of 37, BUN 17 , creatinine 1.4, glucose 111. Troponin less than 0.010. Chest x-ray, chronic type findings stable, no pneumonia. EKG shows normal sinus rhythm, no acute ST-T changes seen. ASSESSMENT: 1. Chronic obstructive pulmonary disease with acute exacerbation. 2. Influenza B. 3. Anxiety disorder. 4. Hypertension. 5. Diabetes mellitus. 6. History of diastolic heart failure. 7. Coronary artery disease. 8. Iron-deficiency anemia. 9. Gastroesophageal reflux disease. 10. Polyneuropathy. 11. History of colon cancer. PLAN: 1. Vital signs q.4 hours. 2. Activity as tolerated. 3. Allergies, codeine and Cipro. 4. Hep-Lock. 5. DuoNeb 1 unit q.4 hours. 6. Solu-Medrol 20 IVP q.6 hours. 7. Tamiflu 75 mg b.i.d. 8. Accu-Chek before meals and sliding scale mild with regular insulin. 9. Continue [facility] medications. 10. Diet, ADA and cardiac. Job ID: [id number] MTDD
[2019-03-28] MEDS: Magnesium Oxide 400 MG TAB PO SCH ×2 (09:11→20:14)
[2019-03-28] MEDS: guaiFENesin ER 600 MG TAB PO SCH ×2 (09:11→20:14)
[2019-03-28] MEDS: ALPRAZolam 0.25 MG TAB PO SCH ×2 (09:11→20:14)
[2019-03-28] MEDS: Metoprolol Tartrate 25 MG TAB PO SCH ×2 (09:11→20:15)
[2019-03-28] MEDS: Aspirin 81 mg Enteric Coated Tablet PO SCH (09:11)
[2019-03-28] MEDS: Ferrous Sulfate 325 MG TAB PO SCH ×2 (09:12→17:06)
[2019-03-28] MEDS: metFORMIN 500 MG TAB PO SCH ×2 (09:12→17:06)
[2019-03-28] MEDS: Furosemide 20 MG TAB PO SCH (09:12)
[2019-03-28] MEDS: Multivit, Therapeutic 1 TAB PO SCH (09:12)
[2019-03-28] MEDS: Famotidine 20 MG TAB PO SCH (09:12)
[2019-03-28] MEDS: Lisinopril 10 MG TAB PO SCH (09:12)
[2019-03-28] MEDS: Oseltamivir 75 MG CAP PO SCH ×2 (09:12→20:15)
[2019-03-28] MEDS: Amlodipine 10 MG TAB PO SCH (09:12)
[2019-03-28] MEDS: Loratadine 10 MG TAB PO SCH (09:12)
[2019-03-28] MEDS: Atorvastatin Calcium 40 MG TAB PO SCH (20:14)
[2019-03-28] MEDS: traZODone HCl 50 MG TAB PO SCH (20:16)
[2019-03-29] MEDS: methylPREDNISolone Sod Succ 40 MG VIAL IVP SCH ×4 (05:54→23:34)
[2019-03-29] MEDS: Mometasone/Formoterol 120 PUFF INHALER INH SCH ×2 (06:43→19:23)
[2019-03-29] MEDS: Oseltamivir 75 MG CAP PO SCH ×2 (08:09→20:06)
[2019-03-29] MEDS: metFORMIN 500 MG TAB PO SCH ×2 (08:09→16:32)
[2019-03-29] MEDS: guaiFENesin ER 600 MG TAB PO SCH ×2 (08:09→20:06)
[2019-03-29] MEDS: Loratadine 10 MG TAB PO SCH (08:09)
[2019-03-29] MEDS: Aspirin 81 mg Enteric Coated Tablet PO SCH (08:09)
[2019-03-29] MEDS: Amlodipine 10 MG TAB PO SCH (08:10)
[2019-03-29] MEDS: Multivit, Therapeutic 1 TAB PO SCH (08:10)
[2019-03-29] MEDS: Magnesium Oxide 400 MG TAB PO SCH ×2 (08:10→20:06)
[2019-03-29] MEDS: ALPRAZolam 0.25 MG TAB PO SCH ×2 (08:10→20:05)
[2019-03-29] MEDS: Ferrous Sulfate 325 MG TAB PO SCH ×2 (08:10→16:32)
[2019-03-29] MEDS: Lisinopril 10 MG TAB PO SCH (08:11)
[2019-03-29] MEDS: Metoprolol Tartrate 25 MG TAB PO SCH ×2 (08:11→20:05)
[2019-03-29] MEDS: Famotidine 20 MG TAB PO SCH (08:11)
[2019-03-29] MEDS: HumaLOG 300 UNITS/3 ML VIAL SC PRN ×2 (12:21→16:33)
[2019-03-29] MEDS: traZODone HCl 50 MG TAB PO SCH (20:05)
[2019-03-29] MEDS: Atorvastatin Calcium 40 MG TAB PO SCH (20:06)
[2019-03-30] MEDS: methylPREDNISolone Sod Succ 40 MG VIAL IVP SCH ×4 (05:16→23:33)
[2019-03-30] MEDS: HumaLOG 300 UNITS/3 ML VIAL SC PRN ×3 (05:16→17:13)
[2019-03-30] MEDS: Mometasone/Formoterol 120 PUFF INHALER INH SCH ×2 (07:03→19:44)
[2019-03-30 07:19] LABS: #Lymphocytes 1.1 thou/uL (1.20-3.40); #Monocytes 0.4 thou/uL (0.11-0.59); #Neutrophils 9.2 thou/uL (1.40-6.50); %Basophils 0.1 % (0.0-1.0); %Eosinophils 0.3 % (0.0-10.0); %Monocytes 3.3 % (0.0-10.0); %Neutrophils 86.3 % (42.0-75.0); Hemoglobin 9.7 g/dL (12.0-16.0); Mean Corpuscular HGB CONC 31.1 g/dL (32.0-36.0); Mean Corpuscular Hemoglobin 28.4 pg (27.0-31.0); Mean Corpuscular Volume 91.4 fL (78.0-98.0); Mean Platelet Volume 7.9 fL (7.4-10.4); Platelet Count 274 thou/uL (130-400); RBC Distribution Width 13.4 % (11.5-14.5); Red Blood Cell (RBC) Count 3.42 mill/uL (4.20-5.40); White Blood Cell (WBC) Count 10.7 thou/uL (4.8-10.8)
[2019-03-30 07:42] LABS: Anion Gap 11 mmol/L (10-20); BUN (Urea Nitrogen) 30 mg/dL (9.8-20.1); Calc. Creatinine Clearance 61 mL/min (70-130); Calcium 9.6 mg/dL (7.8-10.44); Carbon Dioxide 37 mmol/L (23-31); Chloride 99 mmol/L (98-107); Estimated GFR-MDRD 45; Glucose 140 mg/dL (80-115); Potassium 4.8 mmol/L (3.5-5.1); Sodium 142 mmol/L (136-145)
[2019-03-30] MEDS: Amlodipine 10 MG TAB PO SCH (07:56)
[2019-03-30] MEDS: metFORMIN 500 MG TAB PO SCH ×2 (07:56→17:12)
[2019-03-30] MEDS: Furosemide 20 MG TAB PO SCH (07:56)
[2019-03-30] MEDS: ALPRAZolam 0.25 MG TAB PO SCH ×2 (07:56→20:26)
[2019-03-30] MEDS: Magnesium Oxide 400 MG TAB PO SCH ×2 (07:56→20:26)
[2019-03-30] MEDS: Aspirin 81 mg Enteric Coated Tablet PO SCH (07:57)
[2019-03-30] MEDS: Oseltamivir 75 MG CAP PO SCH ×2 (07:57→20:26)
[2019-03-30] MEDS: Metoprolol Tartrate 25 MG TAB PO SCH ×2 (07:57→20:26)
[2019-03-30] MEDS: Famotidine 20 MG TAB PO SCH (07:57)
[2019-03-30] MEDS: Lisinopril 10 MG TAB PO SCH (07:57)
[2019-03-30] MEDS: guaiFENesin ER 600 MG TAB PO SCH ×2 (07:57→20:27)
[2019-03-30] MEDS: Loratadine 10 MG TAB PO SCH (07:58)
[2019-03-30] MEDS: Ferrous Sulfate 325 MG TAB PO SCH ×2 (07:58→17:12)
[2019-03-30] MEDS: Multivit, Therapeutic 1 TAB PO SCH (07:58)
[2019-03-30] MEDS: traZODone HCl 50 MG TAB PO SCH (20:26)
[2019-03-30] MEDS: Atorvastatin Calcium 40 MG TAB PO SCH (20:26)
[2019-03-31] MEDS: methylPREDNISolone Sod Succ 40 MG VIAL IVP SCH ×3 (05:10→17:02)
[2019-03-31] MEDS: HumaLOG 300 UNITS/3 ML VIAL SC PRN ×3 (05:11→21:21)
[2019-03-31] MEDS: Mometasone/Formoterol 120 PUFF INHALER INH SCH ×2 (06:32→19:38)
[2019-03-31] MEDS: Aspirin 81 mg Enteric Coated Tablet PO SCH (08:27)
[2019-03-31] MEDS: Ferrous Sulfate 325 MG TAB PO SCH ×2 (08:27→16:20)
[2019-03-31] MEDS: Lisinopril 10 MG TAB PO SCH (08:27)
[2019-03-31] MEDS: metFORMIN 500 MG TAB PO SCH ×2 (08:27→16:20)
[2019-03-31] MEDS: Amlodipine 10 MG TAB PO SCH (08:27)
[2019-03-31] MEDS: Oseltamivir 75 MG CAP PO SCH ×2 (08:27→21:15)
[2019-03-31] MEDS: Magnesium Oxide 400 MG TAB PO SCH ×2 (08:27→21:13)
[2019-03-31] MEDS: ALPRAZolam 0.25 MG TAB PO SCH ×2 (08:27→21:12)
[2019-03-31] MEDS: Multivit, Therapeutic 1 TAB PO SCH (08:27)
[2019-03-31] MEDS: guaiFENesin ER 600 MG TAB PO SCH ×2 (08:28→21:13)
[2019-03-31] MEDS: Loratadine 10 MG TAB PO SCH (08:28)
[2019-03-31] MEDS: Metoprolol Tartrate 25 MG TAB PO SCH ×2 (08:28→21:17)
[2019-03-31] MEDS: Famotidine 20 MG TAB PO SCH (08:28)
[2019-03-31] MEDS: Fluticasone Propionate Nasal Spray 16 gm Bottle NASAL PRN (08:28)
[2019-03-31] MEDS: traZODone HCl 50 MG TAB PO SCH (21:12)
[2019-03-31] MEDS: Atorvastatin Calcium 40 MG TAB PO SCH (21:13)
[2019-04-01] MEDS: Mometasone/Formoterol 120 PUFF INHALER INH SCH (07:50)
[2019-04-01] MEDS ORDERED: predniSONE 20 MG TAB PO SCH (08:00)
[2019-04-01] MEDS: ALPRAZolam 0.25 MG TAB PO SCH (08:20)
[2019-04-01] MEDS: Aspirin 81 mg Enteric Coated Tablet PO SCH (08:20)
[2019-04-01] MEDS: Ferrous Sulfate 325 MG TAB PO SCH (08:20)
[2019-04-01] MEDS: Magnesium Oxide 400 MG TAB PO SCH (08:21)
[2019-04-01] MEDS: Famotidine 20 MG TAB PO SCH (08:23)
[2019-04-01] MEDS: Amlodipine 10 MG TAB PO SCH (08:24)
[2019-04-01] MEDS: Lisinopril 10 MG TAB PO SCH (08:24)
[2019-04-01] MEDS: Loratadine 10 MG TAB PO SCH (08:25)
[2019-04-01] MEDS: Furosemide 20 MG TAB PO SCH (08:25)
[2019-04-01] MEDS: Oseltamivir 75 MG CAP PO SCH (08:25)
[2019-04-01] MEDS: Metoprolol Tartrate 25 MG TAB PO SCH (08:26)
[2019-04-01] MEDS: Multivit, Therapeutic 1 TAB PO SCH (08:27)
[2019-04-01] MEDS: guaiFENesin ER 600 MG TAB PO SCH (08:27)
[2019-04-01] MEDS: metFORMIN 500 MG TAB PO SCH (08:27)
[2019-04-01 13:57] VITALS: BP 123/68; TEMP 97.1
--- NOTE | 2019-04-02 13:03 | DIS ---
DATE OF ADMISSION: 03/27/2019 DATE OF DISCHARGE: 04/01/2019 ADMITTING DIAGNOSES: 1. Chronic obstructive pulmonary disease with acute exacerbation. 2. Influenza B infection. 3. Anxiety disorder. 4. Hypertension. 5. Diabetes mellitus. 6. Coronary artery disease. 7. History of diastolic heart failure. 8. Iron-deficiency anemia. 9. Polyneuropathy. 10. Gastroesophageal reflux disease. FINAL DIAGNOSES: 1. Chronic obstructive pulmonary disease, acute exacerbation. Improved. 2. Influenza B infection, treated. 3. Generalized weakness, improved. 4. Unstable gait, improved. 5. Hypertension. 6. Diabetes mellitus. 7. Diastolic heart failure by history. 8. Coronary artery disease. 9. Chronic anemia. BRIEF SUMMARY OF HOSPITAL COURSE: Ms. Mahoney is a 68-year-old female admitted because of shortness of breath, cough, weakness, and fever. The patient was found to have COPD exacerbation. She was started on IV Solu-Medrol and DuoNeb treatments. She was also found to be having influenza B infection, so she was started Tamiflu as well. The patient slowly improved in the next few days. Her weakness gradually improved. She started to eat better. Initially, she had unstable gait, but she was able to ambulate later on. She did not have any more fever in the hospital. Her Solu-Medrol dose was decreased and changed to prednisone. In view of improvement, the patient was discharged. At the time of discharge, she was stable, her vital signs stable, lungs clear, heart sounds regular, abdomen is soft and nontender. Bowel sounds present. DISCHARGE MEDICATIONS: 1. Aspirin 81 mg daily. 2. Ferrous sulfate 325 b.i.d. 3. Trazodone 50 mg at bedtime. 4. Metoprolol 12.5 b.i.d. 5. Atorvastatin 40 mg at bedtime. 6. Metformin 500 b.i.d. 7. Milk of magnesia p.r.n. 8. MiraLAX 17 g daily. 9. Multivitamin daily. 10. Loratadine 10 mg daily. 11. Xanax 0.25 b.i.d. 12. Lasix 20 mg every 2 days. 13. Clonidine p.r.n. 14. Lisinopril 10 mg b.i.d. 15. Amlodipine 10 mg daily. 16. Tylenol p.r.n. 17. Albuterol inhaler 2 puffs q.i.d. 18. DuoNeb q.i.d. 19. Flonase nasal spray daily. 20. Menthol Biofreeze daily. 21. Incruse Ellipta one inhaler daily. 22. Breo Ellipta one inhaler daily. 23. Imodium p.r.n. 24. Maalox p.r.n. 25. Proventil inhaler p.r.n. 26. Prednisone 40 mg daily for three days, 30 mg daily for three days, 20 mg daily for three days and 10 mg daily for three days. 27. Pepcid 20 mg daily. FOLLOWUP: The patient will be followed up in [facility]. Job ID: [id number]
== END 2019-04-01 16:06 | DRG 191 ==
LOC: ERS 11:28 → T4-A 18:19
PROVIDERS: ADMIT Internal Medicine; ATTEND Internal Medicine
DX: J44.1 Chronic obstructive pulmonary disease with (acute) exacerbation (principal); C18.9 Malignant neoplasm of colon, unspecified; I50.32 Chronic diastolic (congestive) heart failure; I25.10 Atherosclerotic heart disease of native coronary artery without angina pectoris; D50.9 Iron deficiency anemia, unspecified; E11.42 Type 2 diabetes mellitus with diabetic polyneuropathy; F32.9 Major depressive disorder, single episode, unspecified; K21.9 Gastro-esophageal reflux disease without esophagitis; J10.1 Influenza due to other identified influenza virus with other respiratory manifestations; I11.0 Hypertensive heart disease with heart failure; F41.9 Anxiety disorder, unspecified; R26.9 Unspecified abnormalities of gait and mobility; E78.5 Hyperlipidemia, unspecified; I25.2 Old myocardial infarction; Z95.5 Presence of coronary angioplasty implant and graft; Z79.4 Long term (current) use of insulin; Z88.1 Allergy status to other antibiotic agents; Z88.8 Allergy status to other drugs, medicaments and biological substances; Z90.49 Acquired absence of other specified parts of digestive tract
CPT/HCPCS: 36415; 36416; 71045; 80048; 80053; 83690; 84484; 85025; 87040; 87149; 87804; 93005; 94640; 96361; 96365; 96367; J0456; J0696; J2920; J3475; J7512; J7620

== ENCOUNTER 2019-04-30 09:09 | Outpatient (CLI) | payer MEDICARE, MEDICAID ==
--- NOTE | 2019-04-30 10:09 | CT ---
EXAM: CT of the chest without contrast HISTORY: Chest pain COMPARISON: 10/25/2018 TECHNIQUE: Multiple contiguous axial images were obtained in a CT the chest without contrast. Coronal and sagittal reformats were performed. FINDINGS: HEART: Normal in size without focal cardiac abnormality. Calcifications in the coronary arteries and aorta. MEDIASTINUM: No hilar or mediastinal lymphadenopathy. Evaluation of the mediastinum is limited withou t IV contrast. LUNGS: Emphysematous changes are seen in the lungs. There is stable central hilar nonmasslike soft ti ssue density in the right lower lobe. A nodule is seen along the right heart border in the right middle lobe measuring 1.2 cm in size. PLEURAL SPACE: No pneumothorax or pleural effusion. CHEST WALL SOFT TISSUES: Unremarkable OSSEOUS STRUCTURES: Unremarkable VISUALIZED SUBDIAPHRAGMATIC STRUCTURES: Unremarkable IMPRESSION: Stable findings in the right middle and lower lobe of the lungs.
== END 2019-04-30 09:10 | disposition home or self-care (01) ==
LOC: BICCT 09:09
PROVIDERS: ATTEND Radiology Radiation Oncology
DX: C34.90 Malignant neoplasm of unspecified part of unspecified bronchus or lung (principal)
CPT/HCPCS: 71250

== ENCOUNTER 2019-05-01 12:55 | Emergency (ER) | payer MEDICARE, MEDICAID ==
--- NOTE | 2019-05-01 14:03 | RAD ---
EXAM: Chest 2 views: HISTORY: Dyspnea COMPARISON: 08/21/2018 FINDINGS: There is a normal-sized cardiomediastinal silhouette. There is no evidence of consolidation, mass, or pleural effusion. Degenerative changes are seen in the spine. IMPRESSION: No evidence of acute cardiopulmonary disease
[2019-05-01 14:07] LABS: Bilirubin Negative (Negative); Blood, Urine Negative (Negative); Clarity Clear (Clear); Glucose, Urine (Dipstick) Normal (Negative); Leukocyte Negative Leu/uL (Negative); Nitrite Negative (Negative); Protein, Urine (Dipstick) Negative (Neg-Trace); Urobilinogen Normal mg/dL (Less than 2)
[2019-05-01 14:16] LABS: #Eosinphils 0.2 thou/uL (0.0-0.7); #Lymphocytes 0.7 thou/uL (1.20-3.40); #Monocytes 0.4 thou/uL (0.11-0.59); %Basophils 0.5 % (0.0-1.0); %Eosinophils 3.8 % (0.0-10.0); %Lymphocytes 17.1 % (21.0-51.0); %Neutrophils 69.7 % (42.0-75.0); Hemoglobin 9.9 g/dL (12.0-16.0); Mean Corpuscular HGB CONC 29.6 g/dL (32.0-36.0); Mean Corpuscular Hemoglobin 27.1 pg (27.0-31.0); Mean Corpuscular Volume 91.4 fL (78.0-98.0); Mean Platelet Volume 7.9 fL (7.4-10.4); Platelet Count 215 thou/uL (130-400); RBC Distribution Width 13.8 % (11.5-14.5); Red Blood Cell (RBC) Count 3.64 mill/uL (4.20-5.40); White Blood Cell (WBC) Count 4.3 thou/uL (4.8-10.8)
[2019-05-01 14:48] LABS: ALT (SGPT) 21 U/L (8-55); AST (SGOT) 15 U/L (5-34); Albumin 4.1 g/dL (3.4-4.8); Alkaline Phosphatase 88 U/L (40-110); BUN (Urea Nitrogen) 15 mg/dL (9.8-20.1); Bilirubin, Total 0.4 mg/dL (0.2-1.2); Calc. Creatinine Clearance 0 mL/min (70-130); Calcium 10.1 mg/dL (7.8-10.44); Estimated GFR-MDRD 37; Globulin 2.2 g/dL (2.4-3.5); Glucose 96 mg/dL (83-110); Hypochromia SLIGHT = 6-15 cells (100X) (0-5/hpf); MDiff Complete? YES; Ovalocytes SLIGHT = 2-5 cells (100X) (0-1/hpf); Platelet Morphology Comment Appears Adequate; Polychromasia SLIGHT = 2-3 cells (100X) (0-2/hpf); Protein, Total 6.3 g/dL (6.0-8.3); Tear Drops SLIGHT = 2-5 cells (100X) (0-1/hpf)
[2019-05-01 14:58] LABS: Anion Gap 15 mmol/L (10-20); Carbon Dioxide 36 mmol/L (23-31); Chloride 98 mmol/L (98-107); Sodium 144 mmol/L (136-145)
== END 2019-05-01 15:56 | disposition home or self-care (01) ==
LOC: ERS 12:55
DX: J11.1 Influenza due to unidentified influenza virus with other respiratory manifestations (principal); J44.9 Chronic obstructive pulmonary disease, unspecified; I25.2 Old myocardial infarction; I25.10 Atherosclerotic heart disease of native coronary artery without angina pectoris; D50.9 Iron deficiency anemia, unspecified; K21.9 Gastro-esophageal reflux disease without esophagitis; E11.42 Type 2 diabetes mellitus with diabetic polyneuropathy; E78.5 Hyperlipidemia, unspecified; I10 Essential (primary) hypertension; F41.9 Anxiety disorder, unspecified; F32.9 Major depressive disorder, single episode, unspecified; Z87.891 Personal history of nicotine dependence; Z79.51 Long term (current) use of inhaled steroids; Z79.84 Long term (current) use of oral hypoglycemic drugs; Z79.899 Other long term (current) drug therapy
CPT/HCPCS: 36415; 71046; 80053; 81003; 84484; 85025; 87804; 94640; J7620

== ENCOUNTER 2019-11-10 13:51 | Outpatient (CLI) | payer MEDICARE, MEDICAID ==
--- NOTE | 2019-11-10 15:05 | CT ---
CT CHEST WITHOUT CONTRAST CLINICAL INDICATION: Lung cancer diagnosed 2 years ago. Patient is post radiation therapy. Restaging evaluation. Malignant neoplasm of bronchus. COMPARISON: 04/30/2019 FINDINGS: Aorta: Lack of intravenous contrast limits evaluation of vascular structures. Vascular calcifications are seen in the thoracic aorta as well as involving the coronary arteries. Lungs: Emphysematous changes are again seen throughout the lungs bilaterally with areas of scarring s een in the right upper lobe with mild calcified biapical pleural thickening. There are stable reticulonodular densities in the posterior aspect right upper lobe. The linear and p arenchymal densities in the right lower lobe with subcentimeter nodular density lateral aspect right lower lobe are again seen and stable when compared to the prior exam and also unchanged compare d to study on 10/25/2018. However, there has been interval development of a spiculated and wedge-shaped nodular density in the right middle lobe which measures 2.6 cm x 1.8 cm in greatest axia l dimensions. There are stable mild linear densities also seen in the right middle lobe likely related to areas of scarring. There is a calcified granuloma in the left lower lobe. A 6 mm too small to characterize pleural based nodular density is seen at the posteromedial left lung base with mild linear atelectasis in the lingula. Mediastinum: Lack of intravenous contrast limits evaluation for mediastinal structures, but no defini te enlarged lymph node is seen. Thyroid gland: Grossly within normal limits for nonenhanced appearance. Osseous structures: No acute process. Chest wall: No abnormality visualized. Upper abdomen: There has been interval increase in calcification of a portion of the wall the gallbla dder when compared to CT abdomen on 05/05/2017. The right kidney is not visualized. There is scarring involving the posterior aspect of the visualized mid portion and superior pole left kidney w hich was also seen on prior exam. Vascular calcifications are seen in the abdominal aorta and involving the mesenteric vessels and visualized left renal artery. IMPRESSION: 1. Interval development of a spiculated nodular density in the right middle lobe. Findings are worris ome for neoplastic process. PET/CT examination is recommended for further evaluation. 2. Chronic lung changes overall similar to prior exam. 3. Increase in calcifications involving the wall of the gallbladder suggesting developing porcelain g allbladder. 4. Absence of the right kidney with scarring involving the visualized posterior aspect left kidney. 5. Prominent vascular calcifications.
== END 2019-11-10 13:52 | disposition home or self-care (01) ==
LOC: BICCT 13:51
PROVIDERS: ATTEND Radiology Radiation Oncology
DX: C34.91 Malignant neoplasm of unspecified part of right bronchus or lung (principal); J98.4 Other disorders of lung; I70.90 Unspecified atherosclerosis; K82.8 Other specified diseases of gallbladder; Z90.5 Acquired absence of kidney; Z92.3 Personal history of irradiation
CPT/HCPCS: 71250

== ENCOUNTER 2020-02-23 11:16 | Inpatient (IN) | payer MEDICARE, MEDICAID ==
[~2020-02-23 11:16] MED LIST: Iopamidol-370 76% 500 ML 1 ML ONE
[2020-02-23] MEDS ORDERED: Magnesium 2 GM/50 ML BAG (IN WATER) ONE (11:49)
[2020-02-23] MEDS ORDERED: Dexamethasone 10 MG/ML VIAL ONE (11:49)
[2020-02-23] MEDS ORDERED: Albuterol Sulfate 2.5 mg/3 ml Neb ONE (11:56)
[2020-02-23 11:57] LABS: #Eosinphils 0.2 thou/uL (0.0-0.7); #Lymphocytes 1.4 thou/uL (1.20-3.40); #Monocytes 0.5 thou/uL (0.11-0.59); #Neutrophils 5.1 thou/uL (1.40-6.50); %Basophils 0.7 % (0.0-1.0); %Eosinophils 2.3 % (0.0-10.0); %Lymphocytes 19.2 % (21.0-51.0); %Monocytes 7.1 % (0.0-10.0); %Neutrophils 70.8 % (42.0-75.0); Hemoglobin 10.2 g/dL (12.0-16.0); Mean Corpuscular HGB CONC 31.9 g/dL (32.0-36.0); Mean Corpuscular Hemoglobin 30.7 pg (27.0-31.0); Mean Corpuscular Volume 96.3 fL (78.0-98.0); Mean Platelet Volume 7.9 fL (7.4-10.4); Platelet Count 212 thou/uL (130-400); RBC Distribution Width 12.3 % (11.5-14.5); Red Blood Cell (RBC) Count 3.34 mill/uL (4.20-5.40); White Blood Cell (WBC) Count 7.2 thou/uL (4.8-10.8)
[2020-02-23 12:08] LABS: Actual Bicarbonate (HCO3a) 39.4 mEq/L (22-28); Analyzer IN Cardio ER; Base Excess (BEa) 10.8 mEq/L (-2.0 to +3.0); Calcium, Ionized (arterial) 1.18 mmol/L (1.12-1.30); Carboxyhemoglobin (COHb) 0.3 gm% (0.0-3.0); Hemoglobin (Hb) 10.7 g/dL (12.0-16.0); O2 Tension (PaO2), arterial 105.4 mmHg (> 70.0); Potassium - ABG Lab 4.72 mmol/L (3.70-5.30); pH, Arterial 7.32 (7.35-7.45)
[2020-02-23 12:13] LABS: CO2 Tension 78.6 mmHg (35.0-45.0); Puncture Site LRA
[2020-02-23 12:24] LABS: ALT (SGPT) 16 U/L (8-55); AST (SGOT) 15 U/L (5-34); Albumin 3.8 g/dL (3.4-4.8); Alkaline Phosphatase 114 U/L (40-110); BUN (Urea Nitrogen) 19 mg/dL (9.8-20.1); Bilirubin, Total 0.4 mg/dL (0.2-1.2); CK (CPK) 114 U/L (29-168); Calc. Creatinine Clearance 0 mL/min (70-130); Calcium 9.2 mg/dL (7.8-10.44); Estimated GFR-MDRD 38; Globulin 2.9 g/dL (2.4-3.5); Glucose 95 mg/dL (83-110); Lipase 30 U/L (8-78); Protein, Total 6.7 g/dL (6.0-8.3)
[2020-02-23 12:38] LABS: Anion Gap 14 mmol/L (10-20); Carbon Dioxide 36 mmol/L (23-31); Chloride 98 mmol/L (98-107); Sodium 143 mmol/L (136-145)
--- NOTE | 2020-02-23 12:45 | RAD ---
Exam: Chest one view HISTORY:Sore throat Comparison: 03/27/2019, 05/01/2019 FINDINGS: Cardiac silhouette:Cardiomegaly. Aorta: Atherosclerotic Pulmonary vessels: Normal Costophrenic angles: Clear LUNGS: Inflation with chronic lung parenchymal changes. Stable emphysema in both upper lobes. Pneumothorax: None Osseous abnormalities: None IMPRESSION: 1. Cardiomegaly. No evidence of congestive heart failure 2. Atherosclerosis 3. Emphysema with chronic changes in the lung bases. There are irregular marginated densities in the middle lobe and right lower lobe which have corresponding radiographic findings of the current study. The opacities are better demonstrated on a CT from 11/10/2019
[2020-02-23] MEDS ORDERED: cefTRIAXone\\ROCEPHIN 2 GM VIAL ONE (14:12)
--- NOTE | 2020-02-23 14:16 | CT ---
CTA Angio Chest W WO Con History: Sore throat and chest pain Comparison: Chest radiograph same day Findings: No proximal segmental pulmonary arterial filling defect. Heart size mildly enlarged. Pulmon sloan trunk is mildly enlarged as well as the left and right main pulmonary arteries. No significant pericardial effusion. The gallbladder has extensive peripheral calcifications and is m ildly distended. Moderate narrowing of the celiac trunk and superior mesenteric artery ostia due to calcific and soft plaque. Severe background emphysema. Similar appearance of the 1.5 cm nodule right middle lobe. The periphera l jugular shaped opacity along the right middle lobe is also relatively similar likely posttreatment in nature. No new suspicious pulmonary nodule. No pneumothorax or effusion. No suspicious osteolytic or osteoblastic lesions. Sternum and manubrium are intact. Impression: 1. No pulmonary embolism. 2. Likely posttreatment changes of the right middle and right lower lobe without significant change. 3. Severe background emphysema. 4. Pulmonary hypertension. 5. Peripherally calcified distended gallbladder for which nonemergent surgical consultation is advise d. 6. Mildly enlarged right hilar lymph node for which close attention on follow-up imaging is recommend ed.
[2020-02-23] MEDS ORDERED: Azithromycin 500 MG VIAL ONE (15:30)
--- NOTE | 2020-02-23 15:47 | PDOC.HHP ---
Hospitalist HPI - History of Present Illness Shortness of breath, sore throat History of Present Illness: This is a 69-year-old female patient with a history of COPD, colon cancer, hypertension, diabetes mellitus, coronary disease, anxiety disorder diastolic heart failure who presents today with sore throat and ongoing worsening shortness of breath. Patient was last seen here earlier this year managed for COPD exacerbation. For the past couple of weeks she has noticed increasing cough and reduction in her oxygen saturation to the low 90S, shortness of breath and soreness in her throat. She was was started on doxycycline to no avail. She had a Covid test about 4 days ago which was negative. She also have cough above her baseline which is productive of scant nonbloody sputum. She denies any associated fevers. She however notes ongoing intermittent swelling of her feet. Presentation respiratory rate was 20 required saturating at 99 on 3 L. Her vitals were within normal limits. Labs showed pH 7.32, PCO2 78.6. Bicarb was 36. D-dimer was checked which was elevated at 0.69 and she had a follow-up CT a which showed pulmonary hypertension, severe emphysema however no other acute process. Chest x-ray was generally unremarkable. She was started on BiPAP for hypercapnia azithromycin and ceftriaxone with DuoNeb's. She also received magnesium sulfate. Hospitalist team consulted for admission. Hospitalist ROS - Review of Systems Constitutional: denies: fever, chills, sweats Respiratory: reports: cough, dry, shortness of breath, SOB with excertion. denies: hemoptysis Cardiovascular: denies: chest pain, palpitations, orthopnea, paroxysmal noc. dyspnea Gastrointestinal: denies: nausea, vomiting, abdominal pain Genitourinary: denies: dysuria, frequency Neurological: denies: weakness, numbness, incoordination - Medication Medications: Kindly refer to ambulatory medication list. Allergies: Ciprofloxacin, naproxen Hospitalist History - Past Medical History Cardiac: reports: HTN Pulmonary: reports: COPD Other Medical History: Colon cancer, lung cancer: Cancer, polyneuropathy, GERD - Past Surgical History Other Surgical History: Colonic surgery - Family History Family History: reports: diabetes mellitus - Social History Smoking Status: Never smoker Alcohol: reports: None Living Situation: With Family - Exam General Appearance: awake alert General - other findings: BiPAP in place Eye: PERRL, anicteric sclera Heart: RRR, no murmur, no gallops Respiratory - other findings: Reduced air entry bilaterally. No rhonchi or ral es Gastrointestinal: soft, non-tender, non-distended, normal bowel sounds Extremities - other findings: Bilateral lower limb edema worse on the left Neurological: cranial nerve grossly intact, no focal deficits Psychiatric: normal affect, normal behavior, A&O x 3 Hospitalist Results - Labs Result Diagrams: 02/23/20 11:47 02/23/20 11:47 Lab results: WBC 7.2 thou/uL (4.8-10.8) 02/23/20 11:47 Hgb 10.2 g/dL (12.0-16.0) L 02/23/20 11:47 Hct 32.1 % (36.0-47.0) L 02/23/20 11:47 MCV 96.3 fL (78.0-98.0) 02/23/20 11:47 Plt Count 212 thou/uL (130-400) 02/23/20 11:47 Neutrophils % 70.8 % (42.0-75.0) 02/23/20 11:47 ABG pH 7.32 (7.35-7.45) L 02/23/20 11:55 ABG pCO2 78.6 mmHg (35.0-45.0) H* 02/23/20 11:55 ABG pO2 105.4 mmHg (> 70.0) H 02/23/20 11:55 Sodium 143 mmol/L (136-145) 02/23/20 11:47 Potassium 5.0 mmol/L (3.5-5.1) 02/23/20 11:47 Chloride 98 mmol/L (98-107) 02/23/20 11:47 Carbon Dioxide 36 mmol/L (23-31) H 02/23/20 11:47 BUN 19 mg/dL (9.8-20.1) 02/23/20 11:47 Creatinine 1.36 mg/dL (0.6-1.1) H 02/23/20 11:47 Glucose 95 mg/dL (83-110) 02/23/20 11:47 Lactic Acid 1.3 mmol/L (0.5-2.2) 02/23/20 13:04 Calcium 9.2 mg/dL (7.8-10.44) 02/23/20 11:47 Total Bilirubin 0.4 mg/dL (0.2-1.2) 02/23/20 11:47 AST 15 U/L (5-34) 02/23/20 11:47 ALT 16 U/L (8-55) 02/23/20 11:47 Alkaline Phosphatase 114 U/L (40-110) H 02/23/20 11:47 Creatine Kinase 114 U/L (29-168) 02/23/20 11:47 Troponin I Less than 0.010 ng/mL (< 0.028) 02/23/20 11:47 B-Natriuretic Peptide 66.5 pg/mL (0-100) 02/23/20 11:47 Serum Total Protein 6.7 g/dL (6.0-8.3) 02/23/20 11:47 Albumin 3.8 g/dL (3.4-4.8) 02/23/20 11:47 Lipase 30 U/L (8-78) 02/23/20 11:47 Hospitalist H&P A/P - Plan Plan: This is a 69-year-old female patient with a history of COPD, diabetes mellitus hypertension presenting sore throat, worsening shortness of breath and cough likely COPD exacerbation. Acute hypercarbic respiratory failure Bicarb elevated at 78 with hypoxia requiring oxygen. Currently on BiPAPwe will continue Duo nebs, steroids, Antibioticsazithromycin/ceftriaxone Admit to IMCU for BiPAP and monitor. Repeat ABG Pulmonology consult. Acute COPD exacerbation Currently on triple therapy Treatment as above. Received Decadron in the ED Duo nebs, antibiotics, steroids We will continue azithromycin 500 mg Resume home medications once verified Pulmonary hypertension Noted on CT scan Consider pulmonology evaluation Order echocardiogram Bilateral leg swelling Worse and tender on the left. Possibly heart failure/pulmonary hypertension Scan to rule out DVT Echocardiogram Perihilar gallbladder calcification Consider surgery evaluation in a.m. May need post discharge follow-up monitoring Lung cancer Follow-up with oncologist once acute events resolve Diabetes mellitus Correctional insulin. GERD VT prophylaxisLovenox CODE STATUSfull code
[2020-02-23 16:24] VITALS: BMI 30.2
[2020-02-23 16:34] LABS: Actual Bicarbonate (HCO3a) 31.7 mEq/L (22-28); Base Excess (BEa) 4.4 mEq/L (-2.0 to +3.0); Calcium, Ionized (arterial) 1.15 mmol/L (1.12-1.30); Carboxyhemoglobin (COHb) 0.1 gm% (0.0-3.0); Hemoglobin (Hb) 11.5 g/dL (12.0-16.0); Potassium - ABG Lab 4.83 mmol/L (3.70-5.30); pH, Arterial 7.33 (7.35-7.45)
[2020-02-23] MEDS ORDERED: Dextrose 50% Abboject 50 ML SYRINGE SLOW IVP PRN ×2 (16:38→23:03)
[2020-02-23] MEDS ORDERED: Dextrose 5% in Water 1,000 ML IV PRN ×2 (16:38→23:03)
[2020-02-23 16:46] LABS: Troponin I Less than 0.010 ng/mL (< 0.028)
[2020-02-23 16:47] LABS: CO2 Tension 61.6 mmHg (35.0-45.0)
[2020-02-23 16:48] LABS: O2 Tension (PaO2), arterial 55.3 mmHg (> 70.0); Puncture Site LR
--- NOTE | 2020-02-23 17:04 | ULT ---
EXAM: Bilateral lower extremity venous ultrasound HISTORY: Left lower extremity edema COMPARISON: None TECHNIQUE: Multiplanar grayscale and color Doppler images were obtained in a bilateral lower extremit y venous ultrasound. Spectral analysis of the Doppler waveforms were performed. FINDINGS: The bilateral common femoral vein, profunda femoral veins, superficial femoral veins, and p opliteal veins are normal in appearance without visible thrombus. These vessels demonstrate normal compression, flow, and augmentation. The bilateral posterior tibial veins and greater saphenous veins are patent without evidence of throm bus. IMPRESSION: No evidence of DVT.
[2020-02-23 19:39] LABS: Troponin I Less than 0.010 ng/mL (< 0.028)
[2020-02-23] MEDS ORDERED: Amlodipine 5 MG TAB PO SCH (21:45)
[2020-02-23] MEDS: ALPRAZolam 0.25 MG TAB PO SCH ×2 (23:12→23:53)
[2020-02-24 03:57] LABS: #Lymphocytes 0.7 thou/uL (1.20-3.40); #Monocytes 0.2 thou/uL (0.11-0.59); #Neutrophils 5.8 thou/uL (1.40-6.50); %Basophils 0.3 % (0.0-1.0); %Eosinophils 0.2 % (0.0-10.0); %Monocytes 2.6 % (0.0-10.0); %Neutrophils 86.9 % (42.0-75.0); Hemoglobin 10.1 g/dL (12.0-16.0); Mean Corpuscular HGB CONC 32.3 g/dL (32.0-36.0); Platelet Count 210 thou/uL (130-400); RBC Distribution Width 12.4 % (11.5-14.5); Red Blood Cell (RBC) Count 3.26 mill/uL (4.20-5.40); White Blood Cell (WBC) Count 6.7 thou/uL (4.8-10.8)
[2020-02-24 04:16] LABS: Anion Gap 12 mmol/L (10-20); BUN (Urea Nitrogen) 23 mg/dL (9.8-20.1); Calc. Creatinine Clearance 52 mL/min (70-130); Calcium 9.2 mg/dL (7.8-10.44); Carbon Dioxide 36 mmol/L (23-31); Chloride 99 mmol/L (98-107); Estimated GFR-MDRD 39; Glucose 164 mg/dL (83-110); Potassium 5.1 mmol/L (3.5-5.1); Sodium 142 mmol/L (136-145)
[2020-02-24] MEDS: HumaLOG 300 UNITS/3 ML VIAL SC PRN ×2 (05:31→21:29)
[2020-02-24] MEDS: Enoxaparin Sodium 40 MG/0.4 ML SYRINGE SC SCH (09:13)
[2020-02-24] MEDS: Azithromycin 500 MG in Sodium Chloride 0.9% 250 ML 250 ML IVPB SCH (09:13)
[2020-02-24] MEDS: ALPRAZolam 0.25 MG TAB PO SCH ×2 (09:13→20:24)
[2020-02-24] MEDS: methylPREDNISolone Sod Succ 40 MG VIAL IVP SCH (09:14)
[2020-02-24] MEDS ORDERED: Calcium Carbonate 500 MG ChewTAB PO PRN (09:48)
[2020-02-24] MEDS ORDERED: cloNIDine 0.1 MG TAB PO PRN (09:48)
[2020-02-24] MEDS ORDERED: Mag-Al 1200 mg/1200 mg/30 ML UDCUP PO PRN (09:48)
[2020-02-24] MEDS ORDERED: Ondansetron ODT 4 MG TAB PO PRN (09:48)
[2020-02-24] MEDS ORDERED: Polyethylene Glycol 3350 17 GM Packet PO PRN (09:48)
[2020-02-24] MEDS ORDERED: traMADol HCl 50 MG TAB PO PRN (09:48)
[2020-02-24] MEDS ORDERED: Fluticasone Propionate Nasal Spray 16 gm Bottle NASAL PRN (09:48)
--- NOTE | 2020-02-24 09:55 | PDOC.HOSPP ---
- Subjective Encounter Date: 02/24/20 Encounter Time: 09:52 Subjective: Ms. Mahoney was seen today in follow-up of COPD exacerbation. She says she is feeling a little better today. She notes some sore throat. She is on Home oxygen at 3 liters, and is about at her baseline. - Objective Vital Signs & Weight: Vital Signs (12 hours) Temp BP Pulse Ox 02/24/20 08:17 100 02/24/20 07:29 97.4 F L 02/24/20 07:22 100 02/24/20 06:26 97.0 F L 02/24/20 00:01 97.6 F 02/23/20 23:33 171/79 H Weight Weight 187 lb 6.287 oz Most Recent Monitor Data Heart Rate from ECG 72 NIBP 130/52 NIBP BP-Mean 78 Respiration from ECG 19 SpO2 100 I&O: 02/23/20 02/24/20 02/25/20 06:59 06:59 06:59 Intake Total 1100 Output Total 1750 Balance -650 Result Diagrams: 02/24/20 03:31 02/24/20 03:31 Additional Labs: Accuchecks 02/24/20 05:24 POC Glucose 151 H Hospitalist ROS - Medication Medications: Active Medications Generic Name Dose Route Start Last Admin Trade Name Freq PRN Reason Stop Dose Admin Albuterol/Ipratropium 3 ml 02/23/20 16:43 02/23/20 19:13 Ipratropium/Albuterol Sulfate 3 Ml Neb NEB 3 ml [id number] PRN Administration SOB &/or Wheezing Alprazolam 0.5 mg 02/23/20 09:00 02/24/20 09:13 Alprazolam 0.25 Mg Tab PO 0.5 mg BID UCHE Administration Enoxaparin Sodium 40 mg 02/24/20 09:00 02/24/20 09:13 Enoxaparin Sodium 40 Mg/0.4 Ml Syringe SC 40 mg 0900 UCHE Administration Azithromycin 500 mg/ Sodium 250 mls @ 250 mls/hr 02/24/20 09:00 02/24/20 09:13 Chloride IVPB 250 mls Q24HR UCHE Administration Insulin Human Lispro 0 units 02/23/20 16:38 02/24/20 05:31 Humalog 300 Units/3 Ml Vial SC 2 unit .MILD SLIDING SCALE PRN Administration Mild Correctional Scale Methylprednisolone Sodium Succinate 40 mg 02/24/20 09:00 02/24/20 09:14 Methylprednisolone Sod Succ 40 Mg Vial IVP 40 mg DAILY UCHE Administration - Exam Eye: PERRL, anicteric sclera Heart: RRR, no murmur, no gallops, no rubs, normal peripheral pulses Respiratory: CTAB, no wheezes, no rales Respiratory - other findings: poor air movement Gastrointestinal: soft, non-tender, non-distended, normal bowel sounds, no palpable masses, no hepatomegaly Extremities: no cyanosis, no edema Hosp A/P (1) Acute and chronic respiratory failure with hypoxia Code(s): J96.21 - ACUTE AND CHRONIC RESPIRATORY FAILURE WITH HYPOXIA Status: Acute (2) CAD (coronary artery disease) Code(s): I25.10 - ATHSCL HEART DISEASE OF [place] CORONARY ARTERY W/O ANG PCTRS Status: Chronic (3) COPD (chronic obstructive pulmonary disease) Status: Chronic (4) Hypertension Code(s): I10 - ESSENTIAL (PRIMARY) HYPERTENSION Status: Chronic (5) Type 2 diabetes mellitus Status: Chronic - Plan * Acute on chronic respiratory failure- continue Duonebs, IV steroids, and empiric antibiotics * Continue Supplemental oxygen * COVID screen is pending, but she says [facility], and [facility] has been negative * DM- continue SSI, but will hold Metformin due to the recent CTA * HTN- re-start her home medications, and will add prn medications
[2020-02-24] MEDS ORDERED: Melatonin 3 MG TAB PO PRN (09:59)
[2020-02-24] MEDS ORDERED: Nitroglycerin 0.4 MG TAB (25 Tab Bottle) SL PRN (11:48)
[2020-02-24] MEDS ORDERED: Albuterol Sulfate 2.5 mg/3 ml Neb NEB PRN (11:48)
[2020-02-24 15:38] LABS: SARS-CoV-2 MS2 Positive; SARS-CoV-2 N Gene Negative; SARS-CoV-2 S Gene Negative; SARS-CoV-2 by NAA Not Detected (NotDetected); SARS-CoV-2 orf1ab Negative
[2020-02-24] MEDS: Metoprolol Tartrate 25 MG TAB PO SCH (16:30)
[2020-02-24] MEDS: Lisinopril 10 MG TAB PO SCH (16:30)
[2020-02-24] MEDS: Mometasone 100 MCG/Formoterol 5 MCG 120 PUFF INHALER INH SCH (18:52)
--- NOTE | 2020-02-24 19:38 | CON ---
DATE OF CONSULTATION: 02/24/2020 HISTORY OF PRESENT ILLNESS: Ms. Mahnoey is 69-year-old. She has an appointment to follow up with Dr. Bowman next month. He follows her for COPD. She presented with cough and sputum production for a couple of weeks. She also mainly was complaining of hoarseness and a sore throat. She [facility] comes to town and prescribes some medicine. She has no clue what she was given. She subsequently was admitted here. I asked her if she feels much different than she normally feels and she said no, except for the hoarseness. PAST MEDICAL HISTORY: Remarkable for; 1. Longstanding COPD, she no longer smokes. 2. History of diabetes. 3. Diastolic heart failure. 4. History of myocardial infarction in 2013, coronary artery disease. 5. Reflux disease. 6. History of peripheral neuropathy. 7. History of colon cancer. 8. Hypertension. 9. History of lipid disorder. 10. History of coronary artery stenting. 11. History of partial colon resection. MEDICATIONS: Have been reviewed. FAMILY HISTORY: Negative for lung disease in early age. REVIEW OF SYSTEMS: Otherwise negative. She denies purulent sputum or hemoptysis. PHYSICAL EXAMINATION: GENERAL: She is sitting at the side of bed. She is in no distress. She had nasal cannula in place. VITAL SIGNS: Blood pressure is 140/58, heart rate is in 70s, respiratory rates in the teens to low 20s, and oximetry is 100%. HEENT: Pupils are equal. Sclerae are anicteric. NECK: Without lymphadenopathy. LUNGS: Remarkable for distant breath sounds. No wheezes are heard. HEART: Regular rhythm. ABDOMEN: Soft and nontender. EXTREMITIES: With stasis changes. DIAGNOSTIC STUDIES: CT pulmonary angiogram showed mesenteric and celiac artery calcification. It shows calcified gallbladder. She has findings of pulmonary hypertension. There is no infiltrate nor mass seen. She had a right middle nodule that was unchanged compared to a chest CT in October. IMPRESSION: 1. Chronic obstructive pulmonary disease exacerbation. 2. Hoarseness, which is her primary complaint. 3. Pulmonary nodule is seen during the summer time on a CAT scan ordered by Dr. Borrego. She is unclear what was discussed about this or if this was addressed. I am not sure she is a candidate for anything. In looking back to a CAT scan in April, there is a 1.2 cm middle lobe density, so this in theory could be stable. 4. Found a CAT scan from October of 2018, shows this nodule as well. 5. I doubt she is too far off her baseline. She is followed [facility] Dr. Sommers [facility] and Dr. Bowman as an outpatient. I think she could probably be discharged in 24 to 48 hours. This is a 50 min. visit with greater than 50% of the time spent on the unit with coordination of care. Job ID: [id number] [facility]ITALSteve
[2020-02-24] MEDS: Ferrous Sulfate 325 MG TAB PO SCH (20:24)
[2020-02-24] MEDS ORDERED: traZODone HCl 50 MG TAB PO SCH (21:00)
[2020-02-25] MEDS: ALPRAZolam 0.25 MG TAB PO SCH (07:42)
[2020-02-25] MEDS: Metoprolol Tartrate 25 MG TAB PO SCH (07:43)
[2020-02-25] MEDS: Lisinopril 10 MG TAB PO SCH (07:44)
[2020-02-25] MEDS: Ferrous Sulfate 325 MG TAB PO SCH (07:46)
[2020-02-25] MEDS: Enoxaparin Sodium 40 MG/0.4 ML SYRINGE SC SCH (07:47)
[2020-02-25] MEDS: methylPREDNISolone Sod Succ 40 MG VIAL IVP SCH (07:52)
[2020-02-25 08:01] VITALS: BP 183/100
[2020-02-25] MEDS: Mometasone 100 MCG/Formoterol 5 MCG 120 PUFF INHALER INH SCH (08:31)
[2020-02-25] MEDS ORDERED: Loratadine 10 MG TAB PO SCH (09:00)
[2020-02-25] MEDS ORDERED: Multivit, Therapeutic 1 TAB PO SCH (09:00)
[2020-02-25] MEDS ORDERED: Non-Formulary Item 1 EACH (Umeclidinium Bromide [Incruse Ellipta] 62.5 MCG Blst.W.Dev) IH SCH (09:00)
[2020-02-25] MEDS ORDERED: Famotidine 20 MG TAB PO SCH (09:00)
[2020-02-25] MEDS ORDERED: Aspirin Chewable 81 MG TAB PO SCH (09:00)
[2020-02-25] MEDS: Azithromycin 500 MG in Sodium Chloride 0.9% 250 ML 250 ML IVPB SCH (09:11)
[2020-02-25 10:07] LABS: BUN (Urea Nitrogen) 27 mg/dL (9.8-20.1); Calc. Creatinine Clearance 50 mL/min (70-130); Calcium 9.1 mg/dL (7.8-10.44); Estimated GFR-MDRD 38; Glucose 206 mg/dL (83-110)
[2020-02-25 10:16] LABS: Anion Gap 11 mmol/L (10-20); Carbon Dioxide 37 mmol/L (23-31); Chloride 98 mmol/L (98-107); Potassium 4.6 mmol/L (3.5-5.1); Sodium 141 mmol/L (136-145)
--- NOTE | 2020-02-25 10:19 | PDOC.HOSPP ---
- Subjective Encounter Date: 02/25/20 Encounter Time: 10:17 Subjective: Ms. Mahoney was seen today in follow-up of COPD exacerbation. She says her breathing has improved. She continues to be hoarse , but denies soreness in her throat. - Objective Vital Signs & Weight: Vital Signs (12 hours) Temp BP Pulse Ox 02/25/20 08:00 99 02/25/20 07:44 183/100 H 02/25/20 07:21 97.4 F L 02/25/20 03:43 97.2 F L 02/24/20 23:30 97.1 F L Weight Weight 186 lb Most Recent Monitor Data Heart Rate from ECG 58 NIBP 127/60 NIBP BP-Mean 82 Respiration from ECG 19 SpO2 100 I&O: 02/24/20 02/25/20 02/26/20 06:59 06:59 06:59 Intake Total 1100 1120 Output Total 1750 1600 Balance -650 -480 Result Diagrams: 02/24/20 03:31 02/25/20 09:38 Additional Labs: Accuchecks 02/25/20 02/24/20 02/24/20 05:43 20:53 16:35 POC Glucose 95 247 H 126 H 02/24/20 10:35 POC Glucose 152 H Hospitalist ROS - Medication Medications: Active Medications Generic Name Dose Route Start Last Admin Trade Name Freq PRN Reason Stop Dose Admin Albuterol/Ipratropium 3 ml 02/23/20 16:43 02/24/20 22:03 Ipratropium/Albuterol Sulfate 3 Ml Neb NEB 3 ml [id number] PRN Administration SOB &/or Wheezing Alprazolam 0.5 mg 02/23/20 09:00 02/25/20 07:42 Alprazolam 0.25 Mg Tab PO 0.5 mg BID UCHE Administration Aspirin 81 mg 02/25/20 09:00 02/25/20 07:47 Aspirin Chewable 81 Mg Tab PO 81 mg DAILY UCHE Administration Clonidine 0.1 mg 02/24/20 09:48 02/24/20 16:31 Clonidine 0.1 Mg Tab PO 0.1 mg Q6H PRN Administration Blood Pressure Enoxaparin Sodium 40 mg 02/24/20 09:00 02/25/20 07:47 Enoxaparin Sodium 40 Mg/0.4 Ml Syringe SC 40 mg 0900 UCHE Administration Famotidine 20 mg 02/25/20 09:00 02/25/20 07:43 Famotidine 20 Mg Tab PO 20 mg DAILY UCHE Administration Ferrous Sulfate 325 mg 02/24/20 21:00 02/25/20 07:46 Ferrous Sulfate 325 Mg Tab PO 325 mg BID UCHE Administration Azithromycin 500 mg/ Sodium 250 mls @ 250 mls/hr 02/24/20 09:00 02/25/20 09:11 Chloride IVPB 250 mls Q24HR UCHE Administration Insulin Human Lispro 0 units 02/23/20 16:38 02/24/20 21:29 Humalog 300 Units/3 Ml Vial SC 3 unit .MILD SLIDING SCALE PRN Administration Mild Correctional Scale Lisinopril 20 mg 02/24/20 21:00 02/25/20 07:44 Lisinopril 10 Mg Tab PO 20 mg BID UCHE Administration Loratadine 10 mg 02/25/20 09:00 02/25/20 07:46 Loratadine 10 Mg Tab PO 10 mg DAILY UCHE Administration Methylprednisolone Sodium Succinate 40 mg 02/24/20 09:00 02/25/20 07:52 Methylprednisolone Sod Succ 40 Mg Vial IVP 40 mg DAILY UC[facility] Administration Metoprolol Tartrate 25 mg 02/24/20 21:00 02/25/20 07:43 Metoprolol Tartrate 25 Mg Tab PO 25 mg BID UCHE Administration Mometasone Furoate/Formoterol Fumar 2 puff 02/24/20 18:30 02/25/20 08:31 Mometasone 100 Mcg/Formoterol 5 Mcg 120 Puff Inhaler INH 2 puff BID-RT UCHE Administration Multivitamins 1 tab 02/25/20 09:00 02/25/20 07:44 Multivit, Therapeutic 1 Tab PO 1 tab DAILY UCHE Administration Trazodone HCl 50 mg 02/24/20 21:00 02/24/20 20:25 Trazodone Hcl 50 Mg Tab PO 50 mg HS UCHE Administration - Exam Eye: PERRL, anicteric sclera Heart: RRR, no murmur, no gallops, no rubs, normal peripheral pulses Respiratory: CTAB (with decreased air movement) Gastrointestinal: soft, non-tender, non-distended, normal bowel sounds, no palpable masses, no hepatomegaly Extremities: no cyanosis, no edema, 1+ LE edema Hosp A/P (1) Acute and chronic respiratory failure with hypoxia Code(s): J96.21 - ACUTE AND CHRONIC RESPIRATORY FAILURE WITH HYPOXIA Status: Acute (2) CAD (coronary artery disease) Code(s): I25.10 - ATHSCL HEART DISEASE OF [place] CORONARY ARTERY W/O ANG PCTRS Status: Chronic (3) COPD (chronic obstructive pulmonary disease) Status: Chronic (4) Hypertension Code(s): I10 - ESSENTIAL (PRIMARY) HYPERTENSION Status: Chronic (5) Type 2 diabetes mellitus Status: Chronic - Plan * Acute on chronic respiratory failure- continue Duonebs, IV steroids, and empiric antibiotics * Continue Supplemental oxygen * COVID - screen was negative * DM- continue SSI, but will re-start Metformin * HTN- stable * Stable for discharge home from the medical standpoint
[2020-02-25 10:23] LABS: #Eosinphils 0.1 thou/uL (0.0-0.7); #Lymphocytes 1.3 thou/uL (1.20-3.40); #Monocytes 0.4 thou/uL (0.11-0.59); #Neutrophils 6.3 thou/uL (1.40-6.50); %Basophils 0.3 % (0.0-1.0); %Eosinophils 0.7 % (0.0-10.0); %Lymphocytes 16.4 % (21.0-51.0); %Monocytes 4.3 % (0.0-10.0); %Neutrophils 78.2 % (42.0-75.0); Hemoglobin 9.4 g/dL (12.0-16.0); Mean Corpuscular HGB CONC 30.8 g/dL (32.0-36.0); Mean Corpuscular Hemoglobin 30.5 pg (27.0-31.0); Mean Platelet Volume 8.2 fL (7.4-10.4); Platelet Count 208 thou/uL (130-400); RBC Distribution Width 12.5 % (11.5-14.5); Red Blood Cell (RBC) Count 3.08 mill/uL (4.20-5.40)
[2020-02-25 15:26] VITALS: TEMP 97.5
--- NOTE | 2020-02-25 18:27 | PDOC.DS.DS ---
Provider - Provider Date of Admission: 02/23/20 12:58 Date of Discharge: 02/25/20 Admitting Provider: Jairo Duarte MD Consultations: Pulmonary Primary Care Physician: Albaro Sommers MD Course - Hospital Course Hospital Course: Ms. Simmons is a 69-year-old female that has a history of COPD colon cancer as well as hypertension she was admitted to the hospital with complaints of worsening shortness of breath as well as feeling hoarse. She was evaluated in the emergency room had a CT scan of the chest which was negative for PE however it did show severe emphysema. She was started on IV steroids as well as DuoNeb treatment and empiric antibiotics. The following day her symptoms had improved dramatically and her main complaint was just the hoarseness. She said this had started about 2 weeks prior to admission and her primary physician had given her some antibiotics without much improvement in her symptoms. She was instructed that this would likely improve but if it did not that she would need to discuss this with her primary care physician. It is likely related to a viral syndrome. However she is at risk for malignancy given her previous smoking history. She was also seen by pulmonology during her hospital stay and no significant changes to her treatment regimen were recommended. She is already on 3 L of oxygen at home and she was stable on this amount in the hospital. She was ambulatory without difficulty. And therefore she was subsequently able to be discharged home on a short steroid taper as well as to continue an oral course of azithromycin. Pertinent Studies: CTA Chest Lower extremity Venous dopplers Resuscitation Status: 02/23/20 14:39 Resuscitation Status Routine Resuscitation Status: PRTL: Cardiac only Discussed with: discussed - Labs Lab Results: 02/25/20 09:38 02/25/20 09:38 Abnormal Lab Results - Last 48 hrs 02/24/20 03:31: Carbon Dioxide 36 H, BUN 23 H, Creatinine 1.34 H 02/24/20 03:31: RBC 3.26 L, Hgb 10.1 L, Hct 31.3 L, Neutrophils % 86.9 H, Lymphocytes % 10.0 L, Lymphocytes # 0.7 L 02/25/20 09:38: Carbon Dioxide 37 H, BUN 27 H, Creatinine 1.38 H 02/25/20 09:38: RBC 3.08 L, Hgb 9.4 L, Hct 30.5 L, MCV 99.0 H, MCHC 30.8 L, Neutrophils % 78.2 H, Lymphocytes % 16.4 L Microbiology - Entire Visit 02/23/20 13:04 Venous blood - Right Hand Blood Culture - Preliminary NO GROWTH AT 48 HOURS 02/23/20 13:04 Venous blood - Right Arm Blood Culture - Preliminary NO GROWTH AT 48 HOURS - Physical Exam Vitals: Vital Signs (12 hours) Temp Pulse Resp BP Pulse Ox 02/25/20 15:25 97.5 F L 02/25/20 12:39 78 15 02/25/20 11:14 98.7 F 02/25/20 08:00 99 02/25/20 07:44 183/100 H 02/25/20 07:21 97.4 F L Weight Weight 186 lb Most Recent Monitor Data Heart Rate from ECG 75 NIBP 125/47 NIBP BP-Mean 73 Respiration from ECG 24 SpO2 100 Physical Exam: The patient was seen and examined on the day of discharge. Problem - Problem (1) Acute and chronic respiratory failure with hypoxia Code(s): J96.21 - ACUTE AND CHRONIC RESPIRATORY FAILURE WITH HYPOXIA Status: Acute (2) CAD (coronary artery disease) Code(s): I25.10 - ATHSCL HEART DISEASE OF [place] CORONARY ARTERY W/O ANG PCTRS Status: Chronic (3) COPD (chronic obstructive pulmonary disease) Status: Chronic (4) Hypertension Code(s): I10 - ESSENTIAL (PRIMARY) HYPERTENSION Status: Chronic (5) Type 2 diabetes mellitus Status: Chronic Plan - Discharge Medications Prescriptions: Azithromycin 250 mg PO DAILY #4 tablet predniSONE 20 mg PO [facility] #3 tab Home Medications: Medication Instructions Recorded Confirmed Type Aspirin [Aspirin EC] 81 mg PO DAILY 12/15/12 02/23/20 History Ferrous Sulfate [Iron] 325 mg PO BID 06/03/13 02/23/20 History traZODone 50 mg PO HS 02/20/16 02/23/20 History ALPRAZolam [Xanax] 0.5 mg PO BID 02/24/18 02/23/20 History Loratadine [Claritin] 10 mg PO DAILY 02/24/18 02/23/20 History Magnesium Hydroxide [Milk of 30 ml PO DAILY PRN 02/24/18 02/23/20 History Magnesia] Multivitamin [Daily Multiple 1 each PO DAILY 02/24/18 02/23/20 History Vitamin] Polyethylene Glycol 3350 [Miralax] 17 gm PO DAILY PRN 02/24/18 02/23/20 History metFORMIN [Glucophage] 500 mg PO BID-WM 02/24/18 02/23/20 History Lisinopril [Zestril] 20 mg PO BID 08/17/18 02/23/20 History cloNIDine [Catapres] 0.1 mg PO Q6HR PRN 08/17/18 02/23/20 History Fluticasone Propionate [Flonase 1 spray EA NARE DAILY PRN 01/05/19 02/23/20 History Nasal [place]] Fluticasone/Vilanterol [Breo 1 inh IH BID 01/05/19 02/23/20 History Ellipta] Ipratropium/Albuterol Sulfate 3 ml NEB QID 01/05/19 02/23/20 History [DuoNeb] Magnesium 250 mg PO BID 01/05/19 02/23/20 History Menthol [Biofreeze 4% Gel] 1 applic TOP QID PRN 01/05/19 02/23/20 History Nitroglycerin 0.4 mg SL ASDIR PRN 01/05/19 02/23/20 History Umeclidinium [place] [Incruse 1 inh IH DAILY 01/05/19 02/23/20 History Ellipta] Ventolin HFA Inhaler 2 puff INH Q4HR PRN 01/05/19 02/23/20 History traMADol HCl [Tramadol HCl] 50 mg PO Q6HR PRN 01/05/19 02/23/20 History Acetaminophen 1,000 mg PO Q6HR PRN 01/10/19 02/23/20 History Albuterol Sulfate [Proventil Hfa] 2 puff INH Q4H PRN 01/10/19 02/23/20 History Aluminum & Magnesium Hydroxide 30 ml PO Q4H PRN 01/10/19 02/23/20 History [Maalox] Famotidine [Pepcid] 20 mg PO DAILY 04/01/19 02/23/20 History Atorvastatin Calcium [Lipitor] 40 mg PO DAILY 02/23/20 02/23/20 History Calcium Carbonate [Tums] 500 mg PO QID PRN 02/23/20 02/23/20 History Furosemide 20 mg PO Q3DAYS 02/23/20 02/23/20 History Ipratropium/Albuterol Sulfate 3 ml NEB Q12HR PRN 02/23/20 02/23/20 History [DuoNeb] Lidocaine [Lidocaine Pain Relief] 1 patch TOP DAILY PRN 02/23/20 02/23/20 History Melatonin 5 mg PO HS PRN 02/23/20 02/23/20 History Metoprolol Tartrate [Lopressor] 25 mg PO BID 02/23/20 02/23/20 History Ondansetron [Zofran ODT] 4 mg PO Q6HR PRN 02/23/20 02/23/20 History guaiFENesin [Carla-Tussin] 5 ml PO Q6HR PRN 02/23/20 02/23/20 History Azithromycin 250 mg PO DAILY #4 tablet 02/25/20 Rx predniSONE 20 mg PO QAM-WM #3 tab 02/25/20 Rx Allergies: ciprofloxacin [From Cipro] Allergy (Verified 07/04/19 17:16) ciprofloxacin HCl [From Cipro] Allergy (Verified 07/04/19 17:16) naproxen sodium [From Aleve] Allergy (Verified 07/04/19 17:16) Swollen Lips - Discharge Instructions Discharge Instructions:: Follow-up with your Primary Care Provider in 2 weeks Activity:: Activity as Tolerated Nourishment:: Heart Healthy Diet - Follow up Plan Referrals: Albaro Sommers MD [Primary Care Provider] - Disposition: HOME Quality - Care Measures CORE MEASURES:: N/A
[2020-02-25] MEDS ORDERED: Atorvastatin Calcium 40 MG TAB PO SCH (21:00)
--- NOTE | 2020-02-27 10:45 | PRG ---
DATE OF SERVICE: 02/27/2020 SUBJECTIVE: Ms. Mahoney was evaluated. She is in no distress. She wanted to go home. OBJECTIVE: LUNGS: Clear. HEART: Regular rhythm. ABDOMEN: Soft. LABORATORY DATA: White count 8, hemoglobin 9.4, and platelets 208. Creatinine is 1.38. IMPRESSION: 1. Asthma exacerbation, clinically improved. She follow up with me within a month. 2. Coexistent chronic obstructive pulmonary disease. 3. Mesenteric vascular calcification. 4. Calcified gallbladder. Obviously, this is the possibility of a malignant gallbladder, is asked to be in the differential. She should be seen by a surgeon at some point in time. She will follow up with Dr. Bowman as an outpatient. It is debatable whether she would be a candidate for cholecystectomy. Job ID: [id number]
== END 2020-02-25 15:47 | disposition home or self-care (01) | DRG 865 ==
LOC: ERS 11:16 → ERHOLD 12:58 → IMCU/EMU 16:01
PROVIDERS: ADMIT Student in an Organized Health Care Education/Training Program; ATTEND Student in an Organized Health Care Education/Training Program
PROC: 5A09357 Assistance with Respiratory Ventilation, Less than 24 Consecutive Hours, Continuous Positive Airway Pressure (ICD-10-PCS; principal; 2020-02-23)
DX: B34.9 Viral infection, unspecified (principal); J96.21 Acute and chronic respiratory failure with hypoxia; J43.9 Emphysema, unspecified; I10 Essential (primary) hypertension; Z20.828 Contact with and (suspected) exposure to other viral communicable diseases; I25.10 Atherosclerotic heart disease of native coronary artery without angina pectoris; F41.9 Anxiety disorder, unspecified; E11.42 Type 2 diabetes mellitus with diabetic polyneuropathy; K21.9 Gastro-esophageal reflux disease without esophagitis; K82.8 Other specified diseases of gallbladder; I27.20 Pulmonary hypertension, unspecified; Z85.118 Personal history of other malignant neoplasm of bronchus and lung; Z85.038 Personal history of other malignant neoplasm of large intestine; Z98.890 Other specified postprocedural states; Z88.1 Allergy status to other antibiotic agents; Z88.8 Allergy status to other drugs, medicaments and biological substances; Z79.82 Long term (current) use of aspirin; I25.2 Old myocardial infarction
CPT/HCPCS: 36415; 36416; 71045; 71275; 80048; 80053; 82550; 82805; 83605; 83690; 83880; 84484; 85025; 85379; 87040; 87635; 93005; 93970; 94640; 94644; 94660; 94760; J0456; J0696; J1100; J1650; J2920; J3475; J7050; J7611; J7620; Q9967; U0003

== ENCOUNTER 2020-05-28 14:03 | Outpatient (CLI) | payer MEDICARE, MEDICAID ==
[~2020-05-28 14:03] MED LIST changes: +Iopamidol 370 76% 100 ML VIAL ONE; -Iopamidol-370 76% 500 ML 1 ML ONE
== END 2020-05-28 14:04 | disposition home or self-care (01) ==
LOC: BICCT 14:03
PROVIDERS: ATTEND Radiology Radiation Oncology
DX: C34.91 Malignant neoplasm of unspecified part of right bronchus or lung (principal); R59.0 Localized enlarged lymph nodes
CPT/HCPCS: 71260; 82565; Q9967

== ENCOUNTER 2020-11-03 01:53 | Emergency (ER) | payer MEDICARE, MEDICAID ==
[2020-11-03] MEDS ORDERED: Albuterol Sulfate 2.5 mg/3 ml Neb ONE (07:03)
== END 2020-11-03 09:50 | disposition home or self-care (01) ==
LOC: ERS 01:53
DX: M25.572 Pain in left ankle and joints of left foot (principal); D64.9 Anemia, unspecified; E11.9 Type 2 diabetes mellitus without complications; E78.5 Hyperlipidemia, unspecified; I25.10 Atherosclerotic heart disease of native coronary artery without angina pectoris
CPT/HCPCS: 71045; 84484; 93005; J7611; J7620

== ENCOUNTER 2021-02-02 18:01 | Inpatient (IN) | payer MEDICARE, MEDICAID ==
[2021-02-02 19:03] LABS: #Eosinphils 0.1 thou/uL (0.0-0.7); #Lymphocytes 0.9 thou/uL (1.20-3.40); #Monocytes 0.6 thou/uL (0.11-0.59); #Neutrophils 8.1 thou/uL (1.40-6.50); %Basophils 0.3 % (0.0-1.0); %Eosinophils 0.8 % (0.0-10.0); %Lymphocytes 9.4 % (21.0-51.0); %Monocytes 6.2 % (0.0-10.0); %Neutrophils 83.4 % (42.0-75.0); Hemoglobin 9.9 g/dL (12.0-16.0); Mean Corpuscular HGB CONC 29.8 g/dL (32.0-36.0); Mean Corpuscular Hemoglobin 28.5 pg (27.0-31.0); Mean Corpuscular Volume 95.6 fL (78.0-98.0); Mean Platelet Volume 7.4 fL (7.4-10.4); Platelet Count 271 thou/uL (130-400); RBC Distribution Width 13.9 % (11.5-14.5); Red Blood Cell (RBC) Count 3.46 mill/uL (4.20-5.40); White Blood Cell (WBC) Count 9.7 thou/uL (4.8-10.8)
[2021-02-02 19:25] LABS: ALT (SGPT) 34 U/L (8-55); AST (SGOT) 11 U/L (5-34); Albumin 3.6 g/dL (3.4-4.8); Alkaline Phosphatase 59 U/L (40-110); BUN (Urea Nitrogen) 38 mg/dL (9.8-20.1); Bilirubin, Total 0.4 mg/dL (0.2-1.2); Calc. Creatinine Clearance 0 mL/min (70-130); Calcium 9.3 mg/dL (7.8-10.44); Globulin 2.1 g/dL (2.4-3.5); Glucose 115 mg/dL (83-110); Protein, Total 5.7 g/dL (5.8-8.1)
[2021-02-02 19:35] LABS: Anion Gap 16 mmol/L (10-20); Carbon Dioxide 34 mmol/L (23-31); Chloride 96 mmol/L (98-107); Potassium 5.4 mmol/L (3.5-5.1); Sodium 141 mmol/L (136-145)
[2021-02-02] MEDS ORDERED: Aspirin Chewable 81 MG TAB ONE (19:57)
[2021-02-02] MEDS ORDERED: methylPREDNISolone Sod Succ/PF 125 MG/2 ML VIAL ONE (19:57)
[2021-02-02] MEDS ORDERED: Albuterol Sulfate 2.5 mg/3 ml Neb NEB PRN (20:42)
[2021-02-02] MEDS ORDERED: guaiFENesin 200 MG TAB PO PRN (20:44)
[2021-02-02] MEDS ORDERED: Sodium Chloride 0.9% 1,000 ML IV SCH (20:45)
[2021-02-02] MEDS ORDERED: Ondansetron PF 4 MG/2 ML Vial IVP PRN (20:47)
[2021-02-02] MEDS ORDERED: Ondansetron ODT 4 MG TAB PO PRN (20:47)
[2021-02-02] MEDS ORDERED: Acetaminophen 325 MG TAB PO PRN (20:47)
[2021-02-02] MEDS ORDERED: Senokot S 8.6-50 MG TAB PO PRN (20:47)
[2021-02-02] MEDS ORDERED: Nitroglycerin 0.4 MG TAB (25 Tab Bottle) SL PRN (20:51)
[2021-02-02] MEDS ORDERED: Dextrose 5% in Water 1,000 ML IV PRN (20:57)
[2021-02-02] MEDS ORDERED: HumaLOG 300 UNITS/3 ML VIAL SC PRN (20:57)
[2021-02-02] MEDS ORDERED: Dextrose 50% Abboject 50 ML SYRINGE SLOW IVP PRN (20:57)
[2021-02-02] MEDS ORDERED: Melatonin 3 MG TAB PO SCH (21:00)
[2021-02-02 22:10] LABS: Magnesium 2.3 mg/dL (1.6-2.6)
[2021-02-02] MEDS ORDERED: Famotidine 20 MG TAB PO SCH (22:15)
[2021-02-03] MEDS ORDERED: ALPRAZolam 0.25 MG TAB PO SCH (00:15)
[2021-02-03 00:16] VITALS: BMI 31.9
[2021-02-03] MEDS: hydrALAZINE 20 MG/ML VIAL SLOW IVP PRN ×2 (00:22→08:32)
[2021-02-03] MEDS: ALPRAZolam 0.25 MG TAB PO SCH ×3 (00:23→20:35)
[2021-02-03] MEDS: Enoxaparin Sodium 30 MG/0.3 ML SYRINGE SC SCH ×2 (01:55→20:37)
[2021-02-03] MEDS: methylPREDNISolone Sod Succ 40 MG VIAL IVP SCH ×4 (01:55→18:37)
[2021-02-03 04:57] LABS: Bacteria/HPF None Seen HPF (None Seen); Bilirubin Negative (Negative); Blood, Urine Negative (Negative); Clarity Clear (Clear); Glucose, Urine (Dipstick) 150 mg/dL (Negative); Ketone, Urine Negative (Negative); Leukocyte Negative Leu/uL (Negative); Nitrite Negative (Negative); Protein, Urine (Dipstick) Negative (Neg-Trace); RBC/HPF 0-3 HPF (0-3); Specific Gravity, Urine 1.009 (1.002-1.036); Squamous Epithelial None Seen HPF (0-3); Urobilinogen Normal mg/dL (Less than 2); WBC/HPF 0-3 HPF (0-3)
[2021-02-03 05:44] LABS: Urine Culture Reflex No No
[2021-02-03 06:16] LABS: Anion Gap 11 mmol/L (10-20); BUN (Urea Nitrogen) 38 mg/dL (9.8-20.1); Calc. Creatinine Clearance 54 mL/min (70-130); Carbon Dioxide 35 mmol/L (23-31); Chloride 97 mmol/L (98-107); Glucose 219 mg/dL (83-110); Potassium 5.3 mmol/L (3.5-5.1); Sodium 138 mmol/L (136-145)
[2021-02-03 06:17] LABS: #Lymphocytes 0.6 thou/uL (1.20-3.40); #Monocytes 0.2 thou/uL (0.11-0.59); #Neutrophils 6.8 thou/uL (1.40-6.50); %Basophils 0.1 % (0.0-1.0); %Eosinophils 0.5 % (0.0-10.0); %Lymphocytes 7.6 % (21.0-51.0); %Neutrophils 89.8 % (42.0-75.0); Hemoglobin 9.8 g/dL (12.0-16.0); Mean Corpuscular HGB CONC 31.7 g/dL (32.0-36.0); Mean Corpuscular Hemoglobin 30.1 pg (27.0-31.0); Mean Corpuscular Volume 95.1 fL (78.0-98.0); Mean Platelet Volume 7.7 fL (7.4-10.4); Platelet Count 235 thou/uL (130-400); RBC Distribution Width 14.1 % (11.5-14.5); Red Blood Cell (RBC) Count 3.26 mill/uL (4.20-5.40); White Blood Cell (WBC) Count 7.5 thou/uL (4.8-10.8)
[2021-02-03] MEDS ORDERED: Famotidine 20 MG TAB PO SCH (09:00)
[2021-02-03] MEDS: HumaLOG 300 UNITS/3 ML VIAL SC PRN (11:04)
[2021-02-03 12:21] LABS: SARS-CoV-2 PCR by NAA DETECTED (NotDetected)
[2021-02-03 14:10] LABS: Potassium 5.3 mmol/L (3.5-5.1)
[2021-02-03] MEDS ORDERED: Albuterol 200 PUFF (6.7GM INHALER) INH PRN (15:30)
[2021-02-03] MEDS ORDERED: traMADol HCl 50 MG TAB PO SCH (16:00)
[2021-02-03] MEDS ORDERED: Albuterol 200 PUFF (6.7GM INHALER) INH SCH (18:30)
[2021-02-03] MEDS ORDERED: Acetaminophen 500 MG TAB PO PRN (19:50)
[2021-02-03] MEDS ORDERED: Calcium Carbonate 500 MG ChewTAB PO PRN (19:50)
[2021-02-03] MEDS ORDERED: Mag-Al 1200 mg/1200 mg/30 ML UDCUP PO PRN (19:50)
[2021-02-03] MEDS ORDERED: LOKELMA 10 GM PACKET PO SCH (21:00)
[2021-02-03] MEDS ORDERED: Melatonin 3 MG TAB PO PRN (21:00)
[2021-02-03] MEDS: Lisinopril 10 MG TAB PO SCH (21:30)
[2021-02-03] MEDS: Metoprolol Tartrate 25 MG TAB PO SCH (21:31)
[2021-02-04] MEDS ORDERED: Mometasone 100 MCG/Formoterol 5 MCG 120 PUFF INHALER INH SCH (06:30)
[2021-02-04 06:34] LABS: BUN (Urea Nitrogen) 44 mg/dL (9.8-20.1); Calc. Creatinine Clearance 51 mL/min (70-130); Calcium 8.9 mg/dL (7.8-10.44); Glucose 139 mg/dL (83-110)
[2021-02-04 06:44] LABS: Anion Gap 18 mmol/L (10-20); Carbon Dioxide 30 mmol/L (23-31); Chloride 98 mmol/L (98-107); Potassium 4.9 mmol/L (3.5-5.1); Sodium 141 mmol/L (136-145)
[2021-02-04] MEDS ORDERED: predniSONE 20 MG TAB PO SCH (08:00)
[2021-02-04] MEDS: Ferrous Sulfate 325 MG TAB PO SCH ×2 (08:50→20:19)
[2021-02-04] MEDS: ALPRAZolam 0.25 MG TAB PO SCH ×2 (08:50→20:19)
[2021-02-04] MEDS: Metoprolol Tartrate 25 MG TAB PO SCH ×2 (08:50→20:20)
[2021-02-04] MEDS: Lisinopril 10 MG TAB PO SCH ×2 (08:51→20:19)
[2021-02-04] MEDS ORDERED: Famotidine 20 MG TAB PO SCH (09:00)
[2021-02-04] MEDS ORDERED: Azithromycin 250 MG TAB PO SCH (09:00)
[2021-02-04] MEDS ORDERED: Atorvastatin Calcium 40 MG TAB PO SCH (09:00)
[2021-02-04] MEDS ORDERED: Aspirin 81 mg Enteric Coated Tablet PO SCH (09:00)
[2021-02-04] MEDS: HumaLOG 300 UNITS/3 ML VIAL SC PRN (16:39)
[2021-02-04] MEDS ORDERED: CASIRIVIMAB/IMDEVIMAB 10 ML in Sodium Chloride 0.9% 250 ML 250 ML IV SCH (18:30)
[2021-02-04] MEDS: Enoxaparin Sodium 30 MG/0.3 ML SYRINGE SC SCH ×2 (20:18→20:19)
[2021-02-04 21:54] VITALS: BP 157/71; TEMP 97.1
== END 2021-02-04 21:31 | DRG 177 ==
LOC: ERS 18:01 → 2SW 20:25 → OBSVTOIN 02-03 19:14
PROVIDERS: ADMIT Internal Medicine; ATTEND Hospitalist
PROC: 8E0ZXY6 Isolation (ICD-10-PCS; 2021-02-03)
PROC: XW033G6 Introduction of REGN-COV2 Monoclonal Antibody into Peripheral Vein, Percutaneous Approach, New Technology Group 6 (ICD-10-PCS; principal; 2021-02-04)
DX: U07.1 COVID-19 (principal); J12.82 Pneumonia due to coronavirus disease 2019; J96.21 Acute and chronic respiratory failure with hypoxia; I21.A1 Myocardial infarction type 2; J44.1 Chronic obstructive pulmonary disease with (acute) exacerbation; N17.9 Acute kidney failure, unspecified; J44.0 Chronic obstructive pulmonary disease with (acute) lower respiratory infection; Z23 Encounter for immunization; N18.30 Chronic kidney disease, stage 3 unspecified; E11.22 Type 2 diabetes mellitus with diabetic chronic kidney disease; E78.5 Hyperlipidemia, unspecified; E11.42 Type 2 diabetes mellitus with diabetic polyneuropathy; K21.9 Gastro-esophageal reflux disease without esophagitis; I12.9 Hypertensive chronic kidney disease with stage 1 through stage 4 chronic kidney disease, or unspecified chronic kidney disease; I25.10 Atherosclerotic heart disease of native coronary artery without angina pectoris; D64.9 Anemia, unspecified; E87.5 Hyperkalemia; D63.1 Anemia in chronic kidney disease; F32.A Depression, unspecified; G47.00 Insomnia, unspecified; F41.1 Generalized anxiety disorder; Z88.6 Allergy status to analgesic agent; Z88.1 Allergy status to other antibiotic agents; Z99.81 Dependence on supplemental oxygen; Z95.5 Presence of coronary angioplasty implant and graft; Z85.118 Personal history of other malignant neoplasm of bronchus and lung; Z90.49 Acquired absence of other specified parts of digestive tract; Z85.038 Personal history of other malignant neoplasm of large intestine; Z92.21 Personal history of antineoplastic chemotherapy; Z79.899 Other long term (current) drug therapy; Z79.82 Long term (current) use of aspirin; Z79.84 Long term (current) use of oral hypoglycemic drugs; Z79.51 Long term (current) use of inhaled steroids; Z86.73 Personal history of transient ischemic attack (TIA), and cerebral infarction without residual deficits; Z87.891 Personal history of nicotine dependence; I25.2 Old myocardial infarction
CPT/HCPCS: 36415; 36416; 71045; 78451; 80048; 80053; 81001; 83735; 84484; 85025; 93005; 93010; 94640; 96374; 96375; 96376; A9500; G0378; J0360; J1650; J2920; J2930; J7050; J7512; J7620; M0243; Q0244; U0003; U0005

== ENCOUNTER 2021-02-17 00:49 | Inpatient (IN) | payer MEDICARE, MEDICAID ==
[2021-02-17 01:12] LABS: #Basophils 0.1 thou/uL (0.0-0.2); #Eosinphils 0.1 thou/uL (0.0-0.7); #Lymphocytes 1.4 thou/uL (1.20-3.40); #Monocytes 0.6 thou/uL (0.11-0.59); #Neutrophils 3.9 thou/uL (1.40-6.50); %Basophils 1.1 % (0.0-1.0); %Eosinophils 1.3 % (0.0-10.0); %Lymphocytes 23.2 % (21.0-51.0); %Monocytes 9.5 % (0.0-10.0); %Neutrophils 64.9 % (42.0-75.0); Hemoglobin 9.9 g/dL (12.0-16.0); Mean Corpuscular HGB CONC 31.7 g/dL (32.0-36.0); Mean Corpuscular Hemoglobin 31.4 pg (27.0-31.0); Mean Corpuscular Volume 98.9 fL (78.0-98.0); Mean Platelet Volume 7.4 fL (7.4-10.4); Platelet Count 174 thou/uL (130-400); RBC Distribution Width 14.2 % (11.5-14.5); Red Blood Cell (RBC) Count 3.17 mill/uL (4.20-5.40)
[2021-02-17 01:22] LABS: Bilirubin Negative (Negative); Blood, Urine Negative (Negative); Clarity Clear (Clear); Glucose, Urine (Dipstick) Normal (Negative); Ketone, Urine Negative (Negative); Leukocyte Negative Leu/uL (Negative); Nitrite Negative (Negative); Protein, Urine (Dipstick) Negative (Neg-Trace); Specific Gravity, Urine 1.011 (1.002-1.036); Urobilinogen Normal mg/dL (Less than 2); pH, Urine 7.5 (5.0-9.0)
[2021-02-17] MEDS ORDERED: Cefepime 2 GM VIAL ONE (01:42)
[2021-02-17 01:58] LABS: Albumin 3.2 g/dL (3.4-4.8)
[2021-02-17 01:59] LABS: Chloride 92 mmol/L (98-107); Potassium 4.6 mmol/L (3.5-5.1); Sodium 137 mmol/L (136-145)
[2021-02-17 02:00] LABS: Calcium 8.2 mg/dL (7.8-10.44)
[2021-02-17 02:01] LABS: Glucose 124 mg/dL (83-110); Protein, Total 5.2 g/dL (5.8-8.1)
[2021-02-17 02:02] LABS: Bilirubin, Total 0.7 mg/dL (0.2-1.2)
[2021-02-17 02:03] LABS: Alkaline Phosphatase 59 U/L (40-110)
[2021-02-17 02:04] LABS: Calc. Creatinine Clearance 0 mL/min (70-130)
[2021-02-17 02:05] LABS: BUN (Urea Nitrogen) 19 mg/dL (9.8-20.1)
[2021-02-17 02:06] LABS: ALT (SGPT) 30 U/L (8-55); AST (SGOT) 16 U/L (5-34)
[2021-02-17 02:12] LABS: Carbon Dioxide 36 mmol/L (23-31)
[2021-02-17 02:15] LABS: Anion Gap 14 mmol/L (10-20)
[2021-02-17 02:20] LABS: CKMB 0.7 ng/mL (0-6.6)
[2021-02-17] MEDS ORDERED: Vancomycin 1 GM/200 ML BAG ONE (02:26)
[2021-02-17 02:33] LABS: INR-International Normal Ratio 0.9; PTT 25.2 sec (22.9-36.1); Prothrombin Time 12.5 sec (12.0-14.7)
[2021-02-17 02:35] LABS: D-Dimer Test 0.8 *mcg/mL (0.27-0.43)
[2021-02-17] MEDS ORDERED: Ondansetron PF 4 MG/2 ML Vial IVP PRN (03:59)
[2021-02-17] MEDS ORDERED: Dextrose 5% in Water 1,000 ML IV PRN (04:08)
[2021-02-17] MEDS ORDERED: HumaLOG 300 UNITS/3 ML VIAL SC PRN (04:08)
[2021-02-17] MEDS ORDERED: Dextrose 50% Abboject 50 ML SYRINGE SLOW IVP PRN (04:08)
[2021-02-17] MEDS ORDERED: Sodium Chloride 0.9% 1,000 ML IV SCH ×2 (04:30→07:33)
[2021-02-17 04:55] LABS: Troponin I 0.035 ng/mL (< 0.028)
[2021-02-17] MEDS ORDERED: Norepinephrine 8 MG/0.9% NS 250 ML ONE (07:34)
[2021-02-17 07:35] LABS: Troponin I 0.037 ng/mL (< 0.028)
[2021-02-17] MEDS ORDERED: Norepinephrine 8 MG/0.9% NS 250 ML IVPB SCH (07:45)
[2021-02-17 09:35] VITALS: BMI 33.7
[2021-02-17] MEDS: Famotidine 20 MG TAB PO SCH (10:05)
[2021-02-17] MEDS: Enoxaparin Sodium 40 MG/0.4 ML SYRINGE SC SCH (10:06)
[2021-02-17] MEDS ORDERED: methylPREDNISolone Sod Succ 40 MG VIAL IVP SCH (12:30)
[2021-02-17] MEDS: Acetaminophen 325 MG TAB PO PRN ×2 (12:31→22:43)
[2021-02-17 13:14] LABS: Base Excess 9.7 mEq/L (-2.0 to +3.0); Calcium, Ionized (venous) 1.05 mmol/L (1.16-1.32); Chloride (VBG) 97 mmol/L (98-106); Potassium (VBG) 4.38 mmol/L (3.70-5.30); Sodium 134.3 mmol/L (133-146); pH (venous) 7.35 (7.32-7.43)
[2021-02-17 13:15] LABS: Actual Bicarbonate (HCO3v) 37 mEq/L (22-28)
[2021-02-17] MEDS: Cefepime 2 GM in Sodium Chloride 0.9% 100 ML IVPB SCH (13:28)
[2021-02-17] MEDS: HumaLOG 300 UNITS/3 ML VIAL SC PRN (16:37)
[2021-02-17] MEDS: methylPREDNISolone Sod Succ 40 MG VIAL IVP SCH ×2 (17:09→23:57)
[2021-02-18] MEDS: Vancomycin 1 GM in Premix Bag 1 BAG IVPB SCH (01:07)
[2021-02-18 04:40] LABS: #Lymphocytes 0.3 thou/uL (1.20-3.40); #Monocytes 0.1 thou/uL (0.11-0.59); #Neutrophils 2.4 thou/uL (1.40-6.50); %Eosinophils 0.5 % (0.0-10.0); %Monocytes 2.7 % (0.0-10.0); %Neutrophils 85.8 % (42.0-75.0); Hemoglobin 8.6 g/dL (12.0-16.0); Mean Corpuscular HGB CONC 32.3 g/dL (32.0-36.0); Mean Corpuscular Hemoglobin 31.3 pg (27.0-31.0); Mean Corpuscular Volume 96.9 fL (78.0-98.0); Mean Platelet Volume 7.3 fL (7.4-10.4); Platelet Count 166 thou/uL (130-400); RBC Distribution Width 13.5 % (11.5-14.5); Red Blood Cell (RBC) Count 2.75 mill/uL (4.20-5.40); White Blood Cell (WBC) Count 2.8 thou/uL (4.8-10.8)
[2021-02-18 04:46] LABS: BUN (Urea Nitrogen) 17 mg/dL (9.8-20.1); Calc. Creatinine Clearance 67 mL/min (70-130); Calcium 8.2 mg/dL (7.8-10.44); Glucose 214 mg/dL (83-110)
[2021-02-18 04:56] LABS: Anion Gap 15 mmol/L (10-20); Carbon Dioxide 34 mmol/L (23-31); Chloride 97 mmol/L (98-107); Potassium 4.8 mmol/L (3.5-5.1); Sodium 141 mmol/L (136-145)
[2021-02-18] MEDS: Acetaminophen 325 MG TAB PO PRN ×3 (05:13→18:49)
[2021-02-18] MEDS: methylPREDNISolone Sod Succ 40 MG VIAL IVP SCH ×3 (05:13→17:03)
[2021-02-18] MEDS: HumaLOG 300 UNITS/3 ML VIAL SC PRN ×3 (05:40→17:01)
[2021-02-18] MEDS: Famotidine 20 MG TAB PO SCH (08:20)
[2021-02-18] MEDS: Enoxaparin Sodium 40 MG/0.4 ML SYRINGE SC SCH (08:20)
[2021-02-18] MEDS: ALPRAZolam 0.5 MG TAB PO PRN ×2 (09:05→20:15)
[2021-02-18] MEDS: Azithromycin 500 MG in Sodium Chloride 0.9% 250 ML 250 ML IVPB SCH (10:50)
[2021-02-18] MEDS: Cefepime 2 GM in Sodium Chloride 0.9% 100 ML IVPB SCH ×2 (13:42)
[2021-02-18] MEDS: Milk Of Magnesia 30 ML UDCUP PO PRN ×2 (14:03→20:15)
[2021-02-18] MEDS: Mometasone 200 MCG/Formoterol 5 MCG 120 PUFF INHALER INH SCH (18:23)
[2021-02-18 18:40] LABS: SARS-CoV-2 NAA Rapid Test Not Detected (NotDetected)
[2021-02-18] MEDS: Lantus 1000 UNITS/10 ML VIAL SC SCH (20:16)
[2021-02-19] MEDS: Cefepime 2 GM in Sodium Chloride 0.9% 100 ML IVPB SCH ×2 (00:17→14:46)
[2021-02-19] MEDS: methylPREDNISolone Sod Succ 40 MG VIAL IVP SCH ×4 (00:20→18:06)
[2021-02-19] MEDS: Vancomycin 1 GM in Premix Bag 1 BAG IVPB SCH (01:09)
[2021-02-19 03:22] LABS: #Lymphocytes 0.4 thou/uL (1.20-3.40); #Monocytes 0.2 thou/uL (0.11-0.59); #Neutrophils 6.4 thou/uL (1.40-6.50); %Basophils 0.5 % (0.0-1.0); %Eosinophils 0.2 % (0.0-10.0); %Monocytes 3.3 % (0.0-10.0); %Neutrophils 90.1 % (42.0-75.0); Hemoglobin 9.2 g/dL (12.0-16.0); Mean Corpuscular Hemoglobin 31.6 pg (27.0-31.0); Mean Platelet Volume 7.4 fL (7.4-10.4); Platelet Count 223 thou/uL (130-400); RBC Distribution Width 14.1 % (11.5-14.5); Red Blood Cell (RBC) Count 2.89 mill/uL (4.20-5.40); White Blood Cell (WBC) Count 7.2 thou/uL (4.8-10.8)
[2021-02-19 03:43] LABS: Phosphorus 2.3 mg/dL (2.3-4.7)
[2021-02-19 03:44] LABS: Anion Gap 11 mmol/L (10-20); BUN (Urea Nitrogen) 23 mg/dL (9.8-20.1); Calc. Creatinine Clearance 64 mL/min (70-130); Calcium 8.7 mg/dL (7.8-10.44); Carbon Dioxide 35 mmol/L (23-31); Chloride 98 mmol/L (98-107); Glucose 230 mg/dL (83-110); Magnesium 2.9 mg/dL (1.6-2.6); Potassium 5.1 mmol/L (3.5-5.1); Sodium 139 mmol/L (136-145)
[2021-02-19] MEDS: Acetaminophen 325 MG TAB PO PRN ×2 (06:17→15:49)
[2021-02-19] MEDS: Mometasone 200 MCG/Formoterol 5 MCG 120 PUFF INHALER INH SCH ×2 (06:38→18:57)
[2021-02-19] MEDS: Famotidine 20 MG TAB PO SCH (08:00)
[2021-02-19] MEDS: Enoxaparin Sodium 40 MG/0.4 ML SYRINGE SC SCH (08:01)
[2021-02-19] MEDS: ALPRAZolam 0.5 MG TAB PO PRN ×3 (08:04→23:30)
[2021-02-19] MEDS: Azithromycin 500 MG in Sodium Chloride 0.9% 250 ML 250 ML IVPB SCH (11:20)
[2021-02-19] MEDS: HumaLOG 300 UNITS/3 ML VIAL SC PRN ×2 (11:54→18:06)
[2021-02-19] MEDS: Lantus 1000 UNITS/10 ML VIAL SC SCH (20:40)
[2021-02-20] MEDS: methylPREDNISolone Sod Succ 40 MG VIAL IVP SCH ×3 (00:36→20:40)
[2021-02-20] MEDS: Cefepime 2 GM in Sodium Chloride 0.9% 100 ML IVPB SCH ×2 (00:36→12:51)
[2021-02-20 01:38] LABS: Vancomycin, Trough 10.9 ug/mL
[2021-02-20] MEDS: VANCOMYCIN 1.25 GM/250 ML BAG 1.25 GM in Premix Bag 1 BAG IVPB SCH (03:13)
[2021-02-20 04:12] LABS: #Lymphocytes 0.6 thou/uL (1.20-3.40); #Monocytes 0.2 thou/uL (0.11-0.59); #Neutrophils 5.7 thou/uL (1.40-6.50); %Basophils 0.2 % (0.0-1.0); %Eosinophils 0.3 % (0.0-10.0); %Lymphocytes 9.2 % (21.0-51.0); %Monocytes 3.3 % (0.0-10.0); Hemoglobin 8.7 g/dL (12.0-16.0); Mean Corpuscular HGB CONC 31.6 g/dL (32.0-36.0); Mean Corpuscular Hemoglobin 30.2 pg (27.0-31.0); Mean Corpuscular Volume 95.5 fL (78.0-98.0); Mean Platelet Volume 7.5 fL (7.4-10.4); Platelet Count 249 thou/uL (130-400); RBC Distribution Width 14.2 % (11.5-14.5); Red Blood Cell (RBC) Count 2.88 mill/uL (4.20-5.40); White Blood Cell (WBC) Count 6.6 thou/uL (4.8-10.8)
[2021-02-20 04:34] LABS: Anion Gap 11 mmol/L (10-20); BUN (Urea Nitrogen) 28 mg/dL (9.8-20.1); Calc. Creatinine Clearance 63 mL/min (70-130); Calcium 8.3 mg/dL (7.8-10.44); Carbon Dioxide 37 mmol/L (23-31); Chloride 97 mmol/L (98-107); Glucose 171 mg/dL (83-110); Potassium 5.5 mmol/L (3.5-5.1); Sodium 139 mmol/L (136-145)
[2021-02-20] MEDS: HumaLOG 300 UNITS/3 ML VIAL SC PRN ×2 (06:04→11:47)
[2021-02-20] MEDS: Mometasone 200 MCG/Formoterol 5 MCG 120 PUFF INHALER INH SCH ×2 (07:33→18:44)
[2021-02-20] MEDS: Enoxaparin Sodium 40 MG/0.4 ML SYRINGE SC SCH (08:26)
[2021-02-20] MEDS: Famotidine 20 MG TAB PO SCH (08:26)
[2021-02-20] MEDS: ALPRAZolam 0.5 MG TAB PO PRN ×2 (09:57→20:40)
[2021-02-20] MEDS ORDERED: Furosemide 40 MG/4 ML VIAL SLOW IVP SCH (10:30)
[2021-02-20] MEDS: hydrALAZINE 20 MG/ML VIAL SLOW IVP PRN (10:34)
[2021-02-20] MEDS ORDERED: Lorazepam 2 MG/ML VIAL SLOW IVP SCH (11:00)
[2021-02-20] MEDS: Labetalol HCl 100 MG/20 ML VIAL SLOW IVP PRN (13:01)
[2021-02-20] MEDS: Lantus 1000 UNITS/10 ML VIAL SC SCH (20:44)
[2021-02-21] MEDS: Cefepime 2 GM in Sodium Chloride 0.9% 100 ML IVPB SCH ×2 (01:14→13:24)
[2021-02-21] MEDS: VANCOMYCIN 1.25 GM/250 ML BAG 1.25 GM in Premix Bag 1 BAG IVPB SCH (03:37)
[2021-02-21 04:37] LABS: #Basophils 0.1 thou/uL (0.0-0.2); #Lymphocytes 0.5 thou/uL (1.20-3.40); #Monocytes 0.3 thou/uL (0.11-0.59); #Neutrophils 5.2 thou/uL (1.40-6.50); %Basophils 1.4 % (0.0-1.0); %Eosinophils 0.6 % (0.0-10.0); %Lymphocytes 8.2 % (21.0-51.0); %Monocytes 5.2 % (0.0-10.0); %Neutrophils 84.6 % (42.0-75.0); Hemoglobin 8.9 g/dL (12.0-16.0); Mean Corpuscular HGB CONC 31.9 g/dL (32.0-36.0); Mean Corpuscular Hemoglobin 30.7 pg (27.0-31.0); Mean Corpuscular Volume 96.2 fL (78.0-98.0); Mean Platelet Volume 7.6 fL (7.4-10.4); Platelet Count 264 thou/uL (130-400); RBC Distribution Width 14.6 % (11.5-14.5); Red Blood Cell (RBC) Count 2.88 mill/uL (4.20-5.40); White Blood Cell (WBC) Count 6.2 thou/uL (4.8-10.8)
[2021-02-21 05:00] LABS: Anion Gap 13 mmol/L (10-20); BUN (Urea Nitrogen) 36 mg/dL (9.8-20.1); Calc. Creatinine Clearance 60 mL/min (70-130); Calcium 8.8 mg/dL (7.8-10.44); Carbon Dioxide 36 mmol/L (23-31); Chloride 94 mmol/L (98-107); Glucose 225 mg/dL (83-110); Magnesium 2.4 mg/dL (1.6-2.6); Potassium 4.3 mmol/L (3.5-5.1); Sodium 139 mmol/L (136-145)
[2021-02-21] MEDS: HumaLOG 300 UNITS/3 ML VIAL SC PRN ×2 (06:20→17:01)
[2021-02-21] MEDS: Mometasone 200 MCG/Formoterol 5 MCG 120 PUFF INHALER INH SCH ×2 (06:54→19:09)
[2021-02-21] MEDS: Enoxaparin Sodium 40 MG/0.4 ML SYRINGE SC SCH (10:03)
[2021-02-21] MEDS: ALPRAZolam 0.5 MG TAB PO PRN ×2 (10:03→21:14)
[2021-02-21] MEDS: Azithromycin 250 MG TAB PO SCH (10:03)
[2021-02-21] MEDS: Famotidine 20 MG TAB PO SCH (10:03)
[2021-02-21] MEDS: methylPREDNISolone Sod Succ 40 MG VIAL IVP SCH ×2 (10:04→21:13)
[2021-02-21] MEDS: Albuterol 200 PUFF (6.7GM INHALER) INH PRN ×2 (10:04→17:05)
[2021-02-21] MEDS: hydrALAZINE 20 MG/ML VIAL SLOW IVP PRN (13:28)
[2021-02-21] MEDS: Sodium Chloride 0.9% 1,000 ML IV SCH (16:50)
[2021-02-21] MEDS: Acetaminophen 325 MG TAB PO PRN (21:14)
[2021-02-21] MEDS: Lantus 1000 UNITS/10 ML VIAL SC SCH (21:15)
[2021-02-22] MEDS: Cefepime 2 GM in Sodium Chloride 0.9% 100 ML IVPB SCH (00:21)
[2021-02-22] MEDS: Acetaminophen 325 MG TAB PO PRN (05:38)
[2021-02-22] MEDS: Sodium Chloride 0.9% 1,000 ML IV SCH (05:38)
[2021-02-22] MEDS: HumaLOG 300 UNITS/3 ML VIAL SC PRN (05:39)
[2021-02-22] MEDS: Mometasone 200 MCG/Formoterol 5 MCG 120 PUFF INHALER INH SCH ×3 (06:40→19:08)
[2021-02-22] MEDS ORDERED: methylPREDNISolone Sod Succ 40 MG VIAL IVP SCH (09:00)
[2021-02-22] MEDS: Famotidine 20 MG TAB PO SCH (09:26)
[2021-02-22] MEDS: Azithromycin 250 MG TAB PO SCH (09:26)
[2021-02-22] MEDS: hydrALAZINE 20 MG/ML VIAL SLOW IVP PRN (09:27)
[2021-02-22] MEDS: Enoxaparin Sodium 40 MG/0.4 ML SYRINGE SC SCH (09:27)
[2021-02-22] MEDS: ALPRAZolam 0.5 MG TAB PO PRN ×3 (09:27→22:18)
[2021-02-22 11:37] LABS: Anion Gap 11 mmol/L (10-20); BUN (Urea Nitrogen) 30 mg/dL (9.8-20.1); Calc. Creatinine Clearance 74 mL/min (70-130); Calcium 9.3 mg/dL (7.8-10.44); Carbon Dioxide 33 mmol/L (23-31); Chloride 98 mmol/L (98-107); Glucose 97 mg/dL (83-110); Potassium 3.9 mmol/L (3.5-5.1); Sodium 138 mmol/L (136-145)
[2021-02-22] MEDS: Labetalol HCl 100 MG/20 ML VIAL SLOW IVP PRN (16:18)
[2021-02-22] MEDS: Cefdinir 300 MG CAP PO SCH (21:03)
[2021-02-22] MEDS: Lantus 1000 UNITS/10 ML VIAL SC SCH (21:06)
[2021-02-23] MEDS ORDERED: Metoprolol Tartrate 5 MG/5 ML VIAL ONE (01:18)
[2021-02-23] MEDS: Acetaminophen 325 MG TAB PO PRN (01:24)
[2021-02-23] MEDS ORDERED: Metoprolol Tartrate 5 MG/5 ML VIAL IVP PRN (01:46)
[2021-02-23 01:55] LABS: Anion Gap 10 mmol/L (10-20); BUN (Urea Nitrogen) 30 mg/dL (9.8-20.1); Calc. Creatinine Clearance 70 mL/min (70-130); Calcium 9.2 mg/dL (7.8-10.44); Carbon Dioxide 34 mmol/L (23-31); Chloride 100 mmol/L (98-107); Glucose 93 mg/dL (83-110); Magnesium 2.2 mg/dL (1.6-2.6); Potassium 3.9 mmol/L (3.5-5.1); Sodium 140 mmol/L (136-145)
[2021-02-23] MEDS ORDERED: Sodium Chloride 0.9% 500 ML IVPB SCH (02:00)
[2021-02-23 02:20] LABS: CKMB 1.6 ng/mL (0-6.6)
[2021-02-23] MEDS: Mometasone 200 MCG/Formoterol 5 MCG 120 PUFF INHALER INH SCH ×2 (07:24→18:52)
[2021-02-23] MEDS ORDERED: predniSONE 20 MG TAB PO SCH (09:00)
[2021-02-23] MEDS: ALPRAZolam 0.5 MG TAB PO PRN ×2 (09:28→19:33)
[2021-02-23] MEDS: Cefdinir 300 MG CAP PO SCH ×2 (09:28→20:46)
[2021-02-23] MEDS: Azithromycin 250 MG TAB PO SCH (09:28)
[2021-02-23] MEDS: Enoxaparin Sodium 40 MG/0.4 ML SYRINGE SC SCH (09:28)
[2021-02-23] MEDS: Famotidine 20 MG TAB PO SCH (09:28)
[2021-02-23] MEDS: hydrALAZINE 20 MG/ML VIAL SLOW IVP PRN (17:00)
[2021-02-23] MEDS: HumaLOG 300 UNITS/3 ML VIAL SC PRN ×2 (17:24→20:45)
[2021-02-23] MEDS: Lantus 1000 UNITS/10 ML VIAL SC SCH (20:46)
[2021-02-24] MEDS: Mometasone 200 MCG/Formoterol 5 MCG 120 PUFF INHALER INH SCH ×2 (07:12→19:12)
[2021-02-24] MEDS ORDERED: predniSONE 20 MG TAB PO SCH (08:00)
[2021-02-24] MEDS: Cefdinir 300 MG CAP PO SCH ×2 (08:01→20:39)
[2021-02-24] MEDS: Famotidine 20 MG TAB PO SCH (08:02)
[2021-02-24] MEDS: Enoxaparin Sodium 40 MG/0.4 ML SYRINGE SC SCH (08:02)
[2021-02-24] MEDS: ALPRAZolam 0.5 MG TAB PO PRN ×2 (08:05→20:43)
[2021-02-24] MEDS: hydrALAZINE 20 MG/ML VIAL SLOW IVP PRN (08:19)
[2021-02-24] MEDS ORDERED: Atorvastatin Calcium 40 MG TAB PO SCH (09:00)
[2021-02-24] MEDS: Lisinopril 10 MG TAB PO SCH ×2 (11:27→20:38)
[2021-02-24] MEDS: Metoprolol Tartrate 25 MG TAB PO SCH ×2 (11:28→20:39)
[2021-02-24 20:37] VITALS: TEMP 98
[2021-02-24 20:40] VITALS: BP 178/73
[2021-02-24] MEDS: Lantus 1000 UNITS/10 ML VIAL SC SCH (20:45)
== END 2021-02-24 21:00 | DRG 871 ==
LOC: ERS 00:49 → CCU 07:32 → IMCU/EMU 02-19 12:45 → T4-B 02-24 00:59
PROVIDERS: ADMIT Internal Medicine; ATTEND Internal Medicine
PROC: 3E033XZ Introduction of Vasopressor into Peripheral Vein, Percutaneous Approach (ICD-10-PCS; principal; 2021-02-17)
PROC: 02HV33Z Insertion of Infusion Device into Superior Vena Cava, Percutaneous Approach (ICD-10-PCS; 2021-02-17)
PROC: B5181ZA Fluoroscopy of Superior Vena Cava using Low Osmolar Contrast, Guidance (ICD-10-PCS; 2021-02-17)
PROC: 5A09557 Assistance with Respiratory Ventilation, Greater than 96 Consecutive Hours, Continuous Positive Airway Pressure (ICD-10-PCS; 2021-02-19)
DX: A41.9 Sepsis, unspecified organism (principal); J15.9 Unspecified bacterial pneumonia; J96.21 Acute and chronic respiratory failure with hypoxia; I21.A1 Myocardial infarction type 2; I50.33 Acute on chronic diastolic (congestive) heart failure; J44.1 Chronic obstructive pulmonary disease with (acute) exacerbation; C34.90 Malignant neoplasm of unspecified part of unspecified bronchus or lung; N17.9 Acute kidney failure, unspecified; I13.0 Hypertensive heart and chronic kidney disease with heart failure and stage 1 through stage 4 chronic kidney disease, or unspecified chronic kidney disease; Z20.822 Contact with and (suspected) exposure to COVID-19; I25.10 Atherosclerotic heart disease of native coronary artery without angina pectoris; E78.5 Hyperlipidemia, unspecified; E11.22 Type 2 diabetes mellitus with diabetic chronic kidney disease; N18.30 Chronic kidney disease, stage 3 unspecified; D63.1 Anemia in chronic kidney disease; K21.9 Gastro-esophageal reflux disease without esophagitis; E11.42 Type 2 diabetes mellitus with diabetic polyneuropathy; R77.8 Other specified abnormalities of plasma proteins; G47.33 Obstructive sleep apnea (adult) (pediatric); F41.9 Anxiety disorder, unspecified; E83.41 Hypermagnesemia; E87.5 Hyperkalemia; I48.0 Paroxysmal atrial fibrillation; Z85.038 Personal history of other malignant neoplasm of large intestine; Z99.81 Dependence on supplemental oxygen; Z90.49 Acquired absence of other specified parts of digestive tract; Z86.16 Personal history of COVID-19; Z79.899 Other long term (current) drug therapy; Z88.6 Allergy status to analgesic agent; Z88.1 Allergy status to other antibiotic agents; Z79.82 Long term (current) use of aspirin; Z79.84 Long term (current) use of oral hypoglycemic drugs; Z79.51 Long term (current) use of inhaled steroids; Z79.52 Long term (current) use of systemic steroids; Z85.118 Personal history of other malignant neoplasm of bronchus and lung; Z92.3 Personal history of irradiation; Z95.5 Presence of coronary angioplasty implant and graft; Z82.49 Family history of ischemic heart disease and other diseases of the circulatory system; Z83.6 Family history of other diseases of the respiratory system; Z87.891 Personal history of nicotine dependence
CPT/HCPCS: 36415; 36416; 36556; 51701; 71045; 71275; 80048; 80053; 80202; 81003; 82553; 82805; 83605; 83690; 83735; 83880; 84100; 84484; 85025; 85379; 85610; 85730; 86140; 87040; 87086; 93005; 93010; 94640; 94660; 96365; 96366; 96367; 96375; J0360; J0456; J0692; J1650; J1815; J1940; J2060; J2405; J2920; J3370; J3490; J7030; J7050; J7512; J7620; U0002

== ENCOUNTER 2021-03-06 12:49 | Inpatient (IN) | payer MEDICARE, MEDICAID ==
[2021-03-06 13:35] LABS: #Eosinphils 0.1 thou/uL (0.0-0.7); #Lymphocytes 1.4 thou/uL (1.20-3.40); #Monocytes 0.6 thou/uL (0.11-0.59); #Neutrophils 5.9 thou/uL (1.40-6.50); %Basophils 0.5 % (0.0-1.0); %Eosinophils 1.5 % (0.0-10.0); %Lymphocytes 17.1 % (21.0-51.0); %Monocytes 7.8 % (0.0-10.0); %Neutrophils 73.1 % (42.0-75.0); Hemoglobin 8.8 g/dL (12.0-16.0); Mean Corpuscular HGB CONC 31.4 g/dL (32.0-36.0); Mean Corpuscular Hemoglobin 30.9 pg (27.0-31.0); Mean Corpuscular Volume 98.4 fL (78.0-98.0); Mean Platelet Volume 7.2 fL (7.4-10.4); Platelet Count 254 thou/uL (130-400); RBC Distribution Width 14.1 % (11.5-14.5); Red Blood Cell (RBC) Count 2.86 mill/uL (4.20-5.40)
[2021-03-06 13:45] LABS: INR-International Normal Ratio 0.9; Prothrombin Time 12.5 sec (12.0-14.7)
[2021-03-06] MEDS ORDERED: Acetaminophen 325 MG TAB ONE (13:45)
[2021-03-06] MEDS ORDERED: Cefepime 2 GM VIAL ONE (13:45)
[2021-03-06 13:48] LABS: PTT 20.1 sec (22.9-36.1)
[2021-03-06 13:52] LABS: ALT (SGPT) 32 U/L (8-55); AST (SGOT) 18 U/L (5-34); Albumin 3.5 g/dL (3.4-4.8); Alkaline Phosphatase 65 U/L (40-110); Anion Gap 12 mmol/L (10-20); BUN (Urea Nitrogen) 10 mg/dL (9.8-20.1); Bilirubin, Total 0.5 mg/dL (0.2-1.2); Calc. Creatinine Clearance 0 mL/min (70-130); Calcium 9.1 mg/dL (7.8-10.44); Carbon Dioxide 35 mmol/L (23-31); Chloride 96 mmol/L (98-107); Globulin 2.6 g/dL (2.4-3.5); Glucose 106 mg/dL (83-110); Potassium 4.8 mmol/L (3.5-5.1); Protein, Total 6.1 g/dL (5.8-8.1); Sodium 138 mmol/L (136-145)
[2021-03-06 13:52] LABS: Bilirubin Negative (Negative); Blood, Urine Negative (Negative); Clarity Clear (Clear); Glucose, Urine (Dipstick) Normal (Negative); Ketone, Urine Negative (Negative); Leukocyte Negative Leu/uL (Negative); Nitrite Negative (Negative); Protein, Urine (Dipstick) Negative (Neg-Trace); Specific Gravity, Urine 1.012 (1.002-1.036); Urobilinogen Normal mg/dL (Less than 2)
[2021-03-06] MEDS ORDERED: Vancomycin 1 GM/200 ML BAG ONE (14:58)
[2021-03-06 16:32] VITALS: BMI 31.4
[2021-03-06] MEDS ORDERED: Dextrose 5% in Water 1,000 ML IV PRN (16:38)
[2021-03-06] MEDS ORDERED: Dextrose 50% Abboject 50 ML SYRINGE SLOW IVP PRN (16:38)
[2021-03-06] MEDS ORDERED: HumaLOG 300 UNITS/3 ML VIAL SC PRN ×2 (16:38)
[2021-03-06 16:50] LABS: Troponin I 0.026 ng/mL (< 0.028)
[2021-03-06] MEDS ORDERED: FLU VACC QS2021-22(65YR UP)/PF 240 MCG/0.7 ML SYRINGE IM ONE (17:30)
[2021-03-06] MEDS ORDERED: Loperamide HCl 2 MG CAP PO PRN (18:36)
[2021-03-06] MEDS ORDERED: Calcium Carbonate 500 MG ChewTAB PO PRN (18:36)
[2021-03-06] MEDS ORDERED: Nitroglycerin 0.4 MG TAB (25 Tab Bottle) SL PRN (18:36)
[2021-03-06] MEDS ORDERED: Fluticasone Propionate Nasal Spray 16 gm Bottle NASAL PRN (18:36)
[2021-03-06] MEDS ORDERED: Polyethylene Glycol 3350 17 GM Packet PO PRN (18:36)
[2021-03-06] MEDS ORDERED: Loratadine 10 MG TAB PO PRN (18:40)
[2021-03-06] MEDS ORDERED: Vancomycin HCl 750 MG in Sodium Chloride 0.9% 250 ML 250 ML IVPB SCH (19:15)
[2021-03-06 20:16] LABS: Troponin I 0.017 ng/mL (< 0.028)
[2021-03-06] MEDS: traMADol HCl 50 MG TAB PO PRN (21:08)
[2021-03-06] MEDS: ALPRAZolam 0.25 MG TAB PO SCH (21:09)
[2021-03-06] MEDS: Benzonatate 100 MG CAP PO SCH (21:11)
[2021-03-06] MEDS: Metoprolol Tartrate 25 MG TAB PO SCH (21:12)
[2021-03-06] MEDS: Heparin 5,000 UNITS/ML VIAL SC SCH (21:12)
[2021-03-06] MEDS: busPIRone HCl 5 MG TAB PO SCH (21:12)
[2021-03-06] MEDS: Lisinopril 10 MG TAB PO SCH (21:12)
[2021-03-06] MEDS: Ferrous Sulfate 325 MG TAB PO SCH (21:12)
[2021-03-07] MEDS: Cefepime 2 GM in Sodium Chloride 0.9% 100 ML IVPB SCH ×2 (01:40→13:25)
[2021-03-07 04:44] LABS: #Eosinphils 0.1 thou/uL (0.0-0.7); #Monocytes 0.7 thou/uL (0.11-0.59); #Neutrophils 5.6 thou/uL (1.40-6.50); %Basophils 0.3 % (0.0-1.0); %Eosinophils 1.1 % (0.0-10.0); %Lymphocytes 13.6 % (21.0-51.0); %Monocytes 9.4 % (0.0-10.0); %Neutrophils 75.6 % (42.0-75.0); Hemoglobin 8.6 g/dL (12.0-16.0); Mean Corpuscular HGB CONC 31.2 g/dL (32.0-36.0); Mean Corpuscular Hemoglobin 30.9 pg (27.0-31.0); Mean Platelet Volume 7.1 fL (7.4-10.4); Platelet Count 227 thou/uL (130-400); RBC Distribution Width 13.8 % (11.5-14.5); Red Blood Cell (RBC) Count 2.79 mill/uL (4.20-5.40); White Blood Cell (WBC) Count 7.5 thou/uL (4.8-10.8)
[2021-03-07 05:05] LABS: Anion Gap 11 mmol/L (10-20); BUN (Urea Nitrogen) 10 mg/dL (9.8-20.1); Calc. Creatinine Clearance 63 mL/min (70-130); Calcium 8.8 mg/dL (7.8-10.44); Carbon Dioxide 36 mmol/L (23-31); Chloride 99 mmol/L (98-107); Glucose 105 mg/dL (83-110); Potassium 4.7 mmol/L (3.5-5.1); Sodium 141 mmol/L (136-145)
[2021-03-07] MEDS: traMADol HCl 50 MG TAB PO PRN (05:39)
[2021-03-07] MEDS: ALPRAZolam 0.25 MG TAB PO SCH ×3 (08:59→20:40)
[2021-03-07] MEDS: Atorvastatin Calcium 40 MG TAB PO SCH (08:59)
[2021-03-07] MEDS: Lisinopril 10 MG TAB PO SCH ×2 (09:00→20:34)
[2021-03-07] MEDS: metFORMIN 500 MG TAB PO SCH ×2 (09:00→16:29)
[2021-03-07] MEDS: traZODone HCl 50 MG TAB PO SCH (09:00)
[2021-03-07] MEDS: Benzonatate 100 MG CAP PO SCH ×3 (09:00→20:34)
[2021-03-07] MEDS: Aspirin 81 mg Enteric Coated Tablet PO SCH (09:00)
[2021-03-07] MEDS: Ferrous Sulfate 325 MG TAB PO SCH ×2 (09:00→20:34)
[2021-03-07] MEDS: Multivit, Therapeutic 1 TAB PO SCH (09:00)
[2021-03-07] MEDS: busPIRone HCl 5 MG TAB PO SCH ×2 (09:01→20:34)
[2021-03-07] MEDS: Amlodipine 5 MG TAB PO SCH (09:01)
[2021-03-07] MEDS: Metoprolol Tartrate 25 MG TAB PO SCH ×2 (09:02→20:35)
[2021-03-07] MEDS: Heparin 5,000 UNITS/ML VIAL SC SCH ×2 (09:02→20:34)
[2021-03-07 11:12] LABS: SARS-CoV-2 PCR by NAA Not Detected (NotDetected)
[2021-03-07] MEDS: methylPREDNISolone Sod Succ 40 MG VIAL IVP SCH ×2 (13:26→16:28)
[2021-03-07] MEDS: VANCOMYCIN 1.75 GM/350 ML BAG 1.75 GM in Premix Bag 1 BAG IVPB SCH (20:33)
[2021-03-08] MEDS: methylPREDNISolone Sod Succ 40 MG VIAL IVP SCH ×4 (00:50→17:20)
[2021-03-08] MEDS: Cefepime 2 GM in Sodium Chloride 0.9% 100 ML IVPB SCH ×2 (01:42→16:10)
[2021-03-08 05:32] LABS: #Lymphocytes 0.4 thou/uL (1.20-3.40); #Monocytes 0.1 thou/uL (0.11-0.59); %Eosinophils 0.2 % (0.0-10.0); %Lymphocytes 11.5 % (21.0-51.0); %Monocytes 2.5 % (0.0-10.0); %Neutrophils 85.8 % (42.0-75.0); Hemoglobin 8.1 g/dL (12.0-16.0); Mean Corpuscular HGB CONC 31.6 g/dL (32.0-36.0); Mean Corpuscular Hemoglobin 30.6 pg (27.0-31.0); Mean Corpuscular Volume 97.1 fL (78.0-98.0); Mean Platelet Volume 7.3 fL (7.4-10.4); Platelet Count 209 thou/uL (130-400); RBC Distribution Width 13.4 % (11.5-14.5); Red Blood Cell (RBC) Count 2.65 mill/uL (4.20-5.40); White Blood Cell (WBC) Count 3.5 thou/uL (4.8-10.8)
[2021-03-08 05:52] LABS: ALT (SGPT) 21 U/L (8-55); AST (SGOT) 13 U/L (5-34); Albumin 3.1 g/dL (3.4-4.8); Alkaline Phosphatase 58 U/L (40-110); BUN (Urea Nitrogen) 19 mg/dL (9.8-20.1); Bilirubin, Total 0.5 mg/dL (0.2-1.2); Calc. Creatinine Clearance 75 mL/min (70-130); Calcium 8.7 mg/dL (7.8-10.44); Globulin 2.3 g/dL (2.4-3.5); Glucose 158 mg/dL (83-110); Protein, Total 5.4 g/dL (5.8-8.1)
[2021-03-08 06:01] LABS: Anion Gap 14 mmol/L (10-20); Carbon Dioxide 33 mmol/L (23-31); Chloride 98 mmol/L (98-107); Potassium 5.2 mmol/L (3.5-5.1); Sodium 140 mmol/L (136-145)
[2021-03-08] MEDS: Benzonatate 100 MG CAP PO SCH ×3 (09:42→20:46)
[2021-03-08] MEDS: Metoprolol Tartrate 25 MG TAB PO SCH ×2 (09:42→20:46)
[2021-03-08] MEDS: Multivit, Therapeutic 1 TAB PO SCH (09:42)
[2021-03-08] MEDS: ALPRAZolam 0.25 MG TAB PO SCH ×2 (09:42→20:45)
[2021-03-08] MEDS: Amlodipine 5 MG TAB PO SCH (09:43)
[2021-03-08] MEDS: Atorvastatin Calcium 40 MG TAB PO SCH (09:43)
[2021-03-08] MEDS: traZODone HCl 50 MG TAB PO SCH (09:43)
[2021-03-08] MEDS: Ferrous Sulfate 325 MG TAB PO SCH ×2 (09:43→20:46)
[2021-03-08] MEDS: metFORMIN 500 MG TAB PO SCH ×2 (09:43→16:10)
[2021-03-08] MEDS: busPIRone HCl 5 MG TAB PO SCH ×2 (09:44→20:46)
[2021-03-08] MEDS: Aspirin 81 mg Enteric Coated Tablet PO SCH (09:44)
[2021-03-08] MEDS: Heparin 5,000 UNITS/ML VIAL SC SCH ×2 (09:44→20:46)
[2021-03-08 15:10] LABS: Anion Gap 11 mmol/L (10-20); BUN (Urea Nitrogen) 25 mg/dL (9.8-20.1); Calc. Creatinine Clearance 74 mL/min (70-130); Calcium 9.1 mg/dL (7.8-10.44); Carbon Dioxide 34 mmol/L (23-31); Chloride 99 mmol/L (98-107); Glucose 135 mg/dL (83-110); Potassium 4.8 mmol/L (3.5-5.1); Sodium 139 mmol/L (136-145)
[2021-03-08 16:51] LABS: Anion Gap 12 mmol/L (10-20); BUN (Urea Nitrogen) 25 mg/dL (9.8-20.1); Calc. Creatinine Clearance 68 mL/min (70-130); Calcium 9.1 mg/dL (7.8-10.44); Carbon Dioxide 37 mmol/L (23-31); Chloride 97 mmol/L (98-107); Glucose 132 mg/dL (83-110); Potassium 4.6 mmol/L (3.5-5.1); Sodium 141 mmol/L (136-145)
[2021-03-08] MEDS: VANCOMYCIN 1.75 GM/350 ML BAG 1.75 GM in Premix Bag 1 BAG IVPB SCH (20:46)
[2021-03-08] MEDS: Acetaminophen 325 MG TAB PO PRN (20:47)
[2021-03-08 20:50] LABS: Vancomycin, Trough 19.2 ug/mL
[2021-03-09] MEDS: methylPREDNISolone Sod Succ 40 MG VIAL IVP SCH ×3 (00:30→12:05)
[2021-03-09 02:22] LABS: #Lymphocytes 0.5 thou/uL (1.20-3.40); #Monocytes 0.2 thou/uL (0.11-0.59); #Neutrophils 3.6 thou/uL (1.40-6.50); %Eosinophils 0.3 % (0.0-10.0); %Lymphocytes 11.9 % (21.0-51.0); %Monocytes 4.9 % (0.0-10.0); %Neutrophils 82.9 % (42.0-75.0); Mean Corpuscular HGB CONC 33.5 g/dL (32.0-36.0); Mean Corpuscular Hemoglobin 32.2 pg (27.0-31.0); Mean Corpuscular Volume 96.3 fL (78.0-98.0); Mean Platelet Volume 7.2 fL (7.4-10.4); Platelet Count 229 thou/uL (130-400); RBC Distribution Width 13.5 % (11.5-14.5); Red Blood Cell (RBC) Count 2.49 mill/uL (4.20-5.40); White Blood Cell (WBC) Count 4.3 thou/uL (4.8-10.8)
[2021-03-09 02:44] LABS: Magnesium 2.1 mg/dL (1.6-2.6)
[2021-03-09 02:48] LABS: Troponin I Less than 0.010 ng/mL (< 0.028)
[2021-03-09 02:55] LABS: ALT (SGPT) 39 U/L (8-55); AST (SGOT) 29 U/L (5-34); Albumin 3.2 g/dL (3.4-4.8); Alkaline Phosphatase 59 U/L (40-110); BUN (Urea Nitrogen) 26 mg/dL (9.8-20.1); Bilirubin, Total 0.4 mg/dL (0.2-1.2); Calc. Creatinine Clearance 64 mL/min (70-130); Calcium 8.7 mg/dL (7.8-10.44); Globulin 1.9 g/dL (2.4-3.5); Glucose 159 mg/dL (83-110); Protein, Total 5.1 g/dL (5.8-8.1)
[2021-03-09 03:04] LABS: Anion Gap 9 mmol/L (10-20); Carbon Dioxide 39 mmol/L (23-31); Chloride 98 mmol/L (98-107); Potassium 4.6 mmol/L (3.5-5.1); Sodium 141 mmol/L (136-145)
[2021-03-09] MEDS: Cefepime 2 GM in Sodium Chloride 0.9% 100 ML IVPB SCH (03:09)
[2021-03-09] MEDS: metFORMIN 500 MG TAB PO SCH ×2 (09:05→17:32)
[2021-03-09] MEDS: Multivit, Therapeutic 1 TAB PO SCH (09:05)
[2021-03-09] MEDS: Benzonatate 100 MG CAP PO SCH ×3 (09:05→19:39)
[2021-03-09] MEDS: Ferrous Sulfate 325 MG TAB PO SCH ×2 (09:05→19:39)
[2021-03-09] MEDS: ALPRAZolam 0.25 MG TAB PO SCH ×2 (09:05→19:38)
[2021-03-09] MEDS: Amlodipine 5 MG TAB PO SCH (09:06)
[2021-03-09] MEDS: traZODone HCl 50 MG TAB PO SCH (09:06)
[2021-03-09] MEDS: Heparin 5,000 UNITS/ML VIAL SC SCH ×2 (09:06→19:39)
[2021-03-09] MEDS: Aspirin 81 mg Enteric Coated Tablet PO SCH (09:06)
[2021-03-09] MEDS: hydrALAZINE 20 MG/ML VIAL SLOW IVP PRN ×2 (09:06→15:40)
[2021-03-09] MEDS: Metoprolol Tartrate 25 MG TAB PO SCH ×2 (09:06→19:39)
[2021-03-09] MEDS: Atorvastatin Calcium 40 MG TAB PO SCH (09:06)
[2021-03-09] MEDS: busPIRone HCl 5 MG TAB PO SCH ×2 (09:06→19:39)
[2021-03-09] MEDS ORDERED: Amlodipine 5 MG TAB PO SCH (12:30)
[2021-03-09] MEDS: Sodium Chloride 0.9% 1,000 ML IV SCH (13:45)
[2021-03-09] MEDS ORDERED: Magnevist 469MG/ML 20 ML VIAL ONE (14:20)
[2021-03-10] MEDS ORDERED: Cefepime 2 GM in Sodium Chloride 0.9% 100 ML IVPB SCH ×2 (02:00→16:00)
[2021-03-10] MEDS: Lorazepam 0.5 MG TAB PO PRN ×2 (02:50→14:53)
[2021-03-10 05:54] LABS: Thyroid Stimulating Hormone 0.6432 uIU/mL (0.35-4.94)
[2021-03-10] MEDS: Sodium Chloride 0.9% 1,000 ML IV SCH (06:03)
[2021-03-10] MEDS: hydrALAZINE 20 MG/ML VIAL SLOW IVP PRN (07:50)
[2021-03-10 08:08] LABS: ALT (SGPT) 46 U/L (8-55); AST (SGOT) 21 U/L (5-34); Albumin 3.3 g/dL (3.4-4.8); Alkaline Phosphatase 61 U/L (40-110); Anion Gap 10 mmol/L (10-20); BUN (Urea Nitrogen) 27 mg/dL (9.8-20.1); Bilirubin, Total 0.4 mg/dL (0.2-1.2); Calc. Creatinine Clearance 71 mL/min (70-130); Carbon Dioxide 36 mmol/L (23-31); Chloride 99 mmol/L (98-107); Globulin 2.3 g/dL (2.4-3.5); Glucose 107 mg/dL (83-110); Potassium 3.5 mmol/L (3.5-5.1); Protein, Total 5.6 g/dL (5.8-8.1); Sodium 141 mmol/L (136-145)
[2021-03-10] MEDS: traZODone HCl 50 MG TAB PO SCH (08:48)
[2021-03-10] MEDS: ALPRAZolam 0.25 MG TAB PO SCH ×2 (08:48→20:56)
[2021-03-10] MEDS: busPIRone HCl 5 MG TAB PO SCH ×2 (08:48→21:35)
[2021-03-10] MEDS: Amlodipine 5 MG TAB PO SCH (08:49)
[2021-03-10] MEDS: Metoprolol Tartrate 25 MG TAB PO SCH ×2 (08:50→20:56)
[2021-03-10] MEDS: Acetaminophen 325 MG TAB PO PRN (08:50)
[2021-03-10] MEDS: Benzonatate 100 MG CAP PO SCH ×3 (08:51→20:56)
[2021-03-10] MEDS: metFORMIN 500 MG TAB PO SCH ×2 (08:51→16:26)
[2021-03-10] MEDS: Aspirin 81 mg Enteric Coated Tablet PO SCH (08:51)
[2021-03-10] MEDS: Ferrous Sulfate 325 MG TAB PO SCH ×2 (08:52→20:56)
[2021-03-10] MEDS: Atorvastatin Calcium 40 MG TAB PO SCH (08:52)
[2021-03-10] MEDS: Multivit, Therapeutic 1 TAB PO SCH (08:52)
[2021-03-10] MEDS: predniSONE 20 MG TAB PO SCH (08:52)
[2021-03-10] MEDS: Heparin 5,000 UNITS/ML VIAL SC SCH ×2 (08:54→20:57)
[2021-03-10 10:34] LABS: Actual Bicarbonate (HCO3a) 37.9 mEq/L (22-28); Base Excess (BEa) 10.2 mEq/L (-2.0 to +3.0); Calcium, Ionized (arterial) 1.17 mmol/L (1.12-1.30); Carboxyhemoglobin (COHb) 0.3 gm% (0.0-3.0); O2 Tension (PaO2), arterial 128.7 mmHg (> 70.0); Potassium - ABG Lab 3.71 mmol/L (3.70-5.30); pH, Arterial 7.33 (7.35-7.45)
[2021-03-10 10:47] LABS: CO2 Tension 73.6 mmHg (35.0-45.0); Puncture Site LRA
[2021-03-10] MEDS: Amoxicillin/Potassium Clav 875 MG TAB PO SCH (20:56)
[2021-03-11] MEDS: Amoxicillin/Potassium Clav 875 MG TAB PO SCH (08:43)
[2021-03-11] MEDS: Aspirin 81 mg Enteric Coated Tablet PO SCH (08:43)
[2021-03-11] MEDS: Benzonatate 100 MG CAP PO SCH (08:43)
[2021-03-11] MEDS: Atorvastatin Calcium 40 MG TAB PO SCH (08:44)
[2021-03-11] MEDS: ALPRAZolam 0.25 MG TAB PO SCH (08:44)
[2021-03-11] MEDS: metFORMIN 500 MG TAB PO SCH (08:44)
[2021-03-11] MEDS: traZODone HCl 50 MG TAB PO SCH (08:44)
[2021-03-11] MEDS: predniSONE 20 MG TAB PO SCH (08:44)
[2021-03-11] MEDS: Multivit, Therapeutic 1 TAB PO SCH (08:45)
[2021-03-11] MEDS: Amlodipine 5 MG TAB PO SCH (08:45)
[2021-03-11] MEDS: busPIRone HCl 5 MG TAB PO SCH (08:45)
[2021-03-11] MEDS: Metoprolol Tartrate 25 MG TAB PO SCH (08:45)
[2021-03-11] MEDS: Ferrous Sulfate 325 MG TAB PO SCH (08:45)
[2021-03-11] MEDS: Heparin 5,000 UNITS/ML VIAL SC SCH (08:45)
[2021-03-11 12:55] VITALS: BP 177/72; TEMP 97.9
== END 2021-03-11 15:53 | DRG 871 ==
LOC: ERS 12:49 → 2NO 14:33 → ONC 03-10 14:00
PROVIDERS: ADMIT Internal Medicine; ATTEND Internal Medicine
DX: A41.9 Sepsis, unspecified organism (principal); J18.9 Pneumonia, unspecified organism; J96.21 Acute and chronic respiratory failure with hypoxia; J96.22 Acute and chronic respiratory failure with hypercapnia; C34.91 Malignant neoplasm of unspecified part of right bronchus or lung; J44.0 Chronic obstructive pulmonary disease with (acute) lower respiratory infection; N17.9 Acute kidney failure, unspecified; Z20.822 Contact with and (suspected) exposure to COVID-19; I12.9 Hypertensive chronic kidney disease with stage 1 through stage 4 chronic kidney disease, or unspecified chronic kidney disease; I25.10 Atherosclerotic heart disease of native coronary artery without angina pectoris; E78.5 Hyperlipidemia, unspecified; N18.30 Chronic kidney disease, stage 3 unspecified; K21.9 Gastro-esophageal reflux disease without esophagitis; E11.22 Type 2 diabetes mellitus with diabetic chronic kidney disease; R33.9 Retention of urine, unspecified; D63.1 Anemia in chronic kidney disease; E87.5 Hyperkalemia; T46.4X5A Adverse effect of angiotensin-converting-enzyme inhibitors, initial encounter; Z99.81 Dependence on supplemental oxygen; Z88.1 Allergy status to other antibiotic agents; Z88.5 Allergy status to narcotic agent; Z79.899 Other long term (current) drug therapy; Z79.84 Long term (current) use of oral hypoglycemic drugs; Z79.51 Long term (current) use of inhaled steroids; Z79.82 Long term (current) use of aspirin; Z95.5 Presence of coronary angioplasty implant and graft; Z90.49 Acquired absence of other specified parts of digestive tract; Z85.038 Personal history of other malignant neoplasm of large intestine; Z92.3 Personal history of irradiation
CPT/HCPCS: 36415; 36416; 36600; 51701; 70553; 71045; 80048; 80053; 80202; 81003; 82607; 82746; 82805; 83605; 83735; 83880; 84443; 84484; 85025; 85610; 85730; 87040; 87081; 87086; 90471; 90662; 93005; 93010; 93306; 94640; 94660; 94760; 96365; 96367; A9579; G0008; J0360; J0692; J1644; J2920; J3370; J3490; J7050; J7512; J7620; U0003; U0005

== ENCOUNTER 2021-04-20 16:07 | Inpatient (IN) | payer MEDICARE, MEDICAID ==
[2021-04-20 17:07] LABS: #Basophils 0.1 thou/uL (0.0-0.2); #Eosinphils 0.1 thou/uL (0.0-0.7); #Monocytes 0.6 thou/uL (0.11-0.59); %Eosinophils 1.3 % (0.0-10.0); %Lymphocytes 15.2 % (21.0-51.0); %Monocytes 8.3 % (0.0-10.0); %Neutrophils 74.3 % (42.0-75.0); Hemoglobin 9.5 g/dL (12.0-16.0); Mean Corpuscular HGB CONC 31.2 g/dL (32.0-36.0); Mean Corpuscular Hemoglobin 30.9 pg (27.0-31.0); Mean Corpuscular Volume 99.1 fL (78.0-98.0); Mean Platelet Volume 7.1 fL (7.4-10.4); Platelet Count 212 thou/uL (130-400); RBC Distribution Width 13.9 % (11.5-14.5); Red Blood Cell (RBC) Count 3.07 mill/uL (4.20-5.40); White Blood Cell (WBC) Count 6.7 thou/uL (4.8-10.8)
[2021-04-20 17:26] LABS: ALT (SGPT) 20 U/L (8-55); AST (SGOT) 14 U/L (5-34); Albumin 3.7 g/dL (3.4-4.8); Alkaline Phosphatase 82 U/L (40-110); BUN (Urea Nitrogen) 14 mg/dL (9.8-20.1); Bilirubin, Total 0.5 mg/dL (0.2-1.2); Calc. Creatinine Clearance 0 mL/min (70-130); Calcium 9.2 mg/dL (7.8-10.44); Globulin 2.2 g/dL (2.4-3.5); Glucose 113 mg/dL (83-110); Protein, Total 5.9 g/dL (5.8-8.1)
[2021-04-20 17:36] LABS: Anion Gap 15 mmol/L (10-20); Carbon Dioxide 38 mmol/L (23-31); Chloride 92 mmol/L (98-107); Potassium 4.9 mmol/L (3.5-5.1); Sodium 140 mmol/L (136-145)
[2021-04-20 17:45] LABS: Bilirubin Negative (Negative); Blood, Urine Negative (Negative); Clarity Clear (Clear); Glucose, Urine (Dipstick) Normal (Negative); Ketone, Urine Negative (Negative); Leukocyte Negative Leu/uL (Negative); Nitrite Negative (Negative); Protein, Urine (Dipstick) 50 mg/dL (Neg-Trace); RBC/HPF 0-3 HPF (0-3); Specific Gravity, Urine 1.026 (1.002-1.036); Squamous Epithelial 0-3 HPF (0-3); WBC/HPF 0-3 HPF (0-3); pH, Urine 5.5 (5.0-9.0)
[2021-04-20 17:46] LABS: Bacteria/HPF 1+ HPF (None Seen)
[2021-04-20 17:49] LABS: CKMB 0.7 ng/mL (0-6.6)
[2021-04-20] MEDS ORDERED: Azithromycin 500 MG VIAL ONE (18:35)
[2021-04-20] MEDS ORDERED: cefTRIAXone\\ROCEPHIN 2 GM in Sodium Chloride 0.9% 100 ML IVPB SCH (18:45)
[2021-04-20 19:46] LABS: SARS-CoV-2 NAA Rapid Test Not Detected (NotDetected)
[2021-04-20] MEDS ORDERED: Albuterol Sulfate 2.5 mg/3 ml Neb ONE (20:12)
[2021-04-20] MEDS ORDERED: Dexamethasone 10 MG/ML VIAL ONE (20:24)
[2021-04-20 20:31] LABS: Troponin I 0.032 ng/mL (< 0.028)
[2021-04-20] MEDS ORDERED: Furosemide 20 MG/2 ML VIAL ONE (21:59)
[2021-04-20] MEDS ORDERED: Acetaminophen 650 MG Suppository PR PRN (23:14)
[2021-04-20] MEDS ORDERED: Ondansetron PF 4 MG/2 ML Vial IVP PRN (23:14)
[2021-04-20] MEDS ORDERED: Ondansetron ODT 4 MG TAB PO PRN (23:14)
[2021-04-20 23:37] LABS: Troponin I 0.047 ng/mL (< 0.028)
[2021-04-20] MEDS ORDERED: Dextrose 5% in Water 1,000 ML IV PRN (23:48)
[2021-04-20] MEDS ORDERED: HumaLOG 300 UNITS/3 ML VIAL SC PRN (23:48)
[2021-04-20] MEDS ORDERED: Dextrose 50% Abboject 50 ML SYRINGE SLOW IVP PRN (23:48)
[2021-04-20] MEDS ORDERED: methylPREDNISolone Sod Succ/PF 125 MG/2 ML VIAL IVP SCH (23:59)
[2021-04-21 05:00] LABS: #Lymphocytes 0.2 thou/uL (1.20-3.40); #Neutrophils 5.4 thou/uL (1.40-6.50); %Basophils 0.1 % (0.0-1.0); %Eosinophils 0.3 % (0.0-10.0); %Lymphocytes 4.3 % (21.0-51.0); %Monocytes 0.6 % (0.0-10.0); %Neutrophils 94.8 % (42.0-75.0); Hemoglobin 9.8 g/dL (12.0-16.0); Mean Corpuscular HGB CONC 31.4 g/dL (32.0-36.0); Mean Corpuscular Hemoglobin 30.6 pg (27.0-31.0); Mean Corpuscular Volume 97.5 fL (78.0-98.0); Mean Platelet Volume 7.5 fL (7.4-10.4); Platelet Count 205 thou/uL (130-400); RBC Distribution Width 13.7 % (11.5-14.5); White Blood Cell (WBC) Count 5.7 thou/uL (4.8-10.8)
[2021-04-21 05:28] LABS: BUN (Urea Nitrogen) 15 mg/dL (9.8-20.1); Calc. Creatinine Clearance 49 mL/min (70-130); Calcium 9.6 mg/dL (7.8-10.44); Glucose 202 mg/dL (83-110)
[2021-04-21 05:37] LABS: Anion Gap 14 mmol/L (10-20); Chloride 88 mmol/L (98-107); Potassium 4.9 mmol/L (3.5-5.1); Sodium 139 mmol/L (136-145)
[2021-04-21 05:43] LABS: Carbon Dioxide 42 mmol/L (23-31); Critical Call Chemistry 2NO.AO
[2021-04-21] MEDS: Acetaminophen 325 MG TAB PO PRN ×2 (05:49→14:55)
[2021-04-21] MEDS: HumaLOG 300 UNITS/3 ML VIAL SC PRN ×3 (05:53→16:34)
[2021-04-21 06:55] LABS: pH, Arterial 7.27 (7.35-7.45)
[2021-04-21 06:56] LABS: Actual Bicarbonate (HCO3a) 47.4 mEq/L (22-28); CO2 Tension 105.7 mmHg (35.0-45.0); O2 Tension (PaO2), arterial 108.4 mmHg (> 70.0)
[2021-04-21 06:57] LABS: Analyzer IN Cardio OR; Base Excess (BEa) 16.8 mEq/L (-2.0 to +3.0); Calcium, Ionized (arterial) 1.15 mmol/L (1.12-1.30); Carboxyhemoglobin (COHb) 1.2 gm% (0.0-3.0); Hemoglobin (Hb) 10.6 g/dL (12.0-16.0); Potassium - ABG Lab 4.43 mmol/L (3.70-5.30)
[2021-04-21 06:58] LABS: ALV-art Gradient 115.975 mmHg (0-20); Puncture Site RRA
[2021-04-21] MEDS: methylPREDNISolone Sod Succ 40 MG VIAL IVP SCH (09:40)
[2021-04-21] MEDS: Enoxaparin Sodium 40 MG/0.4 ML SYRINGE SC SCH (09:40)
[2021-04-21] MEDS: ALPRAZolam 0.25 MG TAB PO SCH ×2 (10:40→21:13)
[2021-04-21] MEDS: cefTRIAXone\\ROCEPHIN 2 GM in Sodium Chloride 0.9% 100 ML IVPB SCH (10:51)
[2021-04-21] MEDS ORDERED: Guaifenesin DM 100-10/5 ML UDCUP PO PRN (14:10)
[2021-04-21] MEDS: Calcium Carbonate 500 MG ChewTAB PO PRN (14:55)
[2021-04-21] MEDS: Mag-Al 1200 mg/1200 mg/30 ML UDCUP PO PRN (15:28)
[2021-04-21] MEDS: metFORMIN 500 MG TAB PO SCH (16:34)
[2021-04-21] MEDS: Ferrous Sulfate 325 MG TAB PO SCH (16:34)
[2021-04-21 16:47] LABS: Troponin I 0.014 ng/mL (< 0.028)
[2021-04-21] MEDS: traZODone HCl 50 MG TAB PO SCH (21:12)
[2021-04-21] MEDS: Benzonatate 100 MG CAP PO SCH (21:12)
[2021-04-21] MEDS: busPIRone HCl 5 MG TAB PO SCH (21:12)
[2021-04-21] MEDS: Atorvastatin Calcium 40 MG TAB PO SCH (21:13)
[2021-04-21] MEDS: Metoprolol Tartrate 25 MG TAB PO SCH (21:13)
[2021-04-22] MEDS: Ferrous Sulfate 325 MG TAB PO SCH ×2 (08:55→16:05)
[2021-04-22] MEDS: metFORMIN 500 MG TAB PO SCH ×2 (08:55→16:05)
[2021-04-22] MEDS: methylPREDNISolone Sod Succ 40 MG VIAL IVP SCH (09:00)
[2021-04-22] MEDS ORDERED: Amlodipine 5 MG TAB PO SCH (09:00)
[2021-04-22] MEDS: Loratadine 10 MG TAB PO SCH (09:01)
[2021-04-22] MEDS: busPIRone HCl 5 MG TAB PO SCH ×2 (09:01→21:46)
[2021-04-22] MEDS: Furosemide 20 MG TAB PO SCH (09:01)
[2021-04-22] MEDS: Metoprolol Tartrate 25 MG TAB PO SCH ×2 (09:01→21:46)
[2021-04-22] MEDS: Enoxaparin Sodium 40 MG/0.4 ML SYRINGE SC SCH (09:01)
[2021-04-22] MEDS: Benzonatate 100 MG CAP PO SCH ×3 (09:01→21:47)
[2021-04-22] MEDS: Multivit, Therapeutic 1 TAB PO SCH (09:01)
[2021-04-22] MEDS: Aspirin 81 mg Enteric Coated Tablet PO SCH (09:01)
[2021-04-22] MEDS: ALPRAZolam 0.25 MG TAB PO SCH ×2 (09:01→21:47)
[2021-04-22] MEDS: cefTRIAXone\\ROCEPHIN 2 GM in Sodium Chloride 0.9% 100 ML IVPB SCH (09:17)
[2021-04-22 10:41] VITALS: BMI 30.9
[2021-04-22] MEDS: Mag-Al 1200 mg/1200 mg/30 ML UDCUP PO PRN (11:37)
[2021-04-22] MEDS: HumaLOG 300 UNITS/3 ML VIAL SC PRN ×2 (11:37→16:10)
[2021-04-22] MEDS ORDERED: cefTRIAXone\\ROCEPHIN 1 GM in Sodium Chloride 0.9% 100 ML IVPB SCH (18:00)
[2021-04-22] MEDS: Atorvastatin Calcium 40 MG TAB PO SCH (21:47)
[2021-04-22] MEDS: traZODone HCl 50 MG TAB PO SCH (21:47)
[2021-04-23 04:13] LABS: #Monocytes 0.4 thou/uL (0.11-0.59); #Neutrophils 4.9 thou/uL (1.40-6.50); %Lymphocytes 16.1 % (21.0-51.0); %Monocytes 6.4 % (0.0-10.0); %Neutrophils 77.4 % (42.0-75.0); Hemoglobin 8.8 g/dL (12.0-16.0); Mean Corpuscular HGB CONC 32.8 g/dL (32.0-36.0); Mean Corpuscular Hemoglobin 31.7 pg (27.0-31.0); Mean Corpuscular Volume 96.4 fL (78.0-98.0); Mean Platelet Volume 7.1 fL (7.4-10.4); Platelet Count 228 thou/uL (130-400); RBC Distribution Width 13.7 % (11.5-14.5); Red Blood Cell (RBC) Count 2.79 mill/uL (4.20-5.40); White Blood Cell (WBC) Count 6.3 thou/uL (4.8-10.8)
[2021-04-23] MEDS: Acetaminophen 325 MG TAB PO PRN (04:27)
[2021-04-23 04:30] LABS: BUN (Urea Nitrogen) 28 mg/dL (9.8-20.1); Calc. Creatinine Clearance 57 mL/min (70-130); Calcium 9.6 mg/dL (7.8-10.44); Glucose 109 mg/dL (83-110)
[2021-04-23 04:54] LABS: Chloride 89 mmol/L (98-107); Potassium 4.3 mmol/L (3.5-5.1); Sodium 139 mmol/L (136-145)
[2021-04-23 04:56] LABS: Carbon Dioxide 40 mmol/L (23-31)
[2021-04-23 05:04] LABS: Anion Gap 14 mmol/L (10-20)
[2021-04-23] MEDS: methylPREDNISolone Sod Succ 40 MG VIAL IVP SCH (09:20)
[2021-04-23] MEDS: Multivit, Therapeutic 1 TAB PO SCH (09:20)
[2021-04-23] MEDS: cefTRIAXone\\ROCEPHIN 2 GM in Sodium Chloride 0.9% 100 ML IVPB SCH (09:20)
[2021-04-23] MEDS: Metoprolol Tartrate 25 MG TAB PO SCH ×2 (09:20→19:45)
[2021-04-23] MEDS: Benzonatate 100 MG CAP PO SCH ×3 (09:20→19:46)
[2021-04-23] MEDS: Aspirin 81 mg Enteric Coated Tablet PO SCH (09:20)
[2021-04-23] MEDS: Enoxaparin Sodium 40 MG/0.4 ML SYRINGE SC SCH (09:20)
[2021-04-23] MEDS: Ferrous Sulfate 325 MG TAB PO SCH ×2 (09:21→16:48)
[2021-04-23] MEDS: busPIRone HCl 5 MG TAB PO SCH ×2 (09:21→19:46)
[2021-04-23] MEDS: ALPRAZolam 0.25 MG TAB PO SCH ×2 (09:21→19:46)
[2021-04-23] MEDS: Loratadine 10 MG TAB PO SCH (09:21)
[2021-04-23] MEDS: metFORMIN 500 MG TAB PO SCH ×2 (09:21→16:48)
[2021-04-23] MEDS: HumaLOG 300 UNITS/3 ML VIAL SC PRN (16:46)
[2021-04-23] MEDS: traZODone HCl 50 MG TAB PO SCH (19:46)
[2021-04-23] MEDS: Atorvastatin Calcium 40 MG TAB PO SCH (19:46)
[2021-04-24] MEDS ORDERED: predniSONE 20 MG TAB PO SCH (08:00)
[2021-04-24] MEDS: Benzonatate 100 MG CAP PO SCH ×3 (08:19→20:17)
[2021-04-24] MEDS: ALPRAZolam 0.25 MG TAB PO SCH ×2 (08:19→20:16)
[2021-04-24] MEDS: Multivit, Therapeutic 1 TAB PO SCH (08:21)
[2021-04-24] MEDS: metFORMIN 500 MG TAB PO SCH ×2 (08:21→16:41)
[2021-04-24] MEDS: Metoprolol Tartrate 25 MG TAB PO SCH ×2 (08:21→20:17)
[2021-04-24] MEDS: busPIRone HCl 5 MG TAB PO SCH ×2 (08:22→20:17)
[2021-04-24] MEDS: Aspirin 81 mg Enteric Coated Tablet PO SCH (08:22)
[2021-04-24] MEDS: Calcium Carbonate 500 MG ChewTAB PO PRN ×2 (08:22→15:24)
[2021-04-24] MEDS: Furosemide 20 MG TAB PO SCH (08:22)
[2021-04-24] MEDS: Loratadine 10 MG TAB PO SCH (08:22)
[2021-04-24] MEDS: Ferrous Sulfate 325 MG TAB PO SCH ×2 (08:24→16:41)
[2021-04-24] MEDS: cefTRIAXone\\ROCEPHIN 2 GM in Sodium Chloride 0.9% 100 ML IVPB SCH (08:24)
[2021-04-24] MEDS: Enoxaparin Sodium 40 MG/0.4 ML SYRINGE SC SCH (08:36)
[2021-04-24] MEDS: HumaLOG 300 UNITS/3 ML VIAL SC PRN (16:42)
[2021-04-24] MEDS: Atorvastatin Calcium 40 MG TAB PO SCH (20:16)
[2021-04-24] MEDS: Cefdinir 300 MG CAP PO SCH (20:17)
[2021-04-24] MEDS: traZODone HCl 50 MG TAB PO SCH (20:17)
[2021-04-25] MEDS: Calcium Carbonate 500 MG ChewTAB PO PRN (04:00)
[2021-04-25] MEDS: Mag-Al 1200 mg/1200 mg/30 ML UDCUP PO PRN (05:09)
[2021-04-25] MEDS ORDERED: predniSONE 20 MG TAB PO SCH (08:00)
[2021-04-25] MEDS: Cefdinir 300 MG CAP PO SCH (08:22)
[2021-04-25] MEDS: metFORMIN 500 MG TAB PO SCH (08:22)
[2021-04-25] MEDS: Multivit, Therapeutic 1 TAB PO SCH (08:23)
[2021-04-25] MEDS: Aspirin 81 mg Enteric Coated Tablet PO SCH (08:25)
[2021-04-25] MEDS: ALPRAZolam 0.25 MG TAB PO SCH (08:26)
[2021-04-25] MEDS: Ferrous Sulfate 325 MG TAB PO SCH (08:26)
[2021-04-25] MEDS: busPIRone HCl 5 MG TAB PO SCH (08:26)
[2021-04-25] MEDS: Benzonatate 100 MG CAP PO SCH ×2 (08:26→16:28)
[2021-04-25] MEDS: Metoprolol Tartrate 25 MG TAB PO SCH (08:27)
[2021-04-25] MEDS: Enoxaparin Sodium 40 MG/0.4 ML SYRINGE SC SCH (08:27)
[2021-04-25] MEDS: Loratadine 10 MG TAB PO SCH (08:27)
[2021-04-25 09:10] VITALS: BP 148/66; TEMP 98.1
== END 2021-04-25 16:47 | DRG 189 ==
LOC: ERS 16:07 → ERHOLD 18:15 → 2NO 22:12 → OBSVTOIN 04-21 07:03 → CCU 04-21 07:56 → IMCU/EMU 04-22 00:30 → T4-B 04-23 15:58
PROVIDERS: ADMIT Internal Medicine; ATTEND Internal Medicine
PROC: 5A09357 Assistance with Respiratory Ventilation, Less than 24 Consecutive Hours, Continuous Positive Airway Pressure (ICD-10-PCS; principal; 2021-04-21)
DX: J96.21 Acute and chronic respiratory failure with hypoxia (principal); J44.1 Chronic obstructive pulmonary disease with (acute) exacerbation; G93.49 Other encephalopathy; Z66 Do not resuscitate; G45.9 Transient cerebral ischemic attack, unspecified; J96.22 Acute and chronic respiratory failure with hypercapnia; Z20.822 Contact with and (suspected) exposure to COVID-19; I25.10 Atherosclerotic heart disease of native coronary artery without angina pectoris; G47.00 Insomnia, unspecified; I10 Essential (primary) hypertension; E78.5 Hyperlipidemia, unspecified; F41.9 Anxiety disorder, unspecified; K21.9 Gastro-esophageal reflux disease without esophagitis; D53.9 Nutritional anemia, unspecified; F03.90 Unspecified dementia, unspecified severity, without behavioral disturbance, psychotic disturbance, mood disturbance, and anxiety; E11.69 Type 2 diabetes mellitus with other specified complication; E11.42 Type 2 diabetes mellitus with diabetic polyneuropathy; Z86.73 Personal history of transient ischemic attack (TIA), and cerebral infarction without residual deficits; Z85.118 Personal history of other malignant neoplasm of bronchus and lung; Z86.711 Personal history of pulmonary embolism; Z88.1 Allergy status to other antibiotic agents; Z88.8 Allergy status to other drugs, medicaments and biological substances; Z79.82 Long term (current) use of aspirin; Z79.84 Long term (current) use of oral hypoglycemic drugs; Z79.899 Other long term (current) drug therapy; Z90.49 Acquired absence of other specified parts of digestive tract; Z90.710 Acquired absence of both cervix and uterus; Z90.89 Acquired absence of other organs; Z87.891 Personal history of nicotine dependence
CPT/HCPCS: 0240U; 36415; 36416; 36600; 71045; 80048; 80053; 81003; 81015; 82553; 82805; 83605; 84484; 85025; 87040; 87086; 93005; 93010; 94640; 94644; 94660; 96374; 96375; G0378; J0456; J0696; J1100; J1650; J1815; J1940; J2405; J2920; J2930; J3490; J7512; J7611; J7620

== ENCOUNTER 2021-05-01 00:57 | Emergency (ER) | payer MEDICARE, MEDICAID ==
[2021-05-01 02:08] LABS: #Basophils 0.1 thou/uL (0.0-0.2); #Eosinphils 0.1 thou/uL (0.0-0.7); #Lymphocytes 1.2 thou/uL (1.20-3.40); #Monocytes 0.6 thou/uL (0.11-0.59); #Neutrophils 3.9 thou/uL (1.40-6.50); %Basophils 0.9 % (0.0-1.0); %Eosinophils 1.2 % (0.0-10.0); %Lymphocytes 20.8 % (21.0-51.0); %Neutrophils 67.1 % (42.0-75.0); Hemoglobin 9.1 g/dL (12.0-16.0); Mean Corpuscular HGB CONC 31.2 g/dL (32.0-36.0); Mean Corpuscular Hemoglobin 30.9 pg (27.0-31.0); Mean Corpuscular Volume 98.9 fL (78.0-98.0); Mean Platelet Volume 7.3 fL (7.4-10.4); Platelet Count 276 thou/uL (130-400); RBC Distribution Width 13.9 % (11.5-14.5); Red Blood Cell (RBC) Count 2.93 mill/uL (4.20-5.40); White Blood Cell (WBC) Count 5.9 thou/uL (4.8-10.8)
[2021-05-01 02:28] LABS: BUN (Urea Nitrogen) 13 mg/dL (9.8-20.1); Calc. Creatinine Clearance 0 mL/min (70-130)
[2021-05-01 02:29] LABS: ALT (SGPT) 23 U/L (8-55); AST (SGOT) 15 U/L (5-34); Albumin 3.4 g/dL (3.4-4.8); Alkaline Phosphatase 61 U/L (40-110); Bilirubin, Total 0.3 mg/dL (0.2-1.2); Calcium 9.5 mg/dL (7.8-10.44); Globulin 2.2 g/dL (2.4-3.5); Glucose 126 mg/dL (83-110); Protein, Total 5.6 g/dL (5.8-8.1)
[2021-05-01 02:32] LABS: SARS-CoV-2 NAA Rapid Test Not Detected (NotDetected)
[2021-05-01 02:40] LABS: Anion Gap 14 mmol/L (10-20); Carbon Dioxide 39 mmol/L (23-31); Chloride 97 mmol/L (98-107); Potassium 4.3 mmol/L (3.5-5.1); Sodium 146 mmol/L (136-145)
== END 2021-05-01 04:46 ==
LOC: ERS 00:57
DX: J44.1 Chronic obstructive pulmonary disease with (acute) exacerbation (principal); Z20.822 Contact with and (suspected) exposure to COVID-19; I25.10 Atherosclerotic heart disease of native coronary artery without angina pectoris; I10 Essential (primary) hypertension; E78.5 Hyperlipidemia, unspecified; Z86.73 Personal history of transient ischemic attack (TIA), and cerebral infarction without residual deficits; D50.9 Iron deficiency anemia, unspecified; K21.9 Gastro-esophageal reflux disease without esophagitis; Z87.891 Personal history of nicotine dependence; Z79.84 Long term (current) use of oral hypoglycemic drugs; Z79.899 Other long term (current) drug therapy
CPT/HCPCS: 71045; 80053; 83605; 83880; 84484; 85025; 87040; 93005; 99285; U0002; 36415

== ENCOUNTER 2021-05-09 08:01 | Emergency (ER) | payer MEDICARE, MEDICAID ==
[2021-05-09] MEDS ORDERED: methylPREDNISolone Sod Succ/PF 125 MG/2 ML VIAL ONE (08:22)
[2021-05-09 08:38] LABS: #Lymphocytes 0.8 thou/uL (1.20-3.40); #Monocytes 0.6 thou/uL (0.11-0.59); #Neutrophils 6.8 thou/uL (1.40-6.50); %Basophils 0.5 % (0.0-1.0); %Eosinophils 0.6 % (0.0-10.0); %Lymphocytes 9.6 % (21.0-51.0); %Monocytes 6.9 % (0.0-10.0); %Neutrophils 82.5 % (42.0-75.0); Mean Corpuscular HGB CONC 31.5 g/dL (32.0-36.0); Mean Corpuscular Hemoglobin 30.8 pg (27.0-31.0); Mean Platelet Volume 7.7 fL (7.4-10.4); Platelet Count 208 thou/uL (130-400); RBC Distribution Width 13.8 % (11.5-14.5); Red Blood Cell (RBC) Count 2.92 mill/uL (4.20-5.40); White Blood Cell (WBC) Count 8.2 thou/uL (4.8-10.8)
[2021-05-09 09:13] LABS: ALT (SGPT) 29 U/L (8-55); AST (SGOT) 20 U/L (5-34); Albumin 3.5 g/dL (3.4-4.8); Alkaline Phosphatase 90 U/L (40-110); BUN (Urea Nitrogen) 9 mg/dL (9.8-20.1); Bilirubin, Total 0.5 mg/dL (0.2-1.2); Calc. Creatinine Clearance 0 mL/min (70-130); Calcium 9.6 mg/dL (7.8-10.44); Globulin 2.5 g/dL (2.4-3.5); Glucose 135 mg/dL (83-110); Magnesium 1.8 mg/dL (1.6-2.6)
[2021-05-09 09:27] LABS: Anion Gap 16 mmol/L (10-20); Carbon Dioxide 37 mmol/L (23-31); Chloride 94 mmol/L (98-107); Potassium 4.4 mmol/L (3.5-5.1); Sodium 143 mmol/L (136-145)
[2021-05-09 14:29] LABS: SARS-CoV-2 PCR by NAA Not Detected (NotDetected)
== END 2021-05-09 09:44 ==
LOC: ERS 08:01
DX: J44.1 Chronic obstructive pulmonary disease with (acute) exacerbation (principal); I25.10 Atherosclerotic heart disease of native coronary artery without angina pectoris; E78.5 Hyperlipidemia, unspecified; D50.9 Iron deficiency anemia, unspecified; E11.9 Type 2 diabetes mellitus without complications; K21.9 Gastro-esophageal reflux disease without esophagitis; I10 Essential (primary) hypertension; Z86.73 Personal history of transient ischemic attack (TIA), and cerebral infarction without residual deficits; Z87.891 Personal history of nicotine dependence; Z20.822 Contact with and (suspected) exposure to COVID-19; Z79.84 Long term (current) use of oral hypoglycemic drugs; Z79.899 Other long term (current) drug therapy
CPT/HCPCS: 71045; 80053; 83735; 83880; 84484; 85025; 93005; U0003; U0005; 96374; J2930

== ENCOUNTER 2021-05-18 13:16 | Inpatient (IN) | payer MEDICARE, MEDICAID ==
[2021-05-18 13:53] LABS: Base Excess 15.7 mEq/L (-2.0 to +3.0); Chloride (VBG) 91 mmol/L (98-106); Hemoglobin (Hb) 9.7 g/dL (11.7-16.1); Potassium (VBG) 5.14 mmol/L (3.70-5.30); Sodium 136.9 mmol/L (133-146)
[2021-05-18 13:57] LABS: Actual Bicarbonate (HCO3v) 45 mEq/L (22-28); Analyzer IN Cardio ER
[2021-05-18] MEDS ORDERED: Azithromycin 500 MG VIAL ONE ×2 (14:22→15:16)
[2021-05-18] MEDS ORDERED: cefTRIAXone\\ROCEPHIN 1 GM VIAL ONE (14:22)
[2021-05-18] MEDS ORDERED: cefTRIAXone\\ROCEPHIN 2 GM VIAL ONE (14:24)
[2021-05-18] MEDS ORDERED: Albuterol Sulfate 2.5 mg/3 ml Neb ONE (14:26)
[2021-05-18 14:27] LABS: #Eosinphils 0.1 thou/uL (0.0-0.7); #Lymphocytes 1.2 thou/uL (1.20-3.40); #Monocytes 0.5 thou/uL (0.11-0.59); #Neutrophils 5.6 thou/uL (1.40-6.50); %Basophils 0.4 % (0.0-1.0); %Eosinophils 1.5 % (0.0-10.0); %Lymphocytes 15.6 % (21.0-51.0); %Monocytes 7.1 % (0.0-10.0); %Neutrophils 75.4 % (42.0-75.0); Hemoglobin 9.4 g/dL (12.0-16.0); Mean Corpuscular HGB CONC 29.4 g/dL (32.0-36.0); Mean Corpuscular Hemoglobin 29.2 pg (27.0-31.0); Mean Corpuscular Volume 99.3 fL (78.0-98.0); Mean Platelet Volume 7.8 fL (7.4-10.4); Platelet Count 234 thou/uL (130-400); RBC Distribution Width 13.8 % (11.5-14.5); Red Blood Cell (RBC) Count 3.22 mill/uL (4.20-5.40); White Blood Cell (WBC) Count 7.4 thou/uL (4.8-10.8)
[2021-05-18 14:42] LABS: MDiff Complete? YES
[2021-05-18 14:43] LABS: Hypochromia SLIGHT = 6-15 cells (100X) (0-5/hpf); Macrocytosis SLIGHT = 6-15 cells (100X) (0-5/hpf); Ovalocytes SLIGHT = 2-5 cells (100X) (0-1/hpf); Platelet Morphology Comment Appears Adequate; Polychromasia SLIGHT = 2-3 cells (100X) (0-2/hpf); Stomatocytes SLIGHT = 2-5 cells (100X) (0-1/hpf)
[2021-05-18 14:46] LABS: ALT (SGPT) 24 U/L (8-55); AST (SGOT) 22 U/L (5-34); Albumin 3.8 g/dL (3.4-4.8); Alkaline Phosphatase 84 U/L (40-110); BUN (Urea Nitrogen) 16 mg/dL (9.8-20.1); Bilirubin, Total 0.4 mg/dL (0.2-1.2); Calc. Creatinine Clearance 0 mL/min (70-130); Calcium 9.2 mg/dL (7.8-10.44); Globulin 2.4 g/dL (2.4-3.5); Glucose 133 mg/dL (83-110); Protein, Total 6.2 g/dL (5.8-8.1)
[2021-05-18 14:57] LABS: Anion Gap 19 mmol/L (10-20); Carbon Dioxide 36 mmol/L (23-31); Chloride 89 mmol/L (98-107); Potassium 4.8 mmol/L (3.5-5.1); Sodium 139 mmol/L (136-145)
[2021-05-18] MEDS ORDERED: Ondansetron PF 4 MG/2 ML Vial IVP PRN (15:04)
[2021-05-18] MEDS ORDERED: Cefepime 2 GM VIAL ONE (18:18)
[2021-05-18] MEDS ORDERED: Vancomycin 1 GM/200 ML BAG ONE (18:18)
[2021-05-18] MEDS ORDERED: methylPREDNISolone Sod Succ 40 MG VIAL ONE (18:18)
[2021-05-18] MEDS ORDERED: Acetaminophen 325 MG TAB ONE (18:18)
[2021-05-18] MEDS: Cefepime 2 GM in Sodium Chloride 0.9% 100 ML IVPB SCH (18:33)
[2021-05-18] MEDS: methylPREDNISolone Sod Succ 40 MG VIAL IVP SCH (18:33)
[2021-05-18] MEDS: Acetaminophen 325 MG TAB PO PRN (18:34)
[2021-05-18] MEDS: Vancomycin 1 GM in Premix Bag 1 BAG IVPB SCH (19:09)
[2021-05-18] MEDS: Ipratropium Bromide 2.5 ml Neb NEB SCH (20:40)
[2021-05-18] MEDS ORDERED: Famotidine/PF 20 mg/2ml Vial ONE (21:00)
[2021-05-18 21:07] LABS: SARS-CoV-2 PCR by NAA Not Detected (NotDetected)
[2021-05-18] MEDS: Famotidine/PF 20 mg/2ml Vial SLOW IVP SCH (21:09)
[2021-05-19] MEDS ORDERED: methylPREDNISolone Sod Succ 40 MG VIAL ONE ×3 (00:22→11:19)
[2021-05-19] MEDS ORDERED: Ipratropium Bromide 2.5 ml Neb ONE ×2 (00:26→07:00)
[2021-05-19] MEDS: methylPREDNISolone Sod Succ 40 MG VIAL IVP SCH ×5 (00:27→23:11)
[2021-05-19] MEDS: Ipratropium Bromide 2.5 ml Neb NEB SCH ×5 (00:40→22:49)
[2021-05-19] MEDS ORDERED: Cefepime 2 GM VIAL ONE (04:41)
[2021-05-19] MEDS: Cefepime 2 GM in Sodium Chloride 0.9% 100 ML IVPB SCH ×2 (04:48→17:43)
[2021-05-19] MEDS ORDERED: Vancomycin 1 GM/200 ML BAG ONE (06:03)
[2021-05-19] MEDS: Vancomycin 1 GM in Premix Bag 1 BAG IVPB SCH ×2 (06:17→17:43)
[2021-05-19 07:20] LABS: Hemoglobin 8.7 g/dL (12.0-16.0); Mean Corpuscular Hemoglobin 29.2 pg (27.0-31.0); Mean Corpuscular Volume 97.3 fL (78.0-98.0); Mean Platelet Volume 7.3 fL (7.4-10.4); Platelet Count 251 thou/uL (130-400); RBC Distribution Width 13.6 % (11.5-14.5); Red Blood Cell (RBC) Count 2.97 mill/uL (4.20-5.40); White Blood Cell (WBC) Count 4.3 thou/uL (4.8-10.8)
[2021-05-19 07:26] VITALS: BMI 28.8
[2021-05-19 07:31] LABS: ALT (SGPT) 39 U/L (8-55); AST (SGOT) 21 U/L (5-34); Albumin 3.5 g/dL (3.4-4.8); Alkaline Phosphatase 88 U/L (40-110); BUN (Urea Nitrogen) 21 mg/dL (9.8-20.1); Bilirubin, Total 0.4 mg/dL (0.2-1.2); Calc. Creatinine Clearance 57 mL/min (70-130); Calcium 9.4 mg/dL (7.8-10.44); Globulin 2.5 g/dL (2.4-3.5); Glucose 227 mg/dL (83-110)
[2021-05-19 07:40] LABS: Anion Gap 17 mmol/L (10-20); Carbon Dioxide 37 mmol/L (23-31); Chloride 91 mmol/L (98-107); Potassium 5.3 mmol/L (3.5-5.1); Sodium 140 mmol/L (136-145)
[2021-05-19 07:51] LABS: Band 7 % (5-11); Hypochromia SLIGHT = 6-15 cells (100X) (0-5/hpf); Lymphocytes 7 % (21-51); MDiff Complete? YES; Neutrophil 84 % (42-75); Platelet Morphology Comment Appears Adequate; Polychromasia SLIGHT = 2-3 cells (100X) (0-2/hpf); Reactive Lymphocytes 2 % (0-10)
[2021-05-19] MEDS ORDERED: Enoxaparin Sodium 40 MG/0.4 ML SYRINGE ONE (09:45)
[2021-05-19] MEDS: Metoprolol Tartrate 25 MG TAB PO SCH ×2 (09:45→20:12)
[2021-05-19] MEDS ORDERED: Metoprolol Tartrate 25 MG TAB ONE (09:45)
[2021-05-19] MEDS ORDERED: Famotidine/PF 20 mg/2ml Vial ONE (09:45)
[2021-05-19] MEDS ORDERED: Aspirin Chewable 81 MG TAB ONE (09:45)
[2021-05-19] MEDS: Famotidine/PF 20 mg/2ml Vial SLOW IVP SCH ×2 (09:45→20:12)
[2021-05-19] MEDS: Enoxaparin Sodium 40 MG/0.4 ML SYRINGE SC SCH (09:45)
[2021-05-19] MEDS: Furosemide 20 MG TAB PO SCH (09:45)
[2021-05-19] MEDS: Aspirin 81 mg Enteric Coated Tablet PO SCH (09:45)
[2021-05-19] MEDS: busPIRone HCl 5 MG TAB PO SCH ×2 (09:45→20:12)
[2021-05-19] MEDS ORDERED: Azithromycin 500 MG in Sodium Chloride 0.9% 250 ML 250 ML IVPB SCH (15:00)
[2021-05-19] MEDS: metFORMIN 500 MG TAB PO SCH (17:43)
[2021-05-19] MEDS: Atorvastatin Calcium 40 MG TAB PO SCH (20:12)
[2021-05-19] MEDS: Acetaminophen 325 MG TAB PO PRN (20:12)
[2021-05-19] MEDS: ALPRAZolam 0.5 MG TAB PO PRN (20:12)
[2021-05-20 04:20] LABS: Band 3 % (5-11); Hemoglobin 8.4 g/dL (12.0-16.0); Lymphocytes 3 % (21-51); MDiff Complete? YES; Mean Corpuscular Volume 96.6 fL (78.0-98.0); Mean Platelet Volume 7.4 fL (7.4-10.4); Myelocyte 1 % (0-0); Neutrophil 93 % (42-75); Platelet Count 259 thou/uL (130-400); Platelet Morphology Comment Appears Adequate; RBC Distribution Width 13.9 % (11.5-14.5); Red Blood Cell (RBC) Count 2.79 mill/uL (4.20-5.40); White Blood Cell (WBC) Count 8.2 thou/uL (4.8-10.8)
[2021-05-20 04:29] LABS: ALT (SGPT) 39 U/L (8-55); AST (SGOT) 18 U/L (5-34); Albumin 3.3 g/dL (3.4-4.8); Alkaline Phosphatase 75 U/L (40-110); BUN (Urea Nitrogen) 27 mg/dL (9.8-20.1); Bilirubin, Total 0.2 mg/dL (0.2-1.2); Calc. Creatinine Clearance 53 mL/min (70-130); Globulin 2.2 g/dL (2.4-3.5); Glucose 221 mg/dL (83-110); Protein, Total 5.5 g/dL (5.8-8.1)
[2021-05-20 04:39] LABS: Anion Gap 14 mmol/L (10-20); Chloride 90 mmol/L (98-107); Potassium 4.6 mmol/L (3.5-5.1); Sodium 140 mmol/L (136-145)
[2021-05-20 04:44] LABS: Carbon Dioxide 41 mmol/L (23-31)
[2021-05-20] MEDS: Cefepime 2 GM in Sodium Chloride 0.9% 100 ML IVPB SCH ×2 (04:57→17:25)
[2021-05-20] MEDS: methylPREDNISolone Sod Succ 40 MG VIAL IVP SCH ×3 (05:03→17:26)
[2021-05-20 06:28] LABS: Vancomycin, Trough 19.7 ug/mL
[2021-05-20] MEDS: Ipratropium Bromide 2.5 ml Neb NEB SCH ×3 (07:05→19:35)
[2021-05-20] MEDS: Vancomycin 1 GM in Premix Bag 1 BAG IVPB SCH (07:06)
[2021-05-20] MEDS ORDERED: Dextrose 5% in Water 1,000 ML IV PRN (07:14)
[2021-05-20] MEDS ORDERED: Dextrose 50% Abboject 50 ML SYRINGE SLOW IVP PRN (07:14)
[2021-05-20] MEDS ORDERED: Loratadine 10 MG TAB PO PRN (08:30)
[2021-05-20] MEDS: Famotidine/PF 20 mg/2ml Vial SLOW IVP SCH ×2 (08:58→20:39)
[2021-05-20] MEDS: Enoxaparin Sodium 40 MG/0.4 ML SYRINGE SC SCH (08:58)
[2021-05-20] MEDS: metFORMIN 500 MG TAB PO SCH ×2 (08:58→17:25)
[2021-05-20] MEDS: Metoprolol Tartrate 25 MG TAB PO SCH ×2 (08:58→20:39)
[2021-05-20] MEDS: busPIRone HCl 5 MG TAB PO SCH ×2 (08:58→20:38)
[2021-05-20] MEDS: Aspirin 81 mg Enteric Coated Tablet PO SCH (08:58)
[2021-05-20] MEDS: ALPRAZolam 0.5 MG TAB PO PRN ×2 (09:00→20:47)
[2021-05-20] MEDS: Vancomycin HCl 750 MG in Sodium Chloride 0.9% 250 ML 250 ML IVPB SCH ×2 (10:50→20:38)
[2021-05-20] MEDS: HumaLOG 300 UNITS/3 ML VIAL SC PRN (17:25)
[2021-05-20] MEDS: Atorvastatin Calcium 40 MG TAB PO SCH (20:39)
[2021-05-21] MEDS: methylPREDNISolone Sod Succ 40 MG VIAL IVP SCH ×4 (00:25→23:31)
[2021-05-21] MEDS: Ipratropium Bromide 2.5 ml Neb NEB SCH ×4 (01:14→19:52)
[2021-05-21 04:14] LABS: Band 8 % (5-11); Hemoglobin 8.1 g/dL (12.0-16.0); Hypochromia SLIGHT = 6-15 cells (100X) (0-5/hpf); Lymphocytes 4 % (21-51); MDiff Complete? YES; Mean Corpuscular HGB CONC 31.9 g/dL (32.0-36.0); Mean Corpuscular Hemoglobin 30.7 pg (27.0-31.0); Mean Corpuscular Volume 96.4 fL (78.0-98.0); Mean Platelet Volume 7.1 fL (7.4-10.4); Monocytes 2 % (0-10); Neutrophil 86 % (42-75); Platelet Count 247 thou/uL (130-400); Platelet Morphology Comment Appears Adequate; RBC Distribution Width 13.7 % (11.5-14.5); Red Blood Cell (RBC) Count 2.63 mill/uL (4.20-5.40); White Blood Cell (WBC) Count 6.3 thou/uL (4.8-10.8)
[2021-05-21 04:20] LABS: ALT (SGPT) 56 U/L (8-55); AST (SGOT) 24 U/L (5-34); Albumin 3.1 g/dL (3.4-4.8); Alkaline Phosphatase 68 U/L (40-110); BUN (Urea Nitrogen) 34 mg/dL (9.8-20.1); Bilirubin, Total 0.2 mg/dL (0.2-1.2); Calc. Creatinine Clearance 58 mL/min (70-130); Calcium 8.8 mg/dL (7.8-10.44); Globulin 2.2 g/dL (2.4-3.5); Glucose 186 mg/dL (83-110); Protein, Total 5.3 g/dL (5.8-8.1)
[2021-05-21 04:29] LABS: Anion Gap 14 mmol/L (10-20); Carbon Dioxide 38 mmol/L (23-31); Chloride 93 mmol/L (98-107); Potassium 4.7 mmol/L (3.5-5.1); Sodium 140 mmol/L (136-145)
[2021-05-21] MEDS: Cefepime 2 GM in Sodium Chloride 0.9% 100 ML IVPB SCH ×2 (05:43→17:56)
[2021-05-21] MEDS: HumaLOG 300 UNITS/3 ML VIAL SC PRN ×2 (06:26→12:17)
[2021-05-21] MEDS: Acetaminophen 325 MG TAB PO PRN (08:50)
[2021-05-21] MEDS: ALPRAZolam 0.5 MG TAB PO PRN ×2 (08:51→19:24)
[2021-05-21] MEDS: Aspirin 81 mg Enteric Coated Tablet PO SCH (08:52)
[2021-05-21] MEDS: Metoprolol Tartrate 25 MG TAB PO SCH ×2 (08:52→20:20)
[2021-05-21] MEDS: Famotidine/PF 20 mg/2ml Vial SLOW IVP SCH ×2 (08:53→20:21)
[2021-05-21] MEDS: busPIRone HCl 5 MG TAB PO SCH ×2 (08:53→20:20)
[2021-05-21] MEDS: Vancomycin HCl 750 MG in Sodium Chloride 0.9% 250 ML 250 ML IVPB SCH (08:53)
[2021-05-21] MEDS: metFORMIN 500 MG TAB PO SCH ×2 (08:53→17:56)
[2021-05-21] MEDS: Enoxaparin Sodium 40 MG/0.4 ML SYRINGE SC SCH (08:53)
[2021-05-21] MEDS: Furosemide 20 MG TAB PO SCH (09:02)
[2021-05-21] MEDS ORDERED: Polyethylene Glycol 3350 17 GM Packet PO PRN (13:53)
[2021-05-21] MEDS: Atorvastatin Calcium 40 MG TAB PO SCH (20:21)
[2021-05-22] MEDS: Ipratropium Bromide 2.5 ml Neb NEB SCH ×5 (01:35→23:54)
[2021-05-22 04:08] LABS: Hemoglobin 8.4 g/dL (12.0-16.0); Mean Corpuscular HGB CONC 32.1 g/dL (32.0-36.0); Mean Corpuscular Hemoglobin 30.5 pg (27.0-31.0); Mean Platelet Volume 7.4 fL (7.4-10.4); Platelet Count 254 thou/uL (130-400); RBC Distribution Width 13.7 % (11.5-14.5); Red Blood Cell (RBC) Count 2.74 mill/uL (4.20-5.40); White Blood Cell (WBC) Count 6.8 thou/uL (4.8-10.8)
[2021-05-22 04:09] LABS: Band 2 % (5-11); Lymphocytes 6 % (21-51); MDiff Complete? YES; Monocytes 1 % (0-10); Neutrophil 91 % (42-75); Platelet Morphology Comment Appears Adequate
[2021-05-22 04:17] LABS: ALT (SGPT) 62 U/L (8-55); AST (SGOT) 23 U/L (5-34); Albumin 3.3 g/dL (3.4-4.8); Alkaline Phosphatase 64 U/L (40-110); BUN (Urea Nitrogen) 43 mg/dL (9.8-20.1); Bilirubin, Total 0.3 mg/dL (0.2-1.2); Calc. Creatinine Clearance 51 mL/min (70-130); Calcium 8.9 mg/dL (7.8-10.44); Globulin 2.3 g/dL (2.4-3.5); Glucose 178 mg/dL (83-110); Protein, Total 5.6 g/dL (5.8-8.1)
[2021-05-22 04:26] LABS: Anion Gap 14 mmol/L (10-20); Carbon Dioxide 38 mmol/L (23-31); Chloride 92 mmol/L (98-107); Potassium 4.7 mmol/L (3.5-5.1); Sodium 139 mmol/L (136-145)
[2021-05-22] MEDS: Cefepime 2 GM in Sodium Chloride 0.9% 100 ML IVPB SCH (04:56)
[2021-05-22] MEDS: HumaLOG 300 UNITS/3 ML VIAL SC PRN ×3 (06:40→21:10)
[2021-05-22] MEDS: ALPRAZolam 0.5 MG TAB PO PRN ×2 (08:16→19:01)
[2021-05-22] MEDS: Enoxaparin Sodium 40 MG/0.4 ML SYRINGE SC SCH (08:16)
[2021-05-22] MEDS: Aspirin 81 mg Enteric Coated Tablet PO SCH (08:16)
[2021-05-22] MEDS: Famotidine/PF 20 mg/2ml Vial SLOW IVP SCH ×2 (08:16→19:58)
[2021-05-22] MEDS: Metoprolol Tartrate 25 MG TAB PO SCH ×2 (08:17→19:58)
[2021-05-22] MEDS: Calcium Carbonate 500 MG ChewTAB PO PRN ×2 (08:17→19:04)
[2021-05-22] MEDS: metFORMIN 500 MG TAB PO SCH (08:17)
[2021-05-22] MEDS: busPIRone HCl 5 MG TAB PO SCH ×2 (08:17→19:58)
[2021-05-22] MEDS: methylPREDNISolone Sod Succ 40 MG VIAL IVP SCH (12:30)
[2021-05-22] MEDS: Sodium Chloride 0.45% 1,000 ML IV SCH (15:24)
[2021-05-22] MEDS ORDERED: Amlodipine 10 MG TAB PO SCH (16:30)
[2021-05-22] MEDS: Acetaminophen 325 MG TAB PO PRN (19:00)
[2021-05-22] MEDS: Atorvastatin Calcium 40 MG TAB PO SCH (19:58)
[2021-05-23] MEDS: Calcium Carbonate 500 MG ChewTAB PO PRN (05:25)
[2021-05-23] MEDS: Acetaminophen 325 MG TAB PO PRN (05:33)
[2021-05-23 06:14] LABS: Band 4 % (5-11); Hemoglobin 9.3 g/dL (12.0-16.0); Hypochromia SLIGHT = 6-15 cells (100X) (0-5/hpf); Lymphocytes 15 % (21-51); MDiff Complete? YES; Mean Corpuscular HGB CONC 31.5 g/dL (32.0-36.0); Mean Platelet Volume 7.5 fL (7.4-10.4); Monocytes 10 % (0-10); Neutrophil 71 % (42-75); Platelet Count 332 thou/uL (130-400); Platelet Morphology Comment Appears Adequate; RBC Distribution Width 13.7 % (11.5-14.5); Red Blood Cell (RBC) Count 3.11 mill/uL (4.20-5.40)
[2021-05-23 06:26] LABS: ALT (SGPT) 71 U/L (8-55); AST (SGOT) 24 U/L (5-34); Albumin 3.7 g/dL (3.4-4.8); Alkaline Phosphatase 73 U/L (40-110); BUN (Urea Nitrogen) 41 mg/dL (9.8-20.1); Bilirubin, Total 0.5 mg/dL (0.2-1.2); Calc. Creatinine Clearance 62 mL/min (70-130); Calcium 9.3 mg/dL (7.8-10.44); Globulin 2.4 g/dL (2.4-3.5); Glucose 154 mg/dL (83-110); Protein, Total 6.1 g/dL (5.8-8.1)
[2021-05-23 06:35] LABS: Anion Gap 16 mmol/L (10-20); Carbon Dioxide 36 mmol/L (23-31); Chloride 91 mmol/L (98-107); Potassium 4.6 mmol/L (3.5-5.1); Sodium 138 mmol/L (136-145)
[2021-05-23] MEDS: Ipratropium Bromide 2.5 ml Neb NEB SCH ×2 (07:42→14:43)
[2021-05-23] MEDS: busPIRone HCl 5 MG TAB PO SCH (08:30)
[2021-05-23] MEDS: Sodium Chloride 0.45% 1,000 ML IV SCH (08:30)
[2021-05-23] MEDS: Famotidine/PF 20 mg/2ml Vial SLOW IVP SCH (08:30)
[2021-05-23] MEDS: Aspirin 81 mg Enteric Coated Tablet PO SCH (08:30)
[2021-05-23] MEDS: Metoprolol Tartrate 25 MG TAB PO SCH (08:30)
[2021-05-23] MEDS: Enoxaparin Sodium 40 MG/0.4 ML SYRINGE SC SCH (08:30)
[2021-05-23] MEDS: ALPRAZolam 0.5 MG TAB PO PRN (08:33)
[2021-05-23] MEDS ORDERED: NIFEdipine XL 60 MG TAB PO SCH (09:00)
[2021-05-23] MEDS ORDERED: methylPREDNISolone Sod Succ 40 MG VIAL IVP SCH (09:00)
[2021-05-23] MEDS ORDERED: Losartan 25 MG TAB PO SCH (09:00)
[2021-05-23] MEDS ORDERED: Furosemide 20 MG/2 ML VIAL SLOW IVP SCH (09:15)
[2021-05-23 11:48] VITALS: TEMP 98.1
[2021-05-23] MEDS: HumaLOG 300 UNITS/3 ML VIAL SC PRN (11:53)
[2021-05-23 16:03] VITALS: BP 166/77
[2021-05-24] MEDS ORDERED: Furosemide 20 MG/2 ML VIAL SLOW IVP SCH (09:00)
== END 2021-05-23 16:04 | DRG 189 ==
LOC: ERS 13:16 → ERHOLD 15:12 → IMCU/EMU 05-19 12:55 → MSONC 05-22 14:18
PROVIDERS: ADMIT Internal Medicine; ATTEND Internal Medicine
PROC: 5A09357 Assistance with Respiratory Ventilation, Less than 24 Consecutive Hours, Continuous Positive Airway Pressure (ICD-10-PCS; principal; 2021-05-18)
DX: J96.21 Acute and chronic respiratory failure with hypoxia (principal); I50.33 Acute on chronic diastolic (congestive) heart failure; G93.41 Metabolic encephalopathy; I13.0 Hypertensive heart and chronic kidney disease with heart failure and stage 1 through stage 4 chronic kidney disease, or unspecified chronic kidney disease; J44.1 Chronic obstructive pulmonary disease with (acute) exacerbation; C34.31 Malignant neoplasm of lower lobe, right bronchus or lung; E44.1 Mild protein-calorie malnutrition; J96.22 Acute and chronic respiratory failure with hypercapnia; Z20.822 Contact with and (suspected) exposure to COVID-19; N18.30 Chronic kidney disease, stage 3 unspecified; I25.10 Atherosclerotic heart disease of native coronary artery without angina pectoris; D63.1 Anemia in chronic kidney disease; K21.9 Gastro-esophageal reflux disease without esophagitis; D50.9 Iron deficiency anemia, unspecified; E11.22 Type 2 diabetes mellitus with diabetic chronic kidney disease; G47.33 Obstructive sleep apnea (adult) (pediatric); E11.42 Type 2 diabetes mellitus with diabetic polyneuropathy; K59.00 Constipation, unspecified; H52.13 Myopia, bilateral; F03.90 Unspecified dementia, unspecified severity, without behavioral disturbance, psychotic disturbance, mood disturbance, and anxiety; E11.69 Type 2 diabetes mellitus with other specified complication; F41.1 Generalized anxiety disorder; F32.A Depression, unspecified; Z51.5 Encounter for palliative care; Z99.81 Dependence on supplemental oxygen; Z85.038 Personal history of other malignant neoplasm of large intestine; Z95.5 Presence of coronary angioplasty implant and graft; Z98.890 Other specified postprocedural states; Z87.891 Personal history of nicotine dependence; Z88.1 Allergy status to other antibiotic agents; Z88.6 Allergy status to analgesic agent; Z90.49 Acquired absence of other specified parts of digestive tract; Z90.710 Acquired absence of both cervix and uterus; Z86.73 Personal history of transient ischemic attack (TIA), and cerebral infarction without residual deficits; Z90.09 Acquired absence of other part of head and neck; Z79.84 Long term (current) use of oral hypoglycemic drugs; Z79.899 Other long term (current) drug therapy; Z68.30 Body mass index [BMI] 30.0-30.9, adult; Z79.52 Long term (current) use of systemic steroids; Z79.82 Long term (current) use of aspirin
CPT/HCPCS: 36415; 36416; 71045; 80053; 80202; 82805; 83880; 84145; 84484; 85007; 85025; 85027; 87040; 93005; 94640; 94660; 96365; 96367; J0456; J0692; J0696; J1650; J1815; J1940; J2920; J3370; J3490; J7050; J7611; J7620; S0028; U0003; U0005

== ENCOUNTER 2021-06-01 09:25 | Emergency (ER) | payer MEDICARE, MEDICAID ==
[2021-06-01 10:22] LABS: #Lymphocytes 0.8 thou/uL (1.20-3.40); #Monocytes 0.7 thou/uL (0.11-0.59); %Basophils 0.3 % (0.0-1.0); %Eosinophils 0.4 % (0.0-10.0); %Lymphocytes 6.3 % (21.0-51.0); %Monocytes 5.5 % (0.0-10.0); %Neutrophils 87.5 % (42.0-75.0); Hemoglobin 8.3 g/dL (12.0-16.0); Mean Corpuscular HGB CONC 30.5 g/dL (32.0-36.0); Mean Corpuscular Hemoglobin 30.4 pg (27.0-31.0); Mean Corpuscular Volume 99.8 fL (78.0-98.0); Mean Platelet Volume 7.3 fL (7.4-10.4); Platelet Count 226 thou/uL (130-400); RBC Distribution Width 14.2 % (11.5-14.5); Red Blood Cell (RBC) Count 2.74 mill/uL (4.20-5.40); White Blood Cell (WBC) Count 12.6 thou/uL (4.8-10.8)
[2021-06-01 10:45] LABS: ALT (SGPT) 15 U/L (8-55); AST (SGOT) 10 U/L (5-34); Albumin 3.5 g/dL (3.4-4.8); Alkaline Phosphatase 66 U/L (40-110); BUN (Urea Nitrogen) 18 mg/dL (9.8-20.1); Bilirubin, Total 0.5 mg/dL (0.2-1.2); Calc. Creatinine Clearance 0 mL/min (70-130); Calcium 8.7 mg/dL (7.8-10.44); Globulin 2.1 g/dL (2.4-3.5); Glucose 185 mg/dL (83-110); Protein, Total 5.6 g/dL (5.8-8.1)
[2021-06-01 10:55] LABS: Anion Gap 13 mmol/L (10-20); Carbon Dioxide 40 mmol/L (23-31); Chloride 89 mmol/L (98-107); Potassium 4.9 mmol/L (3.5-5.1); Sodium 137 mmol/L (136-145)
== END 2021-06-01 13:59 | disposition home or self-care (01) ==
LOC: ERS 09:25
DX: J44.1 Chronic obstructive pulmonary disease with (acute) exacerbation (principal); I25.10 Atherosclerotic heart disease of native coronary artery without angina pectoris; E78.5 Hyperlipidemia, unspecified; Z86.73 Personal history of transient ischemic attack (TIA), and cerebral infarction without residual deficits; D50.9 Iron deficiency anemia, unspecified; I10 Essential (primary) hypertension; G47.00 Insomnia, unspecified; E11.42 Type 2 diabetes mellitus with diabetic polyneuropathy; Z87.891 Personal history of nicotine dependence
CPT/HCPCS: 36415; 71045; 80053; 83880; 84484; 85025; 93005

== ENCOUNTER 2021-06-12 14:12 | Emergency (ER) | payer MEDICARE, MEDICAID ==
[2021-06-12] MEDS ORDERED: Magnesium 2 GM/50 ML BAG (IN WATER) ONE (14:33)
[2021-06-12] MEDS ORDERED: methylPREDNISolone Sod Succ/PF 125 MG/2 ML VIAL ONE (14:33)
[2021-06-12 15:01] LABS: #Eosinphils 0.1 thou/uL (0.0-0.7); #Lymphocytes 0.6 thou/uL (1.20-3.40); #Monocytes 0.5 thou/uL (0.11-0.59); #Neutrophils 4.5 thou/uL (1.40-6.50); %Basophils 0.6 % (0.0-1.0); %Lymphocytes 10.1 % (21.0-51.0); %Neutrophils 79.3 % (42.0-75.0); Mean Corpuscular HGB CONC 30.8 g/dL (32.0-36.0); Mean Corpuscular Hemoglobin 31.1 pg (27.0-31.0); Platelet Count 238 thou/uL (130-400); Red Blood Cell (RBC) Count 2.58 mill/uL (4.20-5.40); White Blood Cell (WBC) Count 5.7 thou/uL (4.8-10.8)
[2021-06-12 15:26] LABS: ALT (SGPT) 18 U/L (8-55); AST (SGOT) 12 U/L (5-34); Albumin 3.6 g/dL (3.4-4.8); Alkaline Phosphatase 71 U/L (40-110); BUN (Urea Nitrogen) 9 mg/dL (9.8-20.1); Bilirubin, Total 0.5 mg/dL (0.2-1.2); Calc. Creatinine Clearance 0 mL/min (70-130); Calcium 9.5 mg/dL (7.8-10.44); Globulin 2.3 g/dL (2.4-3.5); Glucose 155 mg/dL (83-110); Protein, Total 5.9 g/dL (5.8-8.1)
[2021-06-12 15:36] LABS: Anion Gap 16 mmol/L (10-20); Carbon Dioxide 39 mmol/L (23-31); Chloride 89 mmol/L (98-107); Potassium 4.4 mmol/L (3.5-5.1); Sodium 140 mmol/L (136-145)
== END 2021-06-12 17:02 | disposition home or self-care (01) ==
LOC: ERS 14:12
DX: J44.1 Chronic obstructive pulmonary disease with (acute) exacerbation (principal); Z79.899 Other long term (current) drug therapy; Z79.82 Long term (current) use of aspirin; I25.10 Atherosclerotic heart disease of native coronary artery without angina pectoris; E78.5 Hyperlipidemia, unspecified; D50.9 Iron deficiency anemia, unspecified; E11.9 Type 2 diabetes mellitus without complications; K21.9 Gastro-esophageal reflux disease without esophagitis; Z87.891 Personal history of nicotine dependence
CPT/HCPCS: 36415; 71045; 80053; 83880; 84484; 85025; 96365; 96375; J2930; J3475

== ENCOUNTER 2021-07-15 18:38 | Inpatient (IN) | payer OTHER ==
[2021-07-15] MEDS ORDERED: Morphine 4 MG/ML VIAL SLOW IVP PRN ×2 (18:54→19:48)
[2021-07-15] MEDS ORDERED: Scopolamine 1.5 mg/72 hour Patch TOP SCH (19:00)
[2021-07-15] MEDS: Lorazepam 2 MG/ML VIAL SLOW IVP PRN ×4 (19:14→20:18)
[2021-07-15] MEDS: Morphine 4 MG/ML VIAL SLOW IVP SCH ×2 (19:43→21:01)
[2021-07-15] MEDS ORDERED: Ondansetron PF 4 MG/2 ML Vial IVP PRN (19:46)
[2021-07-15] MEDS ORDERED: Lorazepam 2 MG/ML VIAL SLOW IVP SCH (21:00)
== END 2021-07-15 22:11 | disposition expired | DRG 951 ==
LOC: CCU 18:38 → MSONC 22:11
PROVIDERS: ADMIT Family Medicine; ATTEND Family Medicine
DX: Z51.5 Encounter for palliative care (principal); A41.9 Sepsis, unspecified organism; R65.21 Severe sepsis with septic shock; G93.41 Metabolic encephalopathy; J96.21 Acute and chronic respiratory failure with hypoxia; J96.22 Acute and chronic respiratory failure with hypercapnia; N17.9 Acute kidney failure, unspecified; E87.2 Acidosis; J44.9 Chronic obstructive pulmonary disease, unspecified; E87.5 Hyperkalemia; Z88.1 Allergy status to other antibiotic agents; Z88.8 Allergy status to other drugs, medicaments and biological substances
CPT/HCPCS: J2060; J2270